=== PATIENT | female | born 1950 | race Caucasian/White ===

== ENCOUNTER 2020-11-23 17:46 | Observation (INO) ==
[2020-11-23 18:35] LABS: Basophils # (auto) 0.04 K/uL (0-0.2); Basophils % (auto) 0.5 %; Eosinophils # (auto) 0.14 K/uL (0-0.5); Eosinophils % (auto) 1.9 %; Hemoglobin 12.6 g/dL (12.0-16.0); Immature Granulocytes # (auto) 0.01 K/uL (0.00-0.02); Immature Granulocytes % (auto) 0.1 %; Lymphocytes # (auto) 1.69 K/uL (1.2-3.4); Lymphocytes % (auto) 22.8 %; Mean Corpuscular Hemoglobin 28.9 pg (25-34); Mean Corpuscular Hgb Conc 33.2 g/dL (32-36); Mean Corpuscular Volume 87.2 fL (80-100); Mean Platelet Volume 10.1 fL (7.4-10.4); Monocytes # (auto) 0.44 K/uL (0.11-0.59); Monocytes % (auto) 5.9 %; Neutrophils # (auto) 5.08 K/uL (1.4-6.5); Neutrophils % (auto) 68.8 %; Platelet Count 222 K/uL (130-400); RDW Coefficient of Variation 14.5 % (11.5-14.5); RDW Standard Deviation 45.9 fL (36.4-46.3); Red Blood Count 4.36 M/uL (4.2-5.4)
[2020-11-23 18:47] LABS: Partial Thromboplastin Ratio 0.9; Partial Thromboplastin Time 24.8 Seconds (21.0-31.0); Prothrombin Time 9.8 Seconds (9.0-12.0)
--- NOTE | 2020-11-23 18:52 | XRay Report ---
XR chest 1V portable CLINICAL HISTORY: Chest Pain COMPARISON STUDY: Chest radiograph November 16, 2020. FINDINGS: Lung volumes are normal. Lungs are clear. There is no pneumothorax or pleural effusion. Car diac size is normal. Mediastinal contours are normal. There is no evidence for pulmonary edema. IMPRESSION: No acute cardiopulmonary findings. ACT 112: Negative or not required by law. Electronically signed by: Presley Baer M.D. 11/23/2020 6:51 PM
[2020-11-23 18:53] LABS: Alanine Aminotransferase 25 U/L (12-78); Albumin Level 3.7 gm/dl (3.4-5.0); Aspartate Aminotransferase 10 U/L (15-37); BUN Creatinine Ratio 22.7 (10-20); Blood Urea Nitrogen 16 mg/dl (7-18); Calcium 8.9 mg/dl (8.5-10.1); Carbon Dioxide 26 mmol/L (21-32); Chloride 109 mmol/L (98-107); Est GFR (African American) 103.2 ml/min; Glucose 107 mg/dl (70-99); Potassium 3.9 mmol/L (3.5-5.1); Sodium 142 mmol/L (136-145)
[2020-11-23 18:58] LABS: Alkaline Phosphatase 68 U/L (45-117); Bilirubin,Total 0.3 mg/dl (0.2-1); Globulin 3.8 gm/dl (2.5-4.0); Total Protein 7.5 gm/dl (6.4-8.2); Troponin I < 0.015 ng/ml (0-0.045)
--- NOTE | 2020-11-23 19:19 | Emergency Department Note ---
Impression & Plan Atypical chest pain ED Provider Note NAME: DORIE JIMENEZ AGE: 70 SEX: F : 1950 ARRIVES VIA: Walk-In INFORMANT: Patient, ED PROVIDER(S): Leonardo Peres MD Chief Complaint: Chest pain HPI: Patient does present with concern for worsening chest pain. The patient does describe it as pressure and bandlike along the lower chest. The patient does notice some increasing exertional symptoms and associated shortness of breath. Patient denies any infectious symptoms. The patient is vaccinated for Covid. The patient denies any prior history of DVT or PE. The patient does have family history of CAD. Patient had been seen in the outpatient setting and was being followed and did have a referral with cardiology today with Dr. Alvarez who referred her here for further evaluation and treatment. The patient denies any diaphoresis, nausea, or vomiting. Patient denies any cough. Patient states that her current pain is around 6 out of 10. ROS: See HPI for pertinent positives and negatives. A total of 10 systems were reviewed and otherwise negative. Past medical history: See below Surgical history: See below Social history: See below Physical Exam: GENERAL: NAD, wearing a mask, non-toxic. EYE EXAM: Normal conjunctiva. PERRL, no anisocoria and EOM's grossly intact w/o pain. NECK: Supple, no nuchal rigidity, no adenopathy, non-tender. No signs of meningismus. LUNGS: Clear to auscultation. Normal chest wall mechanics. HEART: NSR, no MRG. ABDOMEN: Abdomen soft, non-tender, normo-active bowel sounds, no masses, no rebound or guarding. BACK: No CVA TTP. SKIN: No rashes and no bruising. UPPER EXTREMITIES: Upper extremities are grossly normal. LOWER EXTREMITIES: Grossly normal, no edema. Negative Homans' sign bilaterally. NEURO EXAM: A&O x3, cranial nerves II-XII grossly intact, normal speech, moves all 4 extremities on command w/o issue. Differential diagnoses: Cardiac ischemia, aortic dissection, pulmonary embolism, pneumothorax, pneumonia, pericarditis, myocarditis, esophageal rupture, GERD, cholecystitis, pancreatitis, musculoskeletal, as well as other pathologies. Course: Patient was seen and evaluated the bedside. Full history physical exam was performed. EKG interpreted by me Normal sinus rhythm, rate of 64, normal intervals, normal axis, T wave inversion in the lateral and high lateral leads. Imaging Studies: See Below Cardiac monitoring: An order was placed for continuous cardiac monitoring. The monitor shows a rate of 65 with sinus rhythm. MDM: Patient did present with concerns for atypical chest pain. The patient did have bladder completed along with an EKG. Patient's EKG did show T wave inversions in the lateral and high lateral leads. The patient was ordered full dose aspirin along with nitro. I did speak with the on-call hospitalist and the mayank ent was admitted to the medicine service by Dr. Hollingsworth. Initial troponin negative. Patient has a normal white count H&H and platelet count. The patient's kidney function does show some prerenal azotemia but is otherwise unremarkable. Covid negative. Chest x-ray is clear. Past Med/Surg History Medical History Acid reflux REASON FOR UPCOMING PROCEDURE Asthma CONTROLLED Bronchial spasms HX , NONE IN LONG TIME COPD (chronic obstructive pulmonary disease) CONTROLLED Dyslipidemia Gastritis REASON FOR UPCOMING PROCEDURE History of colon polyps History of depression History of high blood pressure IBS (irritable bowel syndrome) Nausea after anesthesia Surgical History History of bladder surgery BLADDER TAC History of cataract surgery BOTH EYES History of colonoscopy History of elbow surgery History of eye surgery LENSE IMPLANTS - BOTH EYES, MOST RECENT - LEFT, FEW WEEKS AGO - HEALING History of hysterectomy Family History Mother Family history of diabetes mellitus Father Family history of diabetes mellitus Brother Family history of diabetes mellitus Brother Family history of diabetes mellitus Sister Family history of diabetes mellitus Sister Family history of diabetes mellitus Social History Smoking Status: Never smoker Hx Alcohol Use: Yes Preferred Language: Algerian 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 Ability: Effective 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 Beliefs That Will Affect Care: None and Jainism Jainism Beliefs: PRESYBETERIAN Current Living Situation: Spouse and Family Feels Safe at Home: Yes Assistive Devices: None Allergies Allergies Allergy/AdvReac Type Severity Reaction Status Date / Time lisinopril AdvReac Intermediate Cough,bronc Verified 11/23/20 19:17 hospasm acetaminophen [From Percocet] AdvReac Unknown Nausea Verified 11/23/20 19:17 oxycodone [From Percocet] AdvReac Unknown Nausea Verified 11/23/20 19:17 Home Meds Home Medications Medication Instructions Recorded Confirmed insulin aspart U-100 100 unit/mL 14 unit SUBCUT UD 10/26/20 11/23/20 (3 mL) subcutaneous pen (Novolog Flexpen U-100 Insulin aspart) insulin glargine 100 unit/mL (3 30 unit SUBCUT QAM 10/26/20 11/23/20 mL) subcutaneous pen (Basaglar KwikPen U-100 Insulin) montelukast 10 mg tablet 10 mg PO QAM 10/26/20 11/23/20 (Singulair) pantoprazole 40 mg tablet,delayed 40 mg PO QAM 10/26/20 11/23/20 release (Protonix) ondansetron 4 mg disintegrating 4 mg PO Q8H PRN 11/12/20 11/23/20 tablet Previous Rx's Medication Instructions Recorded amlodipine 10 mg tablet 10 mg PO DAILY #30 tab 11/16/20 Results & Data (ED) Vital Signs Vital Signs - 24 hr 11/23/20 18:07 11/23/20 18:27 11/23/20 19:14 Temperature 36.9 C Temperature Source Temporal Artery Scan Pulse Rate 69 74 Pulse Rhythm Regular Pulse Strength Normal Respiratory Rate 20 17 Respiratory Effort / Characteristics Non-Labored Spontaneous Respiratory Depth Normal Respiratory Pattern Regular Blood Pressure 191/81 H 183/81 H Blood Pressure Mean 117 115 Blood Pressure Position Sitting Pulse Oximetry 97 100 Oxygen Delivery Method Room Air Room Air Sepsis Recent Fever Within 48 Hours No Sepsis New/Unexplained Change in Mental Status N/A Sepsis Action Taken by Nursing No Action Required 11/23/20 19:30 11/23/20 20:00 Temperature Temperature Source Pulse Rate 73 62 Pulse Rhythm Pulse Strength Respiratory Rate 21 15 Respiratory Effort / Characteristics Respiratory Depth Respiratory Pattern Blood Pressure 189/89 H 156/75 H Blood Pressure Mean 122 102 Blood Pressure Position Pulse Oximetry 98 95 Oxygen Delivery Method Room Air Sepsis Recent Fever Within 48 Hours Sepsis New/Unexplained Change in Mental Status Sepsis Action Taken by Prison Medications Current Medication List: was personally reviewed by me Laboratory Data Attestation: I reviewed the patient's lab results. Result diagrams: 11/23/20 18:24 11/23/20 18:24 Lab Results 11/23/20 11/23/20 11/23/20 Range/Units 18:24 18:24 18:24 WBC 7.40 (4.8-10.8) K/uL RBC 4.36 (4.2-5.4) M/uL Hgb 12.6 (12.0-16.0) g/dL Hct 38.0 (37-47) % MCV 87.2 (80-100) fL MCH 28.9 (25-34) pg MCHC 33.2 (32-36) g/dL RDW Std Deviation 45.9 (36.4-46.3) fL RDW Coeff of Rolando 14.5 (11.5-14.5) % Plt Count 222 (130-400) K/uL MPV 10.1 (7.4-10.4) fL Immature Gran % (Auto) 0.1 % Neut % (Auto) 68.8 % Lymph % (Auto) 22.8 % [place] % (Auto) 5.9 % Eos % (Auto) 1.9 % Baso % (Auto) 0.5 % Neut # (Auto) 5.08 (1.4-6.5) K/uL Lymph # (Auto) 1.69 (1.2-3.4) K/uL [place] # (Auto) 0.44 (0.11-0.59) K/uL Eos # (Auto) 0.14 (0-0.5) K/uL Baso # (Auto) 0.04 (0-0.2) K/uL Immature Gran # (Auto) 0.01 (0.00-0.02) K/uL PT 9.8 (9.0-12.0) Seconds INR 1.0 (0.9-1.1) APTT 24.8 (21.0-31.0) Seconds PTT Ratio 0.9 Sodium 142 (136-145) mmol/L Potassium 3.9 (3.5-5.1) mmol/L Chloride 109 H (98-107) mmol/L Carbon Dioxide 26 (21-32) mmol/L Anion Gap 7.0 (3-11) BUN 16 (7-18) mg/dl Creatinine 0.70 (0.6-1.2) mg/dl Est Cr Clr Drug Dosing 79.0 ml/min Est GFR ( Amer) 103.2 ml/min Est GFR (Non-Af Amer) 89.0 ml/min BUN/Creatinine Ratio 22.7 H (10-20) Glucose 107 H (70-99) mg/dl Calcium 8.9 (8.5-10.1) mg/dl Total Bilirubin 0.3 (0.2-1) mg/dl AST 10 L (15-37) U/L ALT 25 (12-78) U/L Alkaline Phosphatase 68 (45-117) U/L Troponin I < 0.015 (0-0.045) ng/ml Total Protein 7.5 (6.4-8.2) gm/dl Albumin 3.7 (3.4-5.0) gm/dl Globulin 3.8 (2.5-4.0) gm/dl Albumin/Globulin Ratio 1.0 (0.9-2) COVID-19 Eval Order SARS-CoV-2 (PCR) (Negative) 11/23/20 11/23/20 Range/Units 19:53 19:53 WBC (4.8-10.8) K/uL RBC (4.2-5.4) M/uL Hgb (12.0-16.0) g/dL Hct (37-47) % MCV (80-100) fL MCH (25-34) pg MCHC (32-36) g/dL RDW Std Deviation (36.4-46.3) fL RDW Coeff of Rolando (11.5-14.5) % Plt Count (130-400) K/uL MPV (7.4-10.4) fL Immature Gran % (Auto) % Neut % (Auto) % Lymph % (Auto) % [place] % (Auto) % Eos % (Auto) % Baso % (Auto) % Neut # (Auto) (1.4-6.5) K/uL Lymph # (Auto) (1.2-3.4) K/uL [place] # (Auto) (0.11-0.59) K/uL Eos # (Auto) (0-0.5) K/uL Baso # (Auto) (0-0.2) K/uL Immature Gran # (Auto) (0.00-0.02) K/uL PT (9.0-12.0) Seconds INR (0.9-1.1) APTT (21.0-31.0) Seconds PTT Ratio Sodium (136-145) mmol/L Potassium (3.5-5.1) mmol/L Chloride (98-107) mmol/L Carbon Dioxide (21-32) mmol/L Anion Gap (3-11) BUN (7-18) mg/dl Creatinine (0.6-1.2) mg/dl Est Cr Clr Drug Dosing ml/min Est GFR ( Amer) ml/min Est GFR (Non-Af Amer) ml/min BUN/Creatinine Ratio (10-20) Glucose (70-99) mg/dl Calcium (8.5-10.1) mg/dl Total Bilirubin (0.2-1) mg/dl AST (15-37) U/L ALT (12-78) U/L Alkaline Phosphatase (45-117) U/L Troponin I (0-0.045) ng/ml Total Protein (6.4-8.2) gm/dl Albumin (3.4-5.0) gm/dl Globulin (2.5-4.0) gm/dl Albumin/Globulin Ratio (0.9-2) COVID-19 Eval [address] Covid[address] [facility] SARS-CoV-2 (PCR) NEGATIVE (Negative) Administered Medications Heparin Sodium/Dextrose (Heparin Sodium/Dextrose) 25,000 units in 500 mls @ 16 mls/hr IV .Q24H [facility]; Protocol Stop: 12/23/20 22:14 Last Admin: 11/23/20 22:11 Dose: 800 units/hr, 16 mls/hr Documented by: [id number] Cosigned by: [id number] Nitroglycerin (Nitroglycerin Sl 0.4 Mg/Tab Tab) 0.4 mg SL PRN PRN PRN Reason: Chest Pain Stop: 12/23/20 19:34 Last Admin: 11/23/20 20:12 Dose: 0.4 mg Documented by: [id number] Discontinued Medications Aspirin (Aspirin Chew 324 Mg) 324 mg PO NOW STA Stop: 11/23/20 19:36 Last Admin: 11/23/20 19:51 Dose: 324 mg Documented by: [id number] Heparin Sodium (Porcine) (Heparin Ivp From [facility] Protocol (With Bolus)) 4,000 units IV NOW ONE Stop: 11/23/20 22:16 Last Admin: 11/23/20 22:10 Dose: 4,000 units Documented by: [id number] Cosigned by: [id number] Heparin Sodium/Dextrose (Heparin Iv Adult Wt-Based Low-Dose With Bolus Protocol) 1 ea IV NOW STA; Protocol Stop: 11/23/20 21:07 Last Admin: 11/23/20 22:10 Dose: Not Given Documented by: [id number] Nitroglycerin (Nitroglycerin Sl 0.4 Mg/Tab Tab) 0.4 mg SL NOW STA Stop: 11/23/20 19:36 Last Admin: 11/23/20 19:51 Dose: 0.4 mg Documented by: [id number] Imaging Data Radiologist's Impression: Chest X-Ray 11/23/20 18:22 XR chest 1V portable CLINICAL HISTORY: Chest Pain COMPARISON STUDY: Chest radiograph November 16, 2020. FINDINGS: Lung volumes are normal. Lungs are clear. There is no pneumothorax or pleural effusion. Cardiac size is normal. Mediastinal contours are normal. There is no evidence for pulmonary edema. IMPRESSION: No acute cardiopulmonary findings. ACT 112: Negative or not required by law. Electronically signed by: Presley Bear M.D. 11/23/2020 6:51 PM Discharge Plan Visit Data Chief Complaint: Cardiac Assessment Stated Complaint: ANGINA, REF BY DR. BLANCHARD ED Provider: Leonardo Peres Discharge Problem: Atypical chest pain Patient Disposition: Admitted As Inpatient Discharge Instructions Interventions: ED Discharge Assessment Last Done: 11/23/20 23:30
[2020-11-23] MEDS ORDERED: NITROGLYCERIN SL 0.4 MG/TAB TAB SL STA (19:35)
[2020-11-23] MEDS ORDERED: ASPIRIN CHEW 324 MG PO STA (19:35)
[2020-11-23] MEDS: NITROGLYCERIN SL 0.4 MG/TAB TAB SL PRN (20:12)
--- NOTE | 2020-11-23 20:42 | History & Physical Report ---
Date of Service November 23, 2020 Assessment & Plan (1) Unstable angina: Plan: 70-year-old female with a past medical history of dyslipidemia, hypertension, type 2 diabetes who is admitted to the hospital for work-up of unstable angina with atypical chest pain. Atypical chest pain Initial troponin negative, EKG without physical ST changes or major changes in morphology Improved symptoms with morphine and personal risk factors as well as extensive family history more concerning Heart score 5; We will admit to telemetry unit for monitoring. Cardiology consult appreciated, patient may be a candidate for catheterization given extensive risk factors, family history, current presentation. Started on aspirin daily, heparin drip N.p.o. Echo in the a.m. As needed nitro and EKG for chest pain Trend tropes x2 DM2 Continue home insulin glargine 30 units subcu a.m. Cut insulin dosing in half while n.p.o. Sliding scale insulin for mealtime coverage Carb consistent diet Lipid and A1c in the a.m. Hypertension Continue amlodipine 10 Will need to be started on metoprolol after catheterization Previously was on CPAP at home for treatment of CORAL however stopped using her machine because she was getting frequent pneumonias. She recently found out that her machine was recalled but has been unable to get a new one as of yet. CPAP nightly DVT ppx: on heparin drip FEN/GI: NPO, carb consistent after TTE/Cath Bowel regimen: miralax sched Code Status: full code Dispo: Med/Tele (2) Dyslipidemia: (3) Hypertension: (4) Diabetes type 2, controlled: History of Present Illness Primary Care Provider: Sae Wilkes MD 70-year-old female with past medical history of dyslipidemia, hypertension, type 2 diabetes who presents emergency department for atypical chest pain after being seen by her pharmacy ancillary earlier today. She states that a few days ago she saw her PCP who was concerned about the growing frequency of her chest pain episodes. He directed her to have bedrest at home and see Dr. yeboah. Today she was able to have her appointment with Dr. yeboah whereupon he felt that she was having episodes of unstable angina and directed her to come to the emergency department. She states that she has been having on and off periods of chest pain over the last 6 weeks that have been increasing in frequency. She states that at this time she has a tight "bandlike" pressure across the top of her abdomen just below her sternum, as well as across the tops of her shoulders. She states that this pain does not radiate anywhere else. She does have increased shortness of breath while she is up and walking around which is new. She states that sometimes this pain and shortness of breath will also wake her from sleeping in the middle of the night. In order to make the pain go away she normally either takes a warm shower or sits and tries to breathe easily until the pain goes away. She does attest to an extensive family history of cardiac disease. She has had multiple siblings and parents have heart attacks or of heart attacks between the ages of 63 and 70. She also has a strong family history of type 2 diabetes and has it herself. She was given 325 mg of aspirin upon arrival to the emergency room as well as a nitroglycerin sublingual tab which she said did improve some of the chest and shoulder pressure. She does attest that this year has been quite stressful for her. 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 She states that her daughter is also currently going through a divorce and she currently has custody of her 9-year-old special needs granddaughter. She is eager to get better and get out of the hospital so that she may return to taking care of her family. Allergies Allergy/AdvReac Type Severity Reaction Status Date / Time lisinopril AdvReac Intermediate Cough,bronc Verified 11/23/20 19:17 hospasm acetaminophen [From Percocet] AdvReac Unknown Nausea Verified 11/23/20 19:17 oxycodone [From Percocet] AdvReac Unknown Nausea Verified 11/23/20 19:17 Home Medications Medication Instructions Recorded Confirmed Type insulin aspart U-100 100 unit/mL 14 unit SUBCUT UD 10/26/20 11/23/20 History (3 mL) subcutaneous pen (Novolog Flexpen U-100 Insulin aspart) insulin glargine 100 unit/mL (3 30 unit SUBCUT QAM 10/26/20 11/23/20 History mL) subcutaneous pen (Basaglar KwikPen U-100 Insulin) montelukast 10 mg tablet 10 mg PO QAM 10/26/20 11/23/20 History (Singulair) pantoprazole 40 mg tablet,delayed 40 mg PO QAM 10/26/20 11/23/20 History release (Protonix) ondansetron 4 mg disintegrating 4 mg PO Q8H PRN 11/12/20 11/23/20 History tablet amlodipine 10 mg tablet 10 mg PO DAILY #30 tab 11/16/20 11/23/20 Rx Past Med/Surg History Medical History Acid reflux REASON FOR UPCOMING PROCEDURE Asthma CONTROLLED Bronchial spasms HX , NONE IN LONG TIME COPD (chronic obstructive pulmonary disease) CONTROLLED Dyslipidemia Gastritis REASON FOR UPCOMING PROCEDURE History of colon polyps History of depression History of high blood pressure IBS (irritable bowel syndrome) Nausea after anesthesia Surgical History History of bladder surgery BLADDER TAC History of cataract surgery BOTH EYES History of colonoscopy History of elbow surgery History of eye surgery LENSE IMPLANTS - BOTH EYES, MOST RECENT - LEFT, FEW WEEKS AGO - HEALING History of hysterectomy Family History Mother Family history of diabetes mellitus Father Family history of diabetes mellitus Brother Family history of diabetes mellitus Brother Family history of diabetes mellitus Sister Family history of diabetes mellitus Sister Family history of diabetes mellitus Social History Smoking Status: Never smoker Hx Alcohol Use: No Hx Substance Use: No Preferred Language: Trinidadian 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 Ability: Effective Manager Rehab Required: No Beliefs That Will Affect Care: None and Roman Catholic Roman Catholic Beliefs: EPISCOPAL Current Living Situation: Spouse and Family Current Living Situation Comment: Home with and granddaughter Feels Safe at Home: Yes Assistive Devices: None Review of Systems Review of Systems: All systems reviewed & are unremarkable except as noted in HPI & below Cardiovascular: + chest pain, + chest pain with activity, + dyspnea on exertion and + paroxysmal nocturnal dyspnea; no radiating jaw, neck or arm pain, no palpitations, no syncope, no edema and no calf pain Physical Exam Physical Exam: Constitutional: obese, in no apparent distress, sitting comfortably in bed. Eyes: EOMI, pupils equal and reactive bilaterally, no scleral icterus Cardiac: RRR, no murmurs, gallops or rubs. Normal S1, S2 Pulm: CTA BL, no wheezes, rhonchi, crackles or rubs, moving air well throughout both lungs Abd: soft, TTP over epigastrium and LUQ, normal bowel sounds, no rebound or guarding Extremities: 2+ peripheral pulses, no edema Neuro: no focal deficits, moving all 4 limbs, A&Ox3 Results & Data Results & Data ([facility]) Vital Signs (Past 12 Hours) Vital Signs Temp Pulse Resp BP Pulse Ox 11/23/20 20:00 62 15 156/75 H 95 11/23/20 19:30 73 21 189/89 H 98 11/23/20 19:14 74 17 183/81 H 100 11/23/20 18:07 36.9 C 69 20 191/81 H 97 Laboratory Results Laboratory Results WBC 7.40 K/uL (4.8-10.8) 11/23/20 18:24 RBC 4.36 M/uL (4.2-5.4) 11/23/20 18:24 Hgb 12.6 g/dL (12.0-16.0) 11/23/20 18:24 Hct 38.0 % (37-47) 11/23/20 18:24 MCV 87.2 fL (80-100) 11/23/20 18:24 MCH 28.9 pg (25-34) 11/23/20 18:24 MCHC 33.2 g/dL (32-36) 11/23/20 18:24 RDW Std Deviation 45.9 fL (36.4-46.3) 11/23/20 18:24 RDW Coeff of Rolando 14.5 % (11.5-14.5) 11/23/20 18:24 Plt Count 222 K/uL (130-400) 11/23/20 18:24 MPV 10.1 fL (7.4-10.4) 11/23/20 18:24 Immature Gran % (Auto) 0.1 % 11/23/20 18:24 Neut % (Auto) 68.8 % 11/23/20 18:24 Lymph % (Auto) 22.8 % 11/23/20 18:24 [place] % (Auto) 5.9 % 11/23/20 18:24 Eos % (Auto) 1.9 % 11/23/20 18:24 Baso % (Auto) 0.5 % 11/23/20 18:24 Neut # (Auto) 5.08 K/uL (1.4-6.5) 11/23/20 18:24 Lymph # (Auto) 1.69 K/uL (1.2-3.4) 11/23/20 18:24 [place] # (Auto) 0.44 K/uL (0.11-0.59) 11/23/20 18:24 Eos # (Auto) 0.14 K/uL (0-0.5) 11/23/20 18:24 Baso # (Auto) 0.04 K/uL (0-0.2) 11/23/20 18:24 Immature Gran # (Auto) 0.01 K/uL (0.00-0.02) 11/23/20 18:24 PT 9.8 Seconds (9.0-12.0) 11/23/20 18:24 INR 1.0 (0.9-1.1) 11/23/20 18:24 APTT 24.8 Seconds (21.0-31.0) 11/23/20 18:24 PTT Ratio 0.9 11/23/20 18:24 Sodium 142 mmol/L (136-145) 11/23/20 18:24 Potassium 3.9 mmol/L (3.5-5.1) 11/23/20 18:24 Chloride 109 mmol/L (98-107) H 11/23/20 18:24 Carbon Dioxide 26 mmol/L (21-32) 11/23/20 18:24 Anion Gap 7.0 (3-11) 11/23/20 18:24 BUN 16 mg/dl (7-18) 11/23/20 18:24 Creatinine 0.70 mg/dl (0.6-1.2) 11/23/20 18:24 Est Cr Clr Drug Dosing 79.0 ml/min 11/23/20 18:24 Est GFR ( Amer) 103.2 ml/min 11/23/20 18:24 Est GFR (Non-Af Amer) 89.0 ml/min 11/23/20 18:24 BUN/Creatinine Ratio 22.7 (10-20) H 11/23/20 18:24 Glucose 107 mg/dl (70-99) H 11/23/20 18:24 POC Glucose 100 mg/dl (70-99) H 11/23/20 23:56 Calcium 8.9 mg/dl (8.5-10.1) 11/23/20 18:24 Total Bilirubin 0.3 mg/dl (0.2-1) 11/23/20 18:24 AST 10 U/L (15-37) L 11/23/20 18:24 ALT 25 U/L (12-78) 11/23/20 18:24 Alkaline Phosphatase 68 U/L (45-117) 11/23/20 18:24 Troponin I < 0.015 ng/ml (0-0.045) 11/23/20 18:24 Total Protein 7.5 gm/dl (6.4-8.2) 11/23/20 18:24 Albumin 3.7 gm/dl (3.4-5.0) 11/23/20 18:24 Globulin 3.8 gm/dl (2.5-4.0) 11/23/20 18:24 Albumin/Globulin Ratio 1.0 (0.9-2) 11/23/20 18:24 COVID-19 Eval Order Covid19 at [facility] 11/23/20 19:53 SARS-CoV-2 (PCR) NEGATIVE (Negative) 11/23/20 19:53 Impressions Chest X-Ray 11/23/20 18:22 XR chest 1V portable CLINICAL HISTORY: Chest Pain COMPARISON STUDY: Chest radiograph November 16, 2020. FINDINGS: Lung volumes are normal. Lungs are clear. There is no pneumothorax or pleural effusion. Cardiac size is normal. Mediastinal contours are normal. There is no evidence for pulmonary edema. IMPRESSION: No acute cardiopulmonary findings. ACT 112: Negative or not required by law. Electronically signed by: Presley Bear M.D. 11/23/2020 6:51 PM Supervising Physician Co-Signing Physician Notes Patient seen and examined, chart reviewed, case discussed with Dr. Mohan and I agree with her assessment and plan as documented above. In brief, patient is a 70-year-old female with history of hypertension, hyperlipidemia, diabetes, GERD presenting at the request of her pharmacy ancillary for concern for unstable angina. Patient endorses increased frequency and severity of chest discomfort. She reports bandlike pressure across the top of her abdomen as well as into her shoulders which occurs both at rest and with exertion. She also endorses dyspnea on exertion as well as nocturnal dyspnea. Troponin x2 Negative EKG with mild T wave changes present in V5 V6 when compared to prior On exam she is afebrile, hemodynamically stable, nontoxic in appearance. HEENTnormocephalicatraumatic, pupils equal round reactive to light, neck supple, no JVD Heart+ S1, S2, regular, no murmurs/rubs/gallops Lungsequal air entry bilaterally, no rales/rhonchi/wheezes Abdomenpositive bowel sounds, soft, tender over epigastric area (states tenderness is different than the pain that she feels) no rebound/guarding Extremitieswarm, well-perfused, 2+ pulses no clubbing/cyanosis/edema Neurogrossly intact Labs and images reviewed Assessment/plan 70-year-old female presenting with bandlike upper abdominal pain as well as pain in her shoulders which occurs at rest and with exertion. Atypical presentation. Patient with significant risk factors to include hypertension, hyperlipidemia, diabetes, family history of coronary artery disease. She follows with cardiology, Dr. Yeboah, last seen on 11/23/20expressed concern for unstable angina Admit to medical with telemetrytrend troponin Check 2D echo Check lipid panel and hemoglobin A1c We will initiate heparin drip Cardiology consultation appreciated Remainder of plan as above Resident Activity Tracking Resident Involvement: Resident Care Provided Care Provided: Adult Hospital Medicine (1) Hypertension Hypertension type: unspecified Qualified Code(s): I10 - Essential (primary) hypertension
[2020-11-23] MEDS ORDERED: Heparin IV Adult Wt-Based Low-Dose WITH Bolus Protocol IV STA (21:06)
[2020-11-23] MEDS ORDERED: Heparin Adult LOW DOSE Wt-Based Dextrose 5% 25,000 units/500 mL IV SCH (22:15)
[2020-11-23] MEDS ORDERED: Heparin IVP from UFH Protocol (WITH Bolus) IV ONE (22:15)
[2020-11-24] MEDS ORDERED: POLYETHYLENE (MIRALAX) 17 GM PACK PO PRN (00:26)
[2020-11-24] MEDS ORDERED: METOPROLOL TARTRATE 1 MG/ML VIAL IV PRN (00:26)
[2020-11-24] MEDS ORDERED: MAGNESIUM HYDROXIDE SUSP 30 ML UDC PO PRN (00:26)
[2020-11-24] MEDS ORDERED: ONDANSETRON INJ 2 MG/ML 2 ML VIAL IV PRN (00:26)
[2020-11-24] MEDS ORDERED: MoRPHine SULFATE 2 MG/ML CARP IV PRN (00:26)
[2020-11-24] MEDS: SODIUM CHLORIDE 0.9% 1000ML 1,000 ML IV SCH ×2 (01:26→09:42)
[2020-11-24] MEDS ORDERED: CARBOHYDRATES FOR HYPOGLYCEMIA PO PRN (01:30)
[2020-11-24] MEDS ORDERED: DEXTROSE 50% 50 ML SYRINGE IV PRN (01:30)
[2020-11-24] MEDS ORDERED: GLUCOSE 10 TABS/TUBE PO PRN (01:30)
[2020-11-24] MEDS ORDERED: GLUCAGON FOR INJ 1 MG VIAL IM PRN (01:30)
[2020-11-24] MEDS ORDERED: GLUCOSE 40% GEL 15 GM TUBE PO PRN (01:30)
[2020-11-24 05:07] LABS: Partial Thromboplastin Ratio 1.9
[2020-11-24] MEDS: NITROGLYCERIN SL 0.4 MG/TAB TAB SL PRN (06:35)
--- NOTE | 2020-11-24 06:43 | Billing Data ---
Date of Service November 23, 2020 Coding Level of Care Code 51137 Initial Inpt Care Lvl 3
[2020-11-24 06:44] LABS: Chol HDL Ratio 4; Cholesterol 193 mg/dl (0-200); HDL Cholesterol 46 mg/dl; LDL Cholesterol Calculated 118 mg/dl; Triglycerides 145 mg/dl (0-150); VLDL Cholesterol 29 mg/dl
[2020-11-24 07:30] LABS: Estimated Average Glucose 169 mg/dl; Hemoglobin A1C 7.5 % (4.5-5.6)
--- NOTE | 2020-11-24 08:58 | Electrocardiogram Report ---
Test Reason : Blood Pressure : / mmHG Vent. Rate : 061 BPM Atrial Rate : 061 BPM P-R Int : 138 ms QRS Dur : 082 ms QT Int : 452 ms P-R-T Axes : 151 -25 155 degrees QTc Int : 455 ms Unusual P axis, possible ectopic atrial rhythm Left ventricular hypertrophy with repolarization abnormality Cannot rule out Septal infarct (cited on or before 23-NOV-2020) Abnormal ECG When compared with ECG of 23-NOV-2020 20:52, (unconfirmed) Ectopic atrial rhythm has replaced Sinus rhythm Confirmed by Emmett Osuna ([id number]) on 11/24/2020 8:58:18 AM Referred By: Iker Levy Confirmed By:Emmett Osuna
[2020-11-24] MEDS ORDERED: ASPIRIN 81 MG ECTAB PO SCH (09:00)
[2020-11-24] MEDS ORDERED: MONTELUKAST SODIUM 10 MG TABLET PO SCH (09:00)
[2020-11-24] MEDS ORDERED: amLODIPine BESYLATE 5 MG TAB PO SCH (09:00)
[2020-11-24] MEDS ORDERED: PANTOprazole 40 MG TAB PO SCH (09:00)
[2020-11-24] MEDS ORDERED: INSULIN GLARGINE SOLOSTAR 100 UNITS/ML 3 ML PEN SQ SCH (09:00)
[2020-11-24] MEDS ORDERED: NITROGLYCERIN/D5W 100MCG/ML 20ML SYR ONE (10:17)
[2020-11-24] MEDS ORDERED: HEPARIN (PORCINE) 1000 UNIT/ML 10 ML (CATH LAB USE ONLY) ONE (10:17)
[2020-11-24] MEDS ORDERED: niCARdipine HCL INJ 2.5 MG/ML 10 ML AMP ONE (10:17)
[2020-11-24] MEDS ORDERED: MIDAZOLAM HCL 1 MG/ML 2ML VIAL ONE (10:17)
[2020-11-24] MEDS ORDERED: fentaNYL citrate 100 MCG/2 ML VIAL ONE (10:17)
[2020-11-24] MEDS: INSULIN ASPART 100 UNITS/ML 3 ML PEN SQ SCH ×3 (10:39→17:23)
--- NOTE | 2020-11-24 10:43 | Pre Anesthesia Assessment ---
Date of Service November 24, 2020 Pre Sedation Assessment Vital Signs Temp Pulse Pulse Resp BP BP Pulse Ox 11/24/20 10:17 60 97 11/24/20 07:46 97.7 F 64 20 176/67 H 97 11/24/20 06:34 87 20 175/94 H 96 11/24/20 04:10 97.9 F 72 20 164/76 H 92 11/24/20 02:50 55 L 18 97 11/24/20 01:24 57 L 16 98 11/24/20 00:46 62 11/24/20 00:26 97.5 F L 68 16 170/72 H 97 11/23/20 23:00 56 L 14 160/69 H 98 11/23/20 22:30 56 L 15 168/67 H 99 11/23/20 21:30 61 16 153/70 H 98 11/23/20 21:00 59 L 12 161/85 H 98 11/23/20 20:30 64 23 98 11/23/20 20:00 62 15 156/75 H 95 11/23/20 19:30 73 21 189/89 H 98 11/23/20 19:14 74 17 183/81 H 100 11/23/20 18:07 98.4 F 69 20 191/81 H 97 Cardiovascular RRR, no murmur, no edema Respiratory normal respiratory effort, lungs clear to auscultation Pre-Sedation Airway Assessment Smoking Status: Never smoker Hx Sleep Apnea: Yes Hx Difficult Intubation: No Short, Thick Neck: No Thyromental Distance: > or= 3.5 Finger Breadths Oral Cavity: + WNL Mallampati Class: III ASA: ASA3 NPO Status Date of Last Intake of Fluids: 11/24/20 Time of Last Intake of Fluids: 07:00 Date of Last Intake of Solid Food: 11/23/20 Procedure Planning Contraindications for Sedation: none Current Medications Reviewed: Yes Notes The planned sedation has been discussed with the patient. Informed Consent was obtained. I have identified the patient, determined the appropriateness of sedation and have assessed the patient immediately prior to the procedure. All medicine(s) and interventions are by my order.
--- NOTE | 2020-11-24 11:05 | XCELERA ---
[id number]
--- NOTE | 2020-11-24 11:07 | Post Anesthesia Assessment ---
Date of Service November 24, 2020 Post Sedation Assessment Vital Signs Temp Pulse Pulse Resp BP BP Pulse Ox 11/24/20 10:17 60 97 11/24/20 07:46 97.7 F 64 20 176/67 H 97 11/24/20 06:34 87 20 175/94 H 96 11/24/20 04:10 97.9 F 72 20 164/76 H 92 11/24/20 02:50 55 L 18 97 11/24/20 01:24 57 L 16 98 11/24/20 00:46 62 11/24/20 00:26 97.5 F L 68 16 170/72 H 97 11/23/20 23:00 56 L 14 160/69 H 98 11/23/20 22:30 56 L 15 168/67 H 99 11/23/20 21:30 61 16 153/70 H 98 11/23/20 21:00 59 L 12 161/85 H 98 11/23/20 20:30 64 23 98 11/23/20 20:00 62 15 156/75 H 95 11/23/20 19:30 73 21 189/89 H 98 11/23/20 19:14 74 17 183/81 H 100 11/23/20 18:07 98.4 F 69 20 191/81 H 97 Recovery Score Activity: Moves 4 extremities Respiration: Deep Breath/Cough Circulation: +/-20% PreAnes Value Consciousness: Fully Awake Oxygen Saturation: O2 needed for >90% Discharge Sedation Level of Care: Fast Track Phase II Post Sedation Plan On clinical assessment, the patient appears to have tolerated the sedation without complications. Patient is recovering as anticipated. Patient will continue to be monitored by nursing and may be discharged when sedation discharge criteria are met per below protocol. Upon Completions of procedure up to 15 minutes continue every 5 minute vital sig ns and the P.A.R. score; then discharge to a Phase I or Fast Track to Phase II per the following guidelines: * Discharge Patient to appropriate Phase II area if PAR is 8 or greater or return to pre- procedure baseline. The post - procedure orders will be as directed. * If PAR score is less than 8 or not return to pre-procedure baseline then patient will follow Phase I monitoring till PAR is reached for Phase II. The Phase I may be done in procedure room or may call to secure a Phase I area. * If naloxone or flumazenil are used for reversal, hold in Phase I for continued monitoring from when last reversal dose was given for a minimum of 60 minutes or longer pending the nurse and/or physician discretion of patient condition before discharge to Phase II. Please call the Sedation Physician to re-evaluate and complete post-note for discharge to Phase II area. Do NOT discharge from procedure sedation or Phase 1 until post- sedation evaluation note is complete by procedure /sedation MD Sedation Discharge Instructions to be given to the patient at discharge to home.
--- NOTE | 2020-11-24 11:20 | Cardiac Catheterization ---
[facility] Data: Community Outreach Director Cardiac Status Clinical evaluation leading to the procedure CAD Presenation: Unstable angina Anginal Classification: CCS IV Heart Failure: No Cardiogenic Shock within 24 Hours: No Cardiac Arrest within 24 Hours: No Imaging Studies Past 6 Months: Yes Stress Studies Past 6 Months: No Diagnostic Physicians Name: Oj Ramos MD Status: Elective Closure Device Percutaneous Entry Location: Radial Closure Device: Radial Band Recommendations: Medical Therapy and/or Counseling Intraprocedure Events Significant Disection: No Perforation: No Cardiac Cath Procedure Full Procedure Date November 24, 2020 Pre-Procedure Diagnosis Pre-Procedure Diagnosis: Acute Coronary Syndrome and Angina AUC Score AUC Score: 7 Post-Procedure Diagnosis Post-Procedure Diagnosis: Moderate CAD Procedure(s) Performed Procedure(s) Performed: Coronary Angiography and Left Heart Cath Assembler [employer]ment Oj Ramos MD Network Operations Manager(s) Showers Estimated Blood Loss Estimated Blood Loss: 5 Medication(s) Medication(s): Fentanyl, Heparin, Lidocaine 1%, Nicardipine, Nitroglycerin and Versed Summary of Findings Indication: Suspected unstable angina Access: 6 Fr right radial artery Catheters: Pe Ell Findings: LM -normal caliber, no significant disease LAD -medium caliber, 30% proximal stenosis, distal vessel small with mild disease and wraps around apex. Small to medium caliber D1 with 70% ostial, 70 to 80% mid stenosis. Circumflex -medium caliber, proximal to mid luminal irregularities. RCA -dominant, small to medium caliber, mid segment angulated with luminal irregularities. Small PDA without significant disease. LVEDP -9 Arterial Closure: TR band Summary: 1. Mild nonobstructive CAD in major epicardial vessels -30% proximal LAD 2. Severe branch vessel disease Small to medium caliber D1 with 70% ostial, 70 to 80% mid stenosis 3. Normal intracardiac filling pressure Recommendations: No high risk CAD identified. Recommend medical management of branch vessel disease (appears to have some component of spasmdiagonal appears likely too small for stenting). Can discontinue heparin infusion. Continue amlodipine, consider addition of long-acting nitrate. Hemodynamics Rest Ao:: 112/47/69 Final Ao: 119/47/72 LV: 121/9 Recommendations Recommendations: Medical Therapy and/or Counseling Specimens Specimens: None Radiation Exposure (mGy) 531 Contrast (mls) 50 Fluids (cc crystalloids) Fluids (cc crystalloids): 70 Drains Drains: None Anesthesia Moderate 6513-2699 Procedural Complication(s) None Disposition PCU I attest to the content of the Intraoperative Record and any orders documented therein. Any exceptions are noted below. [facility] Card Cath Procedure Codes Cardiac Catheterization Procedure 1: Cardiovascular Cath Procedures: 86321 Coronaries and LHC (+/-LV) Moderate Sedation Procedure 1: Sedation/Anesthesia: 33424 Mod Sedation by the same physician;Init15 Min Child Age 5 & Up PG Care Time/CCT Total # of Minutes Spent Total Time Spent with Patient: Total time spent is greater than 50% in coordination of care (as documented) at patient's floor/unit and/or counseling patient:
--- NOTE | 2020-11-24 11:47 | Cardiology Progress Note ---
Date of Service November 24, 2020 Assessment & Plan (1) Atypical chest pain: Plan: 2. Branch vessel coronary artery disease 3. Hypertensive heart disease with preserved LV function 4. Type 2 diabetes No high risk findings on cardiac catheterization. Recommend medical management of branch vessel disease Can discontinue heparin Continue aspirin, start statin Continue amlodipine. Would add long-acting nitrate, start Imdur 30 mg daily. Consider SYDNEE/ARB as needed for additional BP control From a cardiac standpoint okay with discharge later today once TR band removed. Close follow-up with Dr. Levy on discharge. Admission and Anticipated Discharge Date Admission Date: November 23, 2020 Subjective Had intermittent chest pain overnight. Underwent cardiac catheterization which showed only branch vessel disease. No high risk findings. Review of Systems Review of Systems: All systems reviewed & are unremarkable except as noted in HPI & below Physical Exam Physical Exam: General: Comfortable HEENT: Sclerae anicteric Lungs: Clear to auscultation bilaterally Cardiac: Regular rate and rhythm, no murmurs. Vascular: TR band in place over right radial artery Abdomen: Soft, nontender Extremities: Well perfused, no peripheral edema Neuro: Nonfocal Psych: Alert orient x3, normal affect and mood Results & Data ([facility]) Vital Signs (Past 12 Hours) Vital Signs Temp Pulse Pulse Resp BP BP Pulse Ox 11/24/20 11:15 58 L 153/66 H 96 11/24/20 11:10 61 158/70 H 96 11/24/20 10:17 60 97 11/24/20 07:46 97.7 F 64 20 176/67 H 97 11/24/20 06:34 87 20 175/94 H 96 11/24/20 04:10 97.9 F 72 20 164/76 H 92 11/24/20 02:50 55 L 18 97 11/24/20 01:24 57 L 16 98 11/24/20 00:46 62 11/24/20 00:26 97.5 F L 68 16 170/72 H 97 PG Care Time/CCT Total # of Minutes Spent Total Time Spent with Patient: Total time spent is greater than 50% in coordination of care (as documented) at patient's floor/unit and/or counseling patient: Coding Level of Care Code 22886 Subseq Hosp Care Lvl 3 Diagnoses Atypical chest pain R07.89
[2020-11-24] MEDS ORDERED: ACETAMINOPHEN 500 MG TAB PO PRN (14:21)
--- NOTE | 2020-11-24 18:57 | Discharge Summary ---
Date of Service November 24, 2020 Admission HPI Per Admitting Provider 70-year-old female with past medical history of dyslipidemia, hypertension, type 2 diabetes who presents emergency department for atypical chest pain after being seen by her welder earlier today. She states that a few days ago she saw her PCP who was concerned about the growing frequency of her chest pain episodes. He directed her to have bedrest at home and see Dr. yeboah. Today she was able to have her appointment with Dr. yeboah whereupon he felt that she was having episodes of unstable angina and directed her to come to the emergency department. She states that she has been having on and off periods of chest pain over the last 6 weeks that have been increasing in frequency. She states that at this time she has a tight "bandlike" pressure across the top of her abdomen just below her sternum, as well as across the tops of her shoulders. She states that this pain does not radiate anywhere else. She does have increased shortness of breath while she is up and walking around which is new. She states that sometimes this pain and shortness of breath will also wake her from sleeping in the middle of the night. In order to make the pain go away she normally either takes a warm shower or sits and tries to breathe easily until the pain goes away. She does attest to an extensive family history of cardiac disease. She has had multiple siblings and parents have heart attacks or of heart attacks between the ages of 63 and 70. She also has a strong family history of type 2 diabetes and has it herself. She was given 325 mg of aspirin upon arrival to the emergency room as well as a nitroglycerin sublingual tab which she said did improve some of the chest and shoulder pressure. She does attest that this year has been quite stressful for her. 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 She states that her daughter is also currently going through a divorce and she currently has custody of her 9-year-old special needs granddaughter. She is eager to get better and get out of the hospital so that she may return to taking care of her family. Principal Diagnosis Atypical Chest Pain Discharge Exam Constitutional WD/WN, vitals as above Eyes + anicteric sclerae Neck trachea midline, no thyromegaly Respiratory normal respiratory effort, lungs clear to auscultation Cardiovascular RRR, no murmur, no edema Chest (Breasts) Additional Comments: Pain on palpation of L sternal border and inferior border of the anterior rib cage b/l. Gastrointestinal (Abdomen) normal bowel sounds, soft, nontender, no hepatosplenomegaly Skin no rashes, warm and dry Psychiatric A+Ox3, euthymic affect Discharge Data Allergies Allergy/AdvReac Type Severity Reaction Status Date / Time lisinopril AdvReac Intermediate Cough,bronc Verified 11/23/20 19:17 hospasm acetaminophen [From Percocet] AdvReac Unknown Nausea Verified 11/23/20 19:17 oxycodone [From Percocet] AdvReac Unknown Nausea Verified 11/23/20 19:17 Consultations 11/23/20 20:07 ED Decision to Admit Stat 11/24/20 00:26 Consult Cardiology Routine Procedures Performed Operation Date: 11/24/20 10:00 Actual Procedures p Cath, Left with Cors and Vent - Sae Ramos MD s Cineradiography w/Routine Exam - Sae Ramos MD Ordered Studies 11/24/20 10:16 CL Cath Imgs for PACS use only Routine Hospital Course (1) Atypical chest pain: Atypical chest pain -Went to the cath lab tech and revealed 30% stenosis of LAD and severe stenosis on minor, branching vessels. Serial troponins negative Cardiology consult recommended long acting nitro, the patient was prescribed isosorbide dinitrate. F/u with PCP within one week DM2 Continue home insulin regimen Hypertension Continue amlodipine 10mg po qd Continue CPAP when able to get replacement at home Total Time Total Time Spent Total Time Spent (In Minutes): 30 Discharge Plan Discharge Items Patient Disposition: Home - Self-Care Reason For Visit: UNSTABLE ANGINA Discharge Diagnosis: Atypical chest pain Activity: Per Instructions section Non-emergency contact: Primary Care Provider Call non-emergency contact if: you have any medication questions, your pain is not controlled and your pain is worsening Follow-up/Referrals: Sae Wilkes MD [Primary Care Provider] - Diet: Carb Consistent or DM2 Addtl Attending Provider Instructions: You were seen in the hospital for atypical chest pain. While you were in the hospital you had a heart catheterization done which revealed mild occlusion in the left anterior descending artery and some severe occlusion in some minor branching arteries. There was no intervention needed at this time. Follow-up with your primary care provider within the next week for further workup for your chest pain. Pending Studies at Discharge: No Stand-Alone Forms: My [facility], Smoking Cessation Medications and DC Order Prescriptions: New isosorbide dinitrate 40 mg capsule, extended release 40 mg PO DAILY Qty: 30 RF: 0 Continued pantoprazole [Protonix] 40 mg tablet,delayed release (DR/EC) 40 mg PO QAM RF: 0 Basaglar KwikPen U-100 Insulin 100 unit/mL (3 mL) insulin pen 30 unit SUBCUT QAM RF: 0 montelukast [Singulair] 10 mg Tablet 10 mg PO QAM RF: 0 insulin aspart U-100 [Novolog Flexpen U-100 Insulin] 100 unit/mL (3 mL) Insulin Pen 14 unit subcut UD RF: 0 ondansetron 4 mg tablet,disintegrating 4 mg PO Q8H PRN (Reason: nausea and vomiting) RF: 0 amlodipine 10 mg tablet 10 mg PO DAILY Qty: 30 RF: 0 Discharge Orders: Discharge Order (Routine); Ordered 11/24/20 Ordered By: Joey House/Other Patient Handouts: A1C, Managing Type 2 Diabetes, Special Foot Care for Diabetes, ED Chest Pain, Uncertain Cause Admission Data Admit Date/Time: 11/23/20 20:10 Attending Provider: Nereida Mccormick Admit Provider: Sherri Mohan Primary Care Provider: Sae Wilkes Other Providers: Darcy Hollingsworth ; Sae Bañuelos Other Interventions: Discharge Summary Assessment (RN) Last Done: 11/24/20 18:32 Supervising Physician Co-Signing Physician Notes Resident Physician Supervision Note: I independently interviewed and examined the patient and verified the matamoros history and physical, reviewed labs and image studies and agree with resident Dr. Sagastume findings and care plan. Resident Activity Tracking Resident Involvement: Resident Care Provided Care Provided: Adult Hospital Medicine
--- NOTE | 2020-11-26 15:57 | Electrocardiogram Report ---
Test Reason : Blood Pressure : / mmHG Vent. Rate : 064 BPM Atrial Rate : 064 BPM P-R Int : 136 ms QRS Dur : 076 ms QT Int : 394 ms P-R-T Axes : 052 003 147 degrees QTc Int : 406 ms Poor data quality, interpretation may be adversely affected Normal sinus rhythm Possible Left atrial enlargement Left ventricular hypertrophy with repolarization abnormality Cannot rule out Septal infarct (cited on or before 23-NOV-2020) Abnormal ECG When compared with ECG of 16-NOV-2020 12:30, No significant change Confirmed by Emmett Osuna ([id number]) on 11/26/2020 3:56:52 PM Referred By: Iker Levy Confirmed By:Emmett Osuna
--- NOTE | 2020-11-26 16:01 | Electrocardiogram Report ---
Test Reason : Blood Pressure : / mmHG Vent. Rate : 056 BPM Atrial Rate : 056 BPM P-R Int : 140 ms QRS Dur : 086 ms QT Int : 438 ms P-R-T Axes : 058 003 146 degrees QTc Int : 422 ms Sinus bradycardia Possible Left atrial enlargement Left ventricular hypertrophy with repolarization abnormality Cannot rule out Septal infarct (cited on or before 23-NOV-2020) Abnormal ECG When compared with ECG of 23-NOV-2020 18:13, (unconfirmed) No significant change Confirmed by Emmett Osuna ([id number]) on 11/26/2020 4:01:36 PM Referred By: Iker Levy Confirmed By:Emmett Osuna
== END 2020-11-24 19:11 | disposition home or self-care (01) ==
LOC: ED 17:46 → 2N 20:10 → SUATTDRO 20:10 → INTOOBSV 20:10 → 2N 23:30 → 2S 11-24 12:42
DX: Z88.8 Allergy status to other drugs, medicaments and biological substances; Z79.899 Other long term (current) drug therapy; E78.5 Hyperlipidemia, unspecified; E11.9 Type 2 diabetes mellitus without complications; Z79.4 Long term (current) use of insulin; J44.9 Chronic obstructive pulmonary disease, unspecified; Z88.5 Allergy status to narcotic agent; I10 Essential (primary) hypertension; I25.110 Atherosclerotic heart disease of native coronary artery with unstable angina pectoris

== ENCOUNTER 2021-07-07 10:57 | Observation (INO) ==
[2021-07-07] MEDS ORDERED: SODIUM CHLORIDE 0.9% 1000ML 1,000 ML IV STA (11:18)
[2021-07-07] MEDS ORDERED: NITROGLYCERIN SL 0.4 MG/TAB TAB SL PRN ×2 (11:18→17:25)
[2021-07-07] MEDS ORDERED: ONDANSETRON INJ 2 MG/ML 2 ML VIAL IV STA (11:18)
[2021-07-07] MEDS ORDERED: ASPIRIN CHEW 324 MG PO STA (11:18)
--- NOTE | 2021-07-07 11:22 | Emergency Department Note ---
History of Present Illness General Chief Complaint: Referred by Doctor Stated Complaint: CHEST PAIN, LIGHTHEADED, DR LATHAM CALLED Time Seen by Provider: 07/07/21 11:09 History of Present Illness Provider Complaint: chest pain Onset (ago): day(s) 1 Duration: now resolved Onset: during rest Pain Location: substernal and epigastric Pain Radiation: none Severity: moderate Maximum Pain Intensity: 4 Current Pain Intensity: 4 Quality: + tightness, + aching, + sharp and + dull Relieved By: + nothing Exacerbated By: + nothing Context: no recent surgery, no recent immobilization, no recent travel, no trauma/injury or no history of DVT/PE Associated symptoms: + nausea, + vomiting and + dyspnea; no diaphoresis, no fever, no cough or no leg swelling near syncope and diarrhea. No melena hematochezia hematemesis bilious vomiting or coffee-ground emesis. Home Medications Medication Instructions Recorded Confirmed Type insulin glargine 100 unit/mL (3 30 unit SUBCUT QAM 10/26/20 03/17/21 History mL) subcutaneous pen (Basaglar KwikPen U-100 Insulin) montelukast 10 mg tablet 10 mg PO QAM 10/26/20 03/17/21 History (Singulair) pantoprazole 40 mg tablet,delayed 40 mg PO QAM 10/26/20 03/17/21 History release (Protonix) ondansetron 4 mg disintegrating 4 mg PO Q8H PRN 11/12/20 03/17/21 History tablet aspirin 81 mg chewable tablet 81 mg PO QAM 12/03/20 03/17/21 History insulin aspart U-100 100 unit/mL 18 unit SUBCUT UD ml 12/27/20 03/17/21 History (3 mL) subcutaneous pen (Novolog Flexpen U-100 Insulin aspart) isosorbide mononitrate 60 mg 60 mg PO DAILY #30 tab 12/27/20 03/17/21 Rx tablet,extended release 24 hr metoprolol succinate 50 mg 75 mg PO DAILY #45 tab 12/29/20 03/17/21 Rx tablet,extended release 24 hr hydrocortisone 2.5 % topical cream [address] BID #30 g 02/11/21 02/11/21 Rx with perineal applicator (Anusol-HC) sennosides 8.6 mg-docusate sodium 1 tab-cap PO QAM #90 tab 02/21/21 03/17/21 Rx 50 mg tablet (Colace 2-In-1) atorvastatin 40 mg tablet 40 mg PO .COMPLEX #30 tab 03/31/21 03/31/21 Rx diltiazem HCl 240 mg 240 mg PO DAILY #90 cap 05/30/21 Rx capsule,extended release 24 hr Allergies Allergy/AdvReac Type Severity Reaction Status Date / Time lisinopril AdvReac Intermediate Cough,bronc Verified 03/17/21 13:26 hospasm oxycodone [From Percocet] AdvReac Unknown Nausea Verified 03/17/21 13:26 Past Med/Surg History Medical History Acid reflux Asthma CONTROLLED Bronchial spasms HX , NONE IN LONG TIME CAD (coronary artery disease) Carotid stenosis COPD (chronic obstructive pulmonary disease) CONTROLLED Diabetes type 2, controlled Dyslipidemia GERD with esophagitis History of anesthesia reaction after last EGD pt had severe hypertension and was transfered to the ER from the GI department--pt states she ended up having a heart cath (neg) and then was placed on BP meds--no other issues with anesthesia noted History of colon polyps History of depression History of high blood pressure IBS (irritable bowel syndrome) Nausea after anesthesia Unstable angina Surgical History History of bladder surgery BLADDER TAC History of cardiac cath (~11/23/20) @ [facility] d/t angina--no stents History of cataract surgery BOTH EYES History of colonoscopy History of elbow surgery History of esophagogastroduodenoscopy (EGD) History of eye surgery LENSE IMPLANTS - BOTH EYES, MOST RECENT - LEFT, FEW WEEKS AGO - HEALING History of hysterectomy Family History Mother Family history of diabetes mellitus Father Family history of diabetes mellitus Brother Family history of diabetes mellitus Brother Family history of diabetes mellitus Sister Family history of diabetes mellitus Sister Family history of diabetes mellitus Social History Smoking Status: Never smoker Second Hand Exposure: No; Hx Alcohol Use: No Hx Substance Use: No Preferred Language: Angolan 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 Ability: Effective Manager Summer Required: No Beliefs That Will Affect Care: None and Anabaptist Anabaptist Beliefs: ALEVISM Current Living Situation: Spouse and Family Current Living Situation Comment: Home with and granddaughter Feels Safe at Home: Yes Assistive Devices: None Review of Systems A total of 10 systems reviewed and were otherwise negative Physical Exam Vital Signs Vital Signs - 24 hr 07/07/21 11:06 07/07/21 11:19 07/07/21 11:56 Temperature 36.5 C Temperature Source Temporal Artery Scan Pulse Rate 94 H 77 Pulse Rate [Apical] 70 Respiratory Rate 18 24 22 Respiratory Effort / Characteristics Non-Labored Non-Labored Spontaneous Respiratory Depth Normal Normal Blood Pressure 233/107 H Blood Pressure [Right Arm] 149/52 H Blood Pressure Mean 149 Blood Pressure Mean [Right Arm] 84 Pulse Oximetry 99 95 94 Oxygen Delivery Method Room Air Room Air Room Air Sepsis Recent Fever Within 48 Hours No Sepsis New/Unexplained Change in Mental Status No Sepsis Action Taken by Nursing No Action Required 07/07/21 13:00 Temperature Temperature Source Pulse Rate Pulse Rate [Apical] 73 Respiratory Rate 12 Respiratory Effort / Characteristics Non-Labored Spontaneous Respiratory Depth Normal Blood Pressure Blood Pressure [Right Arm] 168/73 H Blood Pressure Mean Blood Pressure Mean [Right Arm] 104 Pulse Oximetry 96 Oxygen Delivery Method Room Air Sepsis Recent Fever Within 48 Hours Sepsis New/Unexplained Change in Mental Status Sepsis Action Taken by Nursing Physical Exam GENERAL: She is oriented to person, place, and time. She appears well-developed and well-nourished. She does not appear distressed. HENT: Exam performed. -Head: Normocephalic and atraumatic. -Right Ear: External ear normal. No mastoid tenderness. -Left Ear: External ear normal. No mastoid tenderness. -Mouth/Throat: The oropharynx is clear and moist. No trismus in the jaw. No dental abscesses or uvula swelling. No oropharyngeal exudate or tonsillar abscesses. EYES: Conjunctivae and EOM are normal. Pupils are equal, round, and reactive to light. Right eye exhibits no discharge. Left eye exhibits no discharge. No scleral icterus. NECK: Normal range of motion. Neck supple. No JVD present. No spinous process tenderness present. No carotid bruit present. No rigidity. No tracheal deviation and normal range of motion present. No Brudzinski's sign and no Kernig's sign noted. CV: Normal rate, regular rhythm, normal heart sounds and intact distal pulses. There is no peripheral edema. Palpable radial pulses bue. PULM/CHEST: Effort normal and breath sounds normal. No respiratory distress. No stridor. She has no wheezes. She has no rales. -Chest Wall: She exhibits no tenderness. ABD: The abdomen is soft. Bowel sounds are normal. She has no distension. No mass is present. There is no tenderness. There is no rebound, no guarding, no Zavala's sign and no tenderness at McBurney's point. Rovsig negative MUSC/SKEL: Normal range of motion. There is no peripheral edema, tenderness or deformity. LYMPH: No cervical adenopathy. NEURO: She is alert and oriented to person, place, and time. She has normal strength. No cranial nerve deficit or sensory deficit. Coordination and gait normal. GCS eye subscore is 4. GCS verbal subscore is 5. GCS motor subscore is 6. Cerebellar tests wnl. SKIN: Skin is warm and dry. She is not diaphoretic. PSYCH: She has a normal mood and affect. Behavior is normal. Judgment and thought content normal. Course Course 1109: The patient was evaluated in room B7. A complete history and physical exam was performed Cardiac monitoring: An order was placed for continuous cardiac monitoring. The monitor shows a rate of 90 with sinus rhythm 1418: Vital signs stable. Labs within normal limits with exception of elevated D-dimer. CTA of the chest and CT of the abdomen within normal limits. Patient states her chest pain got better after sublingual nitroglycerin and would like to be admitted to the hospital for observation when given the option between that and outpatient follow-up. Patient will be admitted to the [facility] hospitalist team. Administered Medications Nitroglycerin (Nitroglycerin Sl 0.4 Mg/Tab Tab) 0.4 mg SL UD PRN PRN Reason: Chest Pain Stop: 08/06/21 11:17 Last Admin: 07/07/21 11:40 Dose: 0.4 mg Documented by: [id number] Discontinued Medications Aspirin (Aspirin Chew 324 Mg) 324 mg PO NOW STA Stop: 07/07/21 11:19 Last Admin: 07/07/21 11:40 Dose: 324 mg Documented by: [id number] Sodium Chloride (Nss 1000ml) 1,000 mls @ 999 mls/hr IV .Q1H1M STA Stop: 07/07/21 12:18 Last Infusion: 07/07/21 12:46 Dose: 0 mls/hr Documented by: [id number] Admin: 07/07/21 11:42 Dose: 999 mls/hr Documented by: [id number] Ioversol (Optiray 320 125ml) 120 ml IV ONCE ONE Stop: 07/07/21 13:19 Last Admin: 07/07/21 13:20 Dose: 120 ml Documented by: [id number] Ondansetron HCl (Ondansetron Inj 2 Mg/Ml 2 Ml Vial) 4 mg IV NOW STA Stop: 07/07/21 11:19 Last Admin: 07/07/21 11:40 Dose: 4 mg Documented by: [id number] Medical Decision Making Laboratory Data Result diagrams: 07/07/21 11:42 07/07/21 11:42 Labs: Lab Results 07/07/21 07/07/21 07/07/21 Range/Units 11:42 11:42 11:42 WBC 8.07 (4.8-10.8) K/uL RBC 4.50 (4.2-5.4) M/uL Hgb 11.1 L (12.0-16.0) g/dL Hct 35.9 L (37-47) % MCV 79.8 L (80-100) fL MCH 24.7 L (25-34) pg MCHC 30.9 L (32-36) g/dL RDW Std Deviation 44.9 (36.4-46.3) fL RDW Coeff of Rolando 15.5 H (11.5-14.5) % Plt Count 181 (130-400) K/uL MPV 10.2 (7.4-10.4) fL Immature Gran % (Auto) 0.2 % Neut % (Auto) 91.3 % Lymph % (Auto) 4.2 % Kenedy % (Auto) 3.5 % Eos % (Auto) 0.7 % Baso % (Auto) 0.1 % Neut # (Auto) 7.36 H (1.4-6.5) K/uL Lymph # (Auto) 0.34 L (1.2-3.4) K/uL Kenedy # (Auto) 0.28 (0.11-0.59) K/uL Eos # (Auto) 0.06 (0-0.5) K/uL Baso # (Auto) 0.01 (0-0.2) K/uL Immature Gran # (Auto) 0.02 (0.00-0.02) K/uL PT 11.0 (9.0-12.0) Seconds INR 1.0 (0.9-1.1) APTT 24.5 (21.0-31.0) Seconds PTT Ratio 0.9 D-Dimer 540 H* (0-500) ug/L FEU Sodium 137 (136-145) mmol/L Potassium 4.3 (3.5-5.1) mmol/L Chloride 106 (98-107) mmol/L Carbon Dioxide 23 (21-32) mmol/L Anion Gap 8 (3-11) BUN 19 (6-23) mg/dl Creatinine 0.80 (0.6-1.2) mg/dl Est Cr Clr Drug Dosing 73.9 ml/min Est GFR ( Amer) 87.2 ml/min Est GFR (Non-Af Amer) 75.2 ml/min BUN/Creatinine Ratio 23.8 H (10-20) Glucose 291 H (70-99(Fasting)) mg/dl Calcium 8.6 (8.5-10.1) mg/dl Total Bilirubin 0.5 (0.2-1.0) mg/dl AST 10 L (13-39) U/L ALT 15 (7-52) U/L Alkaline Phosphatase 66 (34-104) U/L Troponin I < 0.03 (0-0.04) ng/ml Total Protein 6.8 (6.0-8.3) gm/dl Albumin 3.9 (3.4-5.0) gm/dl Globulin 2.9 (2.5-4.0) gm/dl Albumin/Globulin Ratio 1.3 (0.9-2) Lipase 21 (11-82) U/L Imaging Data Chest x-ray: Radiologist's impression: SINGLE VIEW CHEST CLINICAL HISTORY: Atypical chest pain. FINDINGS: An AP, portable, upright chest radiograph is compared to study dated 05/05/2021. The cardiomediastinal silhouette is unremarkable noting atherosclerotic calcification of the thoracic aorta. The lungs and pleural sp aces are clear. No pneumothorax is seen. The skeletal structures appear osteopenic. The bony thorax is grossly intact. IMPRESSION: No active disease in the chest. ACT 112: Negative or not required by law. Electronically signed by: Clyde Thompson M.D. 07/07/2021 11:54 AM Dictated:07/07/21 1154 Transcribed: 07/07/[address] scan - abdomen: Radiologist's impression: CT SCAN OF THE ABDOMEN AND PELVIS WITH IV CONTRAST CLINICAL HISTORY: Epigastric abdominal pain. Nausea and vomiting. COMPARISON STUDY: Abdominal CT dated 10/26/2020 TECHNIQUE: Following the IV administration of 120 cc of Optiray 320, CT scan of the abdomen and pelvis is performed from the lung bases to the proximal femora. Images are reviewed in the axial, sagittal, and coronal planes. IV contrast was administered without complication. A dose lowering technique was utilized adhering to the principles of ALARA. CT DOSE: 1100.42 mGy.cm FINDINGS: Lung bases: The heart is normal in size and without pericardial effusion. The lung bases are clear noting mild bibasilar atelectasis. There is a tiny hiatal hernia. Liver: The contrast-enhanced liver is normal in size, contour, and attenuation. There is no intrahepatic biliary ductal dilatation. The hepatic veins and portal veins are patent. Gallbladder: Contracted. Spleen: Normal in size and attenuation. Pancreas: Unremarkable. Adrenal glands: Unremarkable. Kidneys: The contrast enhanced kidneys are normal in size and without hydr onephrosis. The kidneys enhance symmetrically. Abdominal vasculature: The abdominal aorta is normal in course and caliber noting mild atherosclerotic calcification. Bowel: There are scattered colonic diverticula without CT evidence of acute diverticulitis. No bowel obstruction is identified. The cecum is located in the left lower quadrant. The appendix is well-visualized and normal. Peritoneum: There is no intraperitoneal free air or abdominal ascites. There is a small fat-containing umbilical hernia. Lymphadenopathy: None. Pelvic viscera: The bladder is normal as visualized. The uterus is surgically absent. No adnexal lesion is seen. Skeletal structures: There is mild lumbosacral spondylosis. No lytic or blastic lesions are seen. IMPRESSION: No acute infectious or inflammatory findings are identified in the abdomen or pelvis. ACT 112: Negative or not required by law. Electronically signed by: Clyde Thompson M.D. 07/07/2021 1:59 PM Dictated:07/07/21 1340 Transcribed: 07/07/[address] scan - chest: Radiologist's impression: CT ANGIOGRAPHY OF THE CHEST, PULMONARY EMBOLUS PROTOCOL CLINICAL HISTORY: Shortness of breath. Chest pain. COMPARISON STUDY: Chest radiograph May 05, 2021 and July 07, 2021. TECHNIQUE: Following IV administration of 120 mL of Optiray, helical axial images of the chest were obtained utilizing the pulmonary embolus protocol. Maximal intensity projections and sagittal and coronal reformats were viewed on an independent 3D workstation. IV contrast was administered without complication. Automated exposure control was utilized for the study. A dose lowering technique was utilized adhering to the principles of ALARA. FINDINGS: No pulmonary emboli are identified. There is no thoracic aortic dissection. No pericardial effusion is present. There is moderate coronary artery calcification and borderline cardiomegaly. Tiny hiatal hernia is present. No pneumothorax or pleural effusion is present. No consolidation to suggest pneumonia. Subpleural groundglass opacities favor atelectasis. Central airways are patent. No acute fracture or suspicious lesion within the visualized bony thorax. Abdomen and pelvis will be reported separately. IMPRESSION: 1. No pulmonary emboli identified. 2. No acute process within the chest. ACT 112: Negative or not required by law. Electronically signed by: Presley Bear M.D. 07/07/2021 1:40 PM Dictated:07/07/211332 Transcribed: 07/07/211332 ECG Data Indication: chest pain Rate (beats per minute): 78 Rhythm: normal sinus Findings: + T-wave inversion (aVL only); no ST depression, no ST elevation or no prolonged QT Comparison ECG Date: from (Oct 2020) Change: no significant change MDM Narrative Vital signs stable. Labs within normal limits with exception of elevated D-dime r. CTA of the chest and CT of the abdomen within normal limits. Patient states her chest pain got better after sublingual nitroglycerin and would like to be admitted to the hospital for observation when given the option between that and outpatient follow-up. Patient will be admitted to the [facility] hospitalist team. Impression & Plan Chest pain Discharge Plan Visit Data Chief Complaint: Referred by Doctor Stated Complaint: CHEST PAIN, LIGHTHEADED, DR LATHAM CALLED ED Provider: Dexter Darling Discharge Problem: Chest pain Patient Disposition: Being Evaluated by Hospitalist Forms Stand Alone Forms: My [facility] Prescriptions Prescriptions: No Action metoprolol succinate 50 mg tablet extended release 24 hr 75 mg PO DAILY Qty: 45 RF: 11 sennosides-docusate sodium [Colace 2-In-1] 8.6-50 mg tablet 1 tab-cap PO QAM Qty: 90 RF: 3 diltiazem HCl 240 mg capsule,extended release 24hr 240 mg PO DAILY Qty: 90 RF: 3 atorvastatin 40 mg tablet 40 mg PO .COMPLEX Qty: 30 RF: 11 aspirin 81 mg tablet,chewable 81 mg PO QAM RF: 0 hydrocortisone [Anusol-HC] 2.5 % cream with perineal applicator [address] BID Qty: 30 RF: 1 isosorbide mononitrate 60 mg tablet extended release 24 hr 60 mg PO DAILY Qty: 30 RF: 11 pantoprazole [Protonix] 40 mg tablet,delayed release (DR/EC) 40 mg PO QAM RF: 0 Basaglar KwikPen U-100 Insulin 100 unit/mL (3 mL) insulin pen 30 unit SUBCUT QAM RF: 0 montelukast [Singulair] 10 mg Tablet 10 mg PO QAM RF: 0 insulin aspart U-100 [Novolog Flexpen U-100 Insulin] 100 unit/mL (3 mL) insulin pen 18 unit subcut UD RF: 0 ondansetron 4 mg tablet,disintegrating 4 mg PO Q8H PRN (Reason: nausea and vomiting) RF: 0 Referrals Referrals: Sae Latham MD [Primary Care Provider] - Discharge Problem: Chest pain Qualifiers: Chest pain type: unspecified Qualified Code(s): R07.9 - Chest pain, unspecified
--- NOTE | 2021-07-07 11:55 | XRay Report ---
SINGLE VIEW CHEST CLINICAL HISTORY: Atypical chest pain. FINDINGS: An AP, portable, upright chest radiograph is compared to study dated 05/05/2021. The cardiome diastinal silhouette is unremarkable noting atherosclerotic calcification of the thoracic aorta. The lungs and pleural spaces are clear. No pneumothorax is seen. The skeletal structures appear osteopeni c. The bony thorax is grossly intact. IMPRESSION: No active disease in the chest. ACT 112: Negative or not required by law. Electronically signed by: Clyde Thompson M.D. 07/07/2021 11:54 AM
[2021-07-07 12:00] LABS: Basophils # (auto) 0.01 K/uL (0-0.2); Basophils % (auto) 0.1 %; Eosinophils # (auto) 0.06 K/uL (0-0.5); Eosinophils % (auto) 0.7 %; Hematocrit (blood only) 35.9 % (37-47); Hemoglobin 11.1 g/dL (12.0-16.0); Immature Granulocytes # (auto) 0.02 K/uL (0.00-0.02); Immature Granulocytes % (auto) 0.2 %; Lymphocytes # (auto) 0.34 K/uL (1.2-3.4); Lymphocytes % (auto) 4.2 %; Mean Corpuscular Hemoglobin 24.7 pg (25-34); Mean Corpuscular Hgb Conc 30.9 g/dL (32-36); Mean Corpuscular Volume 79.8 fL (80-100); Mean Platelet Volume 10.2 fL (7.4-10.4); Monocytes # (auto) 0.28 K/uL (0.11-0.59); Monocytes % (auto) 3.5 %; Neutrophils # (auto) 7.36 K/uL (1.4-6.5); Neutrophils % (auto) 91.3 %; Platelet Count 181 K/uL (130-400); RDW Coefficient of Variation 15.5 % (11.5-14.5); RDW Standard Deviation 44.9 fL (36.4-46.3); White Blood Count 8.07 K/uL (4.8-10.8)
[2021-07-07 12:11] LABS: Partial Thromboplastin Ratio 0.9; Partial Thromboplastin Time 24.5 Seconds (21.0-31.0)
[2021-07-07 12:28] LABS: Alanine Aminotransferase 15 U/L (7-52); Albumin Globulin Ratio 1.3 (0.9-2); Albumin Level 3.9 gm/dl (3.4-5.0); Alkaline Phosphatase 66 U/L (34-104); Anion Gap 8 (3-11); Aspartate Aminotransferase 10 U/L (13-39); BUN Creatinine Ratio 23.8 (10-20); Bilirubin,Total 0.5 mg/dl (0.2-1.0); Blood Urea Nitrogen 19 mg/dl (6-23); Calcium 8.6 mg/dl (8.5-10.1); Carbon Dioxide 23 mmol/L (21-32); Chloride 106 mmol/L (98-107); Creatinine Clr Calc Pharmacy 73.9 ml/min; Est GFR (African American) 87.2 ml/min; Est GFR (Non-African American) 75.2 ml/min; Globulin 2.9 gm/dl (2.5-4.0); Glucose 291 mg/dl (70-99(Fasting)); Lipase 21 U/L (11-82); Potassium 4.3 mmol/L (3.5-5.1); Sodium 137 mmol/L (136-145); Total Protein 6.8 gm/dl (6.0-8.3); Troponin I < 0.03 ng/ml (0-0.04)
[2021-07-07 12:32] LABS: D Dimer 540 ug/L FEU (0-500)
[2021-07-07] MEDS ORDERED: OPTIRAY 320 125ml IV ONE (13:18)
--- NOTE | 2021-07-07 13:42 | CT Scan Report ---
CT ANGIOGRAPHY OF THE CHEST, PULMONARY EMBOLUS PROTOCOL CLINICAL HISTORY: Shortness of breath. Chest pain. COMPARISON STUDY: Chest radiograph May 05, 2021 and July 07, 2021. TECHNIQUE: Following IV administration of 120 mL of Optiray, helical axial images of the chest were o btained utilizing the pulmonary embolus protocol. Maximal intensity projections and sagittal and cor onal reformats were viewed on an independent 3D workstation. IV contrast was administered without co mplication. Automated exposure control was utilized for the study. A dose lowering technique was ut ilized adhering to the principles of ALARA. FINDINGS: No pulmonary emboli are identified. There is no thoracic aortic dissection. No pericardial effusion is present. There is moderate coronary artery calcification and borderline cardiomegaly. Ti ny hiatal hernia is present. No pneumothorax or pleural effusion is present. No consolidation to sugg est pneumonia. Subpleural groundglass opacities favor atelectasis. Central airways are patent. No acu te fracture or suspicious lesion within the visualized bony thorax. Abdomen and pelvis will be report ed separately. IMPRESSION: 1. No pulmonary emboli identified. 2. No acute process within the chest. ACT 112: Negative or not required by law. Electronically signed by: Presley Bear M.D. 07/07/2021 1:40 PM
--- NOTE | 2021-07-07 14:00 | CT Scan Report ---
CT SCAN OF THE ABDOMEN AND PELVIS WITH IV CONTRAST CLINICAL HISTORY: Epigastric abdominal pain. Nausea and vomiting. COMPARISON STUDY: Abdominal CT dated 10/26/2020 TECHNIQUE: Following the IV administration of 120 cc of Optiray 320, CT scan of the abdomen and pelv is is performed from the lung bases to the proximal femora. Images are reviewed in the axial, sagitta l, and coronal planes. IV contrast was administered without complication. A dose lowering technique w as utilized adhering to the principles of ALARA. CT DOSE: 1100.42 mGy.cm FINDINGS: Lung bases: The heart is normal in size and without pericardial effusion. The lung bases are clear no ting mild bibasilar atelectasis. There is a tiny hiatal hernia. Liver: The contrast-enhanced liver is normal in size, contour, and attenuation. There is no intrahepa tic biliary ductal dilatation. The hepatic veins and portal veins are patent. Gallbladder: Contracted. Spleen: Normal in size and attenuation. Pancreas: Unremarkable. Adrenal glands: Unremarkable. Kidneys: The contrast enhanced kidneys are normal in size and without hydronephrosis. The kidneys enh ance symmetrically. Abdominal vasculature: The abdominal aorta is normal in course and caliber noting mild atheroscleroti c calcification. Bowel: There are scattered colonic diverticula without CT evidence of acute diverticulitis. No bowel obstruction is identified. The cecum is located in the left lower quadrant. The appendix is well-vis ualized and normal. Peritoneum: There is no intraperitoneal free air or abdominal ascites. There is a small fat-containin g umbilical hernia. Lymphadenopathy: None. Pelvic viscera: The bladder is normal as visualized. The uterus is surgically absent. No adnexal lesi on is seen. Skeletal structures: There is mild lumbosacral spondylosis. No lytic or blastic lesions are seen. IMPRESSION: No acute infectious or inflammatory findings are identified in the abdomen or pelvis. ACT 112: Negative or not required by law. Electronically signed by: Clyde Thompson M.D. 07/07/2021 1:59 PM
--- NOTE | 2021-07-07 14:10 | Electrocardiogram Report ---
Test Reason : Blood Pressure : / mmHG Vent. Rate : 078 BPM Atrial Rate : 078 BPM P-R Int : 130 ms QRS Dur : 082 ms QT Int : 382 ms P-R-T Axes : 066 017 117 degrees QTc Int : 435 ms Normal sinus rhythm with sinus arrhythmia Left atrial enlargement Left ventricular hypertrophy with repolarization abnormality Abnormal ECG When compared with ECG of 24-NOV-2020 06:27, Sinus rhythm has replaced Ectopic atrial rhythm Confirmed by Roney Willis ([id number]) on 07/07/2021 2:09:59 PM Referred By: Confirmed By:Roney Willis
--- NOTE | 2021-07-07 14:39 | History & Physical Report ---
Date of Service July 07, 2021 Assessment & Plan (1) Chest pain: Plan: 71 yo female with 2 week history of typical chest pain. However, patient did have a cardiac cath completed last year. Could symptoms be esophageal spasms. Consult cardiology. appreciate input will check trop q8h will place on heparin drip. if trops remain negative, can discontinue heparin drip. resume asa/statin/diltiazem plan for cardiac stress test in AM (2) CAD (coronary artery disease): Plan: Cath completed in summer Showed Stenosis in a small branch of LAD. treated with CCB. continue with isosorbide, BB, ASA. (3) Diabetes type 2, controlled: Plan: glycemic control will check A1C. (4) GERD with esophagitis: Plan: continue PPI. (5) Dyslipidemia: Plan: continue statin full code DVT: heparin drip. History of Present Illness Chief Complaint: chest pain Primary Care Provider: Sae Wilkes MD 71 yo female with diabetes, hypertension presents to the hospital with chest pain which awoke her in the AM. She said the pain was pressure like in nature, 7/10 intensity, midsternum, radiating to the back, and left arm, accompanied by nausea, vomiting, and light headedness. D/W PCP and patient, patiet has also been complaining of chest pain with pressur e like chest pain that occurs on exertion and improves with rest for the past 2 weeks. Patient denies any palpitations, lower extremity edema. ROS noted below. Allergies Allergy/AdvReac Type Severity Reaction Status Date / Time lisinopril AdvReac Intermediate Cough,bronc Verified 07/07/21 14:38 hospasm oxycodone [From Percocet] AdvReac Unknown Nausea Verified 07/07/21 14:38 Home Medications Medication Instructions Recorded Confirmed Type insulin glargine 100 unit/mL (3 30 unit SUBCUT QAM 10/26/20 07/07/21 History mL) subcutaneous pen (Basaglar KwikPen U-100 Insulin) montelukast 10 mg tablet 10 mg PO QAM 10/26/20 07/07/21 History (Singulair) pantoprazole 40 mg tablet,delayed 40 mg PO QAM 10/26/20 07/07/21 History release (Protonix) aspirin 81 mg chewable tablet 81 mg PO QAM 12/03/20 07/07/21 History insulin aspart U-100 100 unit/mL 18 unit SUBCUT UD ml 12/27/20 07/07/21 History (3 mL) subcutaneous pen (Novolog Flexpen U-100 Insulin aspart) sennosides 8.6 mg-docusate sodium 1 tab-cap PO QAM #90 tab 02/21/21 07/07/21 Rx 50 mg tablet (Colace 2-In-1) atorvastatin 40 mg tablet 40 mg PO .COMPLEX #30 tab 03/31/21 07/07/21 Rx bromfenac 0.07 % eye drops 1 drp OPB QID 07/07/21 07/07/21 History (Prolensa) coQ10 (ubiquinol) 200 mg capsule 200 mg PO DAILY 07/07/21 07/07/21 History diltiazem HCl 240 mg 240 mg PO QAM 07/07/21 07/07/21 History capsule,extended release 24 hr isosorbide mononitrate 60 mg 60 mg PO QAM 07/07/21 07/07/21 History tablet,extended release 24 hr metoprolol succinate 50 mg 75 mg PO QAM 07/07/21 07/07/21 History tablet,extended release 24 hr Past Med/Surg History Medical History Acid reflux Asthma CONTROLLED Bronchial spasms HX , NONE IN LONG TIME CAD (coronary artery disease) Carotid stenosis COPD (chronic obstructive pulmonary disease) CONTROLLED Diabetes type 2, controlled Dyslipidemia GERD with esophagitis History of anesthesia reaction after last EGD pt had severe hypertension and was transfered to the ER from the GI department--pt states she ended up having a heart cath (neg) and then was placed on BP meds--no other issues with anesthesia noted History of colon polyps History of depression History of high blood pressure IBS (irritable bowel syndrome) Nausea after anesthesia Unstable angina Surgical History History of bladder surgery BLADDER TAC History of cardiac cath (~11/23/20) @ [facility] d/t angina--no stents History of cataract surgery BOTH EYES History of colonoscopy History of elbow surgery History of esophagogastroduodenoscopy (EGD) History of eye surgery LENSE IMPLANTS - BOTH EYES, MOST RECENT - LEFT, FEW WEEKS AGO - HEALING History of hysterectomy Family History Mother Family history of diabetes mellitus Father Family history of diabetes mellitus Brother Family history of diabetes mellitus Brother Family history of diabetes mellitus Sister Family history of diabetes mellitus Sister Family history of diabetes mellitus Social History Smoking Status: Never smoker Second Hand Exposure: No; Hx Alcohol Use: No Hx Substance Use: No Preferred Language: Icelandic 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 Ability: Effective Valve Lapper Required: No Beliefs That Will Affect Care: None Current Living Situation: Spouse Current Living Situation Comment: Home with and granddaughter Other Information That Helps Us Care for You: No Feels Safe at Home: Yes Safety Concerns: Feels Safe At This Time Assistive Devices: None Review of Systems Constitutional: no fever, no body aches and no weight loss Eyes: no blind spots and no diplopia Ear, Nose, Mouth, Throat: no ear pain and no tinnitus Respiratory: no cough and no dyspnea Cardiovascular: + chest pain, + chest pain with activity and + radiating jaw, neck or arm pain Gastrointestinal: + nausea and + vomiting; no abdominal pain Genitourinary: no dysuria Musculoskeletal: no back pain Integumentary: no acne Neurologic: + dizziness Psychiatric: no behavioral changes and no depression Endocrine: no fatigue Hematologic / Lymphatic: no easy bleeding Allergy / Immunological: no GI upset with certain foods Physical Exam Constitutional: WD/WN, vitals as above Eyes: PERRL, conjunctivae normal, anicteric sclerae ENMT: external ear and nose normal, oropharynx normal Respiratory: normal respiratory effort, lungs clear to auscultation Cardiovascular: RRR, no murmur, no edema Chest (Breasts): normal inspection/palpation of breasts Gastrointestinal (Abdomen): normal bowel sounds, soft, nontender, no hepatosplenomegaly Musculoskeletal: no cyanosis or clubbing, extremities motor strength 5/5 Skin: no rashes, warm and dry Neurologic: PERRL, EOMI, accommodation nl, no face palsy, no dysarthria Psychiatric: A+Ox3, euthymic affect Lymphatic: no cervical or axillary lymphadenopathy Results & Data Results & Data ([facility]) Vital Signs (Past 12 Hours) Vital Signs Temp Pulse Pulse Resp BP BP Pulse Ox 07/07/21 13:00 73 12 168/73 H 96 07/07/21 11:56 70 22 149/52 H 94 07/07/21 11:19 77 24 95 07/07/21 11:06 36.5 C 94 H 18 233/107 H 99 PG Care Time/CCT Total # of Minutes Spent Total Time Spent with Patient: Total time spent is greater than 50% in coordination of care (as documented) at patient's floor/unit and/or counseling patient: Coding Level of Care Code INT OBSERVATION CARE 72M LVL 3 Diagnoses CAD (coronary artery disease) I25.10 Diabetes type 2, controlled E11.9 GERD with esophagitis K21.00 Dyslipidemia E78.5 Chest pain R07.9 Chest pain type: unspecified (1) Chest pain Chest pain type: unspecified Qualified Code(s): R07.9 - Chest pain, unspecified
[2021-07-07] MEDS ORDERED: HEPARIN SODIUM/DEXTROSE 25,000 UNITS/500 ML BAG IV SCH (16:00)
--- NOTE | 2021-07-07 16:49 | Cardiology Consultation ---
Date of Consultation July 07, 2021 Assessment & Plan (1) Chest pain: (2) CAD (coronary artery disease): (3) GERD with esophagitis: (4) Left ventricular hypertrophy by electrocardiogram: 71-year-old woman with known branch vessel CAD (first diagonal, otherwise nonocclusive disease at cath October 2020) as well as known gastritis/esophagitis (endoscopy October 2020) now presents with moderate to severe chest discomfort but stable/nondynamic ECG and initially normal troponin. Although there is an element in her history of exertional symptoms, these are quite atypical in that they seem to last for half hour to several hours after any exertion. Also, she often has onset of symptoms at rest with significant epiphenomenon (headache, nausea and vomiting) with recurrence of the symptoms over many years, frequency of symptoms increased over the past year but stable over the past month. Of note, the patient states that she is under a great deal of emotional stress (responsible for a learning-disabled 9-year-old, had a stroke, multiple family members within the past year). Despite her known CAD and gastrointestinal disease, her current presentation is complex and does not fit neatly into either typical anginal or esophageal symptom patterns. Unlikely she is having an acute coronary event with ECG unchanged compared with prior and with negative troponin despite prolonged symptoms. However, in the absence of evidence for active GI bleeding, on the chance that this represents onset of acute coronary syndrome, reasonable to heparinize overnight. Initial BP was quite elevated, heart rate has been controlled. Continue diltiazem and metoprolol, would temporarily increase her isosorbide mononitrate from 60 mg daily to 60 mg twice daily (less messy than applying Nitropaste and will give her overnight dosing of nitrates). Could use as needed labetalol, hydralazine, or clonidine for any acute blood pressure spikes. Agree with continuing aspirin and statin with known coronary disease. If enzymes remain negative and ECG tomorrow remains benign, would suspect noncardiac cause and consider further GI evaluation. Given confusing presentation, once acute coronary syndrome is excluded, would be reasonable to pursue cardiac stress test at some point to better evaluate the extent/role/relevance of her branch vessel disease. Thank you for this consultation. History of Present Illness Reason for Consultation: Chest pain Requesting Physician: Don Trevino MD Attending Physician: Don Trevino MD History of Present Illness 71-year-old woman with branch vessel CAD (cath 2020 with D1-70% ostial/70-80% mi d stenosis, otherwise nonobstructive disease), gastritis/esophagitis on endoscopy 2020, and minor other medical problems who presents with chronically recurring chest pain and initially normal troponin and unremarkable ECG. In recent months at baseline she notes recurring anterior chest discomfort which often radiates to her posterior neck and left arm, sometimes associated with headache and nausea, occasionally to the point of vomiting (vomited last week and again today). She notes this commonly occurs when she walks along her lengthy driveway but can also occur at complete rest. She does not note a significant change in the frequency or severity of symptoms over the past month. Today, while seeing her [facility] primary care doctor she described 7/10 severity discomfort and was referred to the ER. Currently, she notes the pain is 4/10 severity, but she has no headache or nausea presently. Usually when the discomfort starts, it lasts for at least half an hour and often up to 4 hours, this includes the episodes when the pain onset was while walking along her driveway. Her chest discomfort is not positional or pleuritic. She denies any abdominal pain, subjective palpitations, presyncope, or syncope. No unusual dyspnea, orthopnea, PND, or leg edema. No fever or chills. She was mildly uncomfortable at the time of my evaluation. Allergies Allergy/AdvReac Type Severity Reaction Status Date / Time lisinopril AdvReac Intermediate Cough,bronc Verified 07/07/21 14:38 hospasm oxycodone [From Percocet] AdvReac Unknown Nausea Verified 07/07/21 14:38 Home Medications Medication Instructions Recorded Confirmed Type insulin glargine 100 unit/mL (3 30 unit SUBCUT QAM 10/26/20 07/07/21 History mL) subcutaneous pen (Basaglar KwikPen U-100 Insulin) montelukast 10 mg tablet 10 mg PO QAM 10/26/20 07/07/21 History (Singulair) pantoprazole 40 mg tablet,delayed 40 mg PO QAM 10/26/20 07/07/21 History release (Protonix) aspirin 81 mg chewable tablet 81 mg PO QAM 12/03/20 07/07/21 History insulin aspart U-100 100 unit/mL 18 unit SUBCUT UD ml 12/27/20 07/07/21 History (3 mL) subcutaneous pen (Novolog Flexpen U-100 Insulin aspart) sennosides 8.6 mg-docusate sodium 1 tab-cap PO QAM #90 tab 02/21/21 07/07/21 Rx 50 mg tablet (Colace 2-In-1) atorvastatin 40 mg tablet 40 mg PO .COMPLEX #30 tab 03/31/21 07/07/21 Rx bromfenac 0.07 % eye drops 1 drp OPB QID 07/07/21 07/07/21 History (Prolensa) coQ10 (ubiquinol) 200 mg capsule 200 mg PO DAILY 07/07/21 07/07/21 History diltiazem HCl 240 mg 240 mg PO QAM 07/07/21 07/07/21 History capsule,extended release 24 hr isosorbide mononitrate 60 mg 60 mg PO QAM 07/07/21 07/07/21 History tablet,extended release 24 hr metoprolol succinate 50 mg 75 mg PO QAM 07/07/21 07/07/21 History tablet,extended release 24 hr Patient History Medical History Acid reflux Asthma CONTROLLED Bronchial spasms HX , NONE IN LONG TIME CAD (coronary artery disease) Carotid stenosis COPD (chronic obstructive pulmonary disease) CONTROLLED Diabetes type 2, controlled Dyslipidemia GERD with esophagitis History of anesthesia reaction after last EGD pt had severe hypertension and was transfered to the ER from the GI department--pt states she ended up having a heart cath (neg) and then was placed on BP meds--no other issues with anesthesia noted History of colon polyps History of depression History of high blood pressure IBS (irritable bowel syndrome) Nausea after anesthesia Unstable angina Surgical History History of bladder surgery BLADDER TAC History of cardiac cath (~11/23/20) @ [facility] d/t angina--no stents History of cataract surgery BOTH EYES History of colonoscopy History of elbow surgery History of esophagogastroduodenoscopy (EGD) History of eye surgery LENSE IMPLANTS - BOTH EYES, MOST RECENT - LEFT, FEW WEEKS AGO - HEALING History of hysterectomy Family History Mother Family history of diabetes mellitus Father Family history of diabetes mellitus Brother Family history of diabetes mellitus Brother Family history of diabetes mellitus Sister Family history of diabetes mellitus Sister Family history of diabetes mellitus Social History Smoking Status: Never smoker Second Hand Exposure: No; Hx Alcohol Use: No Hx Substance Use: No Preferred Language: Azerbaijani 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 Ability: Effective Management Specialist Required: No Beliefs That Will Affect Care: None and Baptist Baptist Beliefs: SABIANIST Current Living Situation: Spouse and Family Current Living Situation Comment: Home with and granddaughter Feels Safe at Home: Yes Assistive Devices: None Physical Exam Physical Exam: Moderately obese adult white female appears mildly uncomfortable but not acutely distressed. Afebrile. Mildly hypertensive. Pulse 76 bpm and regular without ectopy. Skin: no ecchymoses or generalized lesions. HEENT: unremarkable. Neck: no JVD or carotid bruits. Lungs: clear. Cardiac: regular rhythm with 2/6 systolic ejection murmur right upper sternal border which is nonradiating, no diastolic murmur. Abdomen: Soft and nontender throughout. Extremities: no edema, peripheral pulses brisk. Neurologic: Anxious affect, normal conversation, nonfocal. Results & Data ([facility]) Vital Signs (Past 12 Hours) Vital Signs Temp Pulse Pulse Resp BP BP Pulse Ox 07/07/21 13:00 73 12 168/73 H 96 07/07/21 11:56 70 22 149/52 H 94 07/07/21 11:19 77 24 95 07/07/21 11:06 97.7 F 94 H 18 233/107 H 99 Laboratory Results Initial troponin less than 0.03. Normal electrolytes, BUN 19, creatinine 0.8. Hemoglobin 11.1 with normal white count and platelet count. Diagnostic Findings ECG showed sinus rhythm at 78 bpm, LVH with repolarization abnormality. Sinus rhythm had replaced ectopic atrial rhythm, otherwise unchanged compared with 11/24/2020 study. Echocardiogram October 2020 showed mild LVH, no regional wall motion abnormalities, EF greater than 70%, grade 1 diastolic dysfunction, no significant valvular disease, mild pulmonary hypertension. Chest x-ray and CT chest angiogram today were unremarkable. PG Care Time/CCT Total # of Minutes Spent Total Time Spent with Patient: Total time spent is greater than 50% in coordination of care (as documented) at patient's floor/unit and/or counseling patient: Coding Level of Care Code 28202 Inpt Consult Level 4 Diagnoses Chest pain R07.9 Chest pain type: unspecified CAD (coronary artery disease) I25.10 Left ventricular hypertrophy by electrocardiogram I51.7 GERD with esophagitis K21.00 (1) Chest pain Chest pain type: unspecified Qualified Code(s): R07.9 - Chest pain, unspecified
[2021-07-07] MEDS ORDERED: ONDANSETRON INJ 2 MG/ML 2 ML VIAL IV PRN (17:25)
[2021-07-07] MEDS ORDERED: MAGNESIUM HYDROXIDE SUSP 30 ML UDC PO PRN (17:25)
[2021-07-07] MEDS ORDERED: ACETAMINOPHEN 325 MG TAB PO PRN (17:25)
[2021-07-07] MEDS ORDERED: GLUCOSE 40% GEL 15 GM TUBE PO PRN (17:45)
[2021-07-07] MEDS ORDERED: DEXTROSE 50% 50 ML SYRINGE IV PRN (17:45)
[2021-07-07] MEDS ORDERED: GLUCOSE 10 TABS/TUBE PO PRN (17:45)
[2021-07-07] MEDS ORDERED: GLUCAGON FOR INJ 1 MG VIAL IM PRN (17:45)
[2021-07-07] MEDS ORDERED: CARBOHYDRATES FOR HYPOGLYCEMIA PO PRN (17:45)
[2021-07-07] MEDS ORDERED: LABETALOL HCL IV 5 MG/ML 20ML IV PRN (18:00)
[2021-07-07] MEDS: Heparin IV Adult Wt-Based Standard *NO* Bolus Protocol IV SCH ×3 (18:08→23:32)
[2021-07-07] MEDS: INSULIN ASPART PER UNIT SC SCH ×2 (18:21→20:45)
[2021-07-07] MEDS: PROCHLORPERAZINE 5 MG in SYRINGE 4 ML IV PRN (18:48)
[2021-07-07] MEDS ORDERED: PHARMACY GLYCEMIC MGMT CONSULT PRN (21:11)
[2021-07-07] MEDS: ISOSORBIDE MONO EXTENDED REL 60 MG TABCR PO SCH (22:00)
[2021-07-08] MEDS: INSULIN ASPART PER UNIT SC SCH ×6 (00:13→23:00)
[2021-07-08] MEDS: [UNRECOGNIZED DRUG - REMARK] SCH ×2 (00:54→09:01)
[2021-07-08 01:07] LABS: Partial Thromboplastin Ratio 1.8
[2021-07-08 01:08] LABS: Partial Thromboplastin Time 50.6 Seconds (21.0-31.0)
[2021-07-08 07:49] LABS: Basophils # (auto) 0.02 K/uL (0-0.2); Basophils % (auto) 0.4 %; Eosinophils # (auto) 0.02 K/uL (0-0.5); Eosinophils % (auto) 0.4 %; Hemoglobin 9.9 g/dL (12.0-16.0); Immature Granulocytes # (auto) 0.01 K/uL (0.00-0.02); Immature Granulocytes % (auto) 0.2 %; Lymphocytes # (auto) 0.78 K/uL (1.2-3.4); Lymphocytes % (auto) 17.4 %; Mean Corpuscular Hemoglobin 25.2 pg (25-34); Mean Corpuscular Hgb Conc 31.9 g/dL (32-36); Mean Corpuscular Volume 78.9 fL (80-100); Mean Platelet Volume 10.3 fL (7.4-10.4); Monocytes # (auto) 0.28 K/uL (0.11-0.59); Monocytes % (auto) 6.3 %; Neutrophils # (auto) 3.37 K/uL (1.4-6.5); Neutrophils % (auto) 75.3 %; Platelet Count 171 K/uL (130-400); RDW Coefficient of Variation 15.9 % (11.5-14.5); RDW Standard Deviation 45.7 fL (36.4-46.3); Red Blood Count 3.93 M/uL (4.2-5.4); White Blood Count 4.48 K/uL (4.8-10.8)
[2021-07-08 08:14] LABS: Albumin Globulin Ratio 1.4 (0.9-2); Albumin Level 3.4 gm/dl (3.4-5.0); BUN Creatinine Ratio 20.6 (10-20); Bilirubin Direct 0.1 mg/dl (0-0.2); Bilirubin,Total 0.4 mg/dl (0.2-1.0); Calcium 7.9 mg/dl (8.5-10.1); Chol HDL Ratio 3.3 (0-5); Creatinine Clr Calc Pharmacy 82.8 ml/min; Est GFR (African American) 103.4 ml/min; Est GFR (Non-African American) 89.2 ml/min; Globulin 2.5 gm/dl (2.5-4.0); Potassium 3.5 mmol/L (3.5-5.1); Total Protein 5.9 gm/dl (6.0-8.3)
[2021-07-08] MEDS: INSULIN GLARGINE SOLOSTAR 100 UNITS/ML 3 ML PEN SQ SCH (08:24)
--- NOTE | 2021-07-08 08:38 | Pharmacy Report ---
Pharmacy Glycemic Short Note 2 - Date of Service July 08, 2021 - Glycemic Short BSG Results (Last 24 hours): 07/07/21 07/07/21 07/07/21 11:42 18:17 20:43 Glucose 291 H POC Glucose 245 H 220 H 07/08/21 07/08/21 07/08/21 00:03 04:02 06:54 Glucose POC Glucose 184 H 188 H 187 H 07/08/21 07:09 Glucose 168 H POC Glucose OUTPATIENT ANTIDIABETIC REGIMEN: * Basaglar 30 units SC qAM * Novolog sliding scale * HbA1c % on 07/08/21 ASSESSMENT: * 71 yo F with T2DM admitted with chest pain. Pharmacy consulted for glycemic management for BSG's nearing 300 mg/dL * BSG's have trended down gradually with initiation of Novolog moderate stress estimate, now 187 mg/dL this AM * Heparin drip mixed in D5W currently running at 25 mL/hr * NPO status. OK to continue basal but will switch to Formulary alterative Lantus and reduce from home dose. Reduction less than 50% since BSG remains >180 mg/dL. Additional Lantus tonight if BSG remains >180 mg/dL PLAN FOR INPATIENT GLYCEMIC CONTROL: * Basal insulin * Lantus 15-20 units SQ qAM, based on BSG. Additional 10 units tonight if BSG > 180 mg/dL * Bolus insulin * NovoLog per scale ACHS or Q6hrs while NPO * Goal Range: Low 110 mg/dL - High 140 mg/dL * Correction Factor: 25 mg/dL/unit * Nutritional / Prandial insulin per carb ratio of 1 unit per 9 grams CHO consumed
[2021-07-08] MEDS ORDERED: NON-FORMULARY MEDICATION (Coq10 (Ubiquinol) 200 mg Capsule) PO SCH (09:00)
[2021-07-08] MEDS ORDERED: ISOSORBIDE MONO EXTENDED REL 60 MG TABCR PO SCH (09:00)
[2021-07-08] MEDS ORDERED: INSULIN GLARGINE SOLOSTAR 100 UNITS/ML 3 ML PEN SQ SCH ×2 (09:00→21:00)
[2021-07-08] MEDS: BROMFENAC OP SCH ×4 (09:10→20:13)
[2021-07-08 10:42] LABS: Estimated Average Glucose 237 mg/dl; Hemoglobin A1C 9.9 % (4.5-5.6)
--- NOTE | 2021-07-08 12:40 | XCELERA ---
[id number] \\[id number]_[id number]___[id number]
[2021-07-08] MEDS ORDERED: ATROPINE SULFATE 0.1 MG/ML 10ML SYR IV ONE (13:54)
[2021-07-08] MEDS ORDERED: METOPROLOL TARTRATE 1 MG/ML VIAL IV ONE (13:54)
[2021-07-08] MEDS ORDERED: DOBUTamine HCL 12.5 MG/ML 20 ML VIAL IV ONE (13:54)
--- NOTE | 2021-07-08 15:13 | Cardiology Progress Note ---
Date of Service July 08, 2021 Assessment & Plan (1) CAD (coronary artery disease): (2) Atypical chest pain: Plan: 1. Coronary disease: She has known coronary artery disease however it remains unclear if her presenting symptoms are due to that or not. 2. Chest discomfort: Her symptoms are somewhat atypical, although by her description they were reproduced with dobutamine infusion but she also had a lot of other symptoms such as nausea, her heart pounding in her head, etc. We did not reach target heart rate because her blood pressure was very high and she was feeling very poorly. However if ischemia was a cause of her symptoms then it should show up on the stress test. I would probably go by the echocardiographic images to determine whether she has significant ischemia or not. I think would be worth pursuing a GI evaluation as well. Admission and Anticipated Discharge Date Admission Date: July 07, 2021 Subjective She has had no further chest or GI symptoms at rest in her room. I did hold off on stress testing following her initial echocardiogram to make sure her blood count was stable, the stress test was performed this afternoon. We did convert the test to a dobutamine test because she did not feel she could walk on a treadmill. She was very uncomfortable during the dobutamine infusion, she had significant nausea and almost vomited but did not. She noted a pounding sensation in her head and also noted some chest tightness with the dobutamine infusion. Physical Exam Physical Exam: Constitutional: Alert, cooperative and in no distress. HEENT: Unremarkable Neck: No jugular venous distention, carotid pulses are normal and equal bilaterally without bruits. Pulmonary: Clear to auscultation bilaterally. Cardiac: Regular rhythm with no murmur, gallop or rub. Abdomen: Soft, nontender with normal bowel sounds. Extremities: No edema. Distal pulses intact. Neurologic: No focal findings. Gait was not tested. Skin: No rash, ecchymoses or petechiae. Results & Data ([facility]) Vital Signs (Past 12 Hours) Vital Signs Temp Pulse Pulse Resp BP Pulse Ox 07/08/21 07:45 36.6 C 78 16 140/54 L 94 07/08/21 06:58 77 07/08/21 02:48 36.4 C L 79 17 157/69 H 95 07/08/21 00:00 78 Laboratory Results Cardiac Enzymes 04/10/2107/08/21 07/08/21 Range/Units 16:59 00:18 07:09 AST 10 L (13-39) U/L Troponin I < 0.03 < 0.03 (0-0.04) ng/ml Coagulation 07/08/21 Range/Units 00:18 APTT 50.6 H* (21.0-31.0) Seconds Lipids 07/08/21 Range/Units 07:09 Triglycerides 96 (0-150) mg/dl Cholesterol 133 (0-200) mg/dl HDL Cholesterol 40 mg/dl Cholesterol/HDL Ratio 3.3 (0-5) CBC 07/08/21 07/08/21 Range/Units 07:09 12:13 WBC 4.48 L (4.8-10.8) K/uL RBC 3.93 L (4.2-5.4) M/uL Hgb 9.9 L 10.0 L (12.0-16.0) g/dL Hct 31.0 L (37-47) % Plt Count 171 (130-400) K/uL Neut # (Auto) 3.37 (1.4-6.5) K/uL Lymph # (Auto) 0.78 L (1.2-3.4) K/uL [place] # (Auto) 0.28 (0.11-0.59) K/uL Eos # (Auto) 0.02 (0-0.5) K/uL Baso # (Auto) 0.02 (0-0.2) K/uL Comprehensive Metabolic Panel 07/08/21 Range/Units 07:09 Sodium 137 (136-145) mmol/L Potassium 3.5 (3.5-5.1) mmol/L Chloride 106 (98-107) mmol/L Carbon Dioxide 24 (21-32) mmol/L BUN 14 (6-23) mg/dl Creatinine 0.68 (0.6-1.2) mg/dl Glucose 168 H (70-99(Fasting)) mg/dl Calcium 7.9 L (8.5-10.1) mg/dl Direct Bilirubin 0.1 (0-0.2) mg/dl AST 10 L (13-39) U/L ALT 12 (7-52) U/L Alkaline Phosphatase 52 (34-104) U/L Total Protein 5.9 L (6.0-8.3) gm/dl Albumin 3.4 (3.4-5.0) gm/dl Intake and Output 07/08/21 07/08/21 07/08/21 06:59 14:59 22:59 Intake Total 100 / 1127.083 306.25 / 306.25 Balance 100 / 1126.083 306.25 / 306.25 Intake: IV 306.25 / 306.25 Heparin Sodium/Dextrose 25,000 306.25 / 306.25 units In 500 ml @ 1,250 UNITS/ HR 25 mls/hr IV .Q20H [facility] Rx#: [id number] Oral 100 / 100 Other: Weight 89.3 kg Weight Measurement Method Built in [facility] Diagnostic Findings Telemetry: Sinus rhythm, rate 60 to 80 bpm. No significant arrhythmia. PG Care Time/CCT Total # of Minutes Spent Total Time Spent with Patient: Total time spent is greater than 50% in coordination of care (as documented) at patient's floor/unit and/or counseling patient: Coding Level of Care Code 45700 Subseq Hosp Care Lvl 2 Diagnoses CAD (coronary artery disease) I25.10 Atypical chest pain R07.89
[2021-07-08] MEDS: PROCHLORPERAZINE 5 MG in SYRINGE 4 ML IV PRN (15:29)
[2021-07-08] MEDS: DOCUSATE SODIUM/SENNA 50/8.6MG TAB PO SCH (15:34)
[2021-07-08] MEDS: ASPIRIN 81 MG ECTAB PO SCH (15:34)
[2021-07-08] MEDS: dilTIAZem HCL 240 MG CAPCR PO SCH (15:34)
[2021-07-08] MEDS: PANTOprazole 40 MG TAB PO SCH (15:35)
[2021-07-08] MEDS: MONTELUKAST SODIUM 10 MG TABLET PO SCH (15:35)
[2021-07-08] MEDS: METOPROLOL SUCC 25MG EXT REL TAB PO SCH (15:35)
[2021-07-08] MEDS: ISOSORBIDE MONO EXTENDED REL 60 MG TABCR PO SCH ×2 (15:35→20:12)
--- NOTE | 2021-07-08 16:21 | XCELERA ---
[id number]
--- NOTE | 2021-07-08 17:30 | Hospitalist Progress Note ---
Date of Service July 08, 2021 Assessment & Plan (1) Chest pain: Plan: 71 yo female with 2 week history of atypical chest pain. now proved to be non ischemic cardiac disease However, patient did have a cardiac cath completed last year. Consult cardiology recommended increase isosorbide, stress negative 07/08/21 resume asa/statin/diltiazem symptoms not cardiac ischemia, sensation of 'pounding" will monitor overnight to see if arrhythmia (2) CAD (coronary artery disease): Plan: Cath completed in summer Showed Stenosis in a small branch of LAD. treated with CCB. continue with isosorbide,increase dose, BB, ASA. (3) Diabetes type 2, controlled: Plan: glycemic control A1C.9.9 (4) GERD with esophagitis: Plan: continue PPI. (5) Dyslipidemia: Plan: continue statin full code DVT: heparin sc Admission and Anticipated Discharge Date Admission Date: July 07, 2021 Subjective She has had no further chest or GI symptoms at rest . Dobutamine stress echocardiogram was negative. She was very uncomfortable during the dobutamine infusion, she had significant nausea and almost vomited but did not. She noted a pounding sensation in her head and also noted some chest tightness with the dobutamine infusion. She states that she does have the pounding in her head at home at rest. 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 she claims to have extreme fatigue and had a uri in one week Review of Systems Review of Systems: Mild distress and fatigue pounding in head resolved no current headache, no visual changes no speech or swallowing issues no chest pain, pressure or palpitations no shortness of breath, cough or wheezes no abdominal pain, nausea or vomiting, diarrhea or constipation no dysuria, hematuria or frequency no focal joint pain or swelling no back pain, CVA tenderness or radicular pain no bruising, bleeding or rashes no focal signs of weakness or numbness or altered sensation no complaints of anxiety or depression.. Physical Exam Physical Exam: The patient appeared well nourished and normally developed. Vital signs as documented. Head exam is normocephalic atraumatic Neck is without JVD, thyromegaly, or carotid bruits. Lungs are clear to auscultation, no focal loss of breath sounds Cardiac exam, Rhythm is regular.. No murmurs, rubs or gallops. Abdominal exam reveals normal bowel sounds, soft non tender, no masses Extremities are nonedematous and both pedal pulses are present Neurologic exam is alert and oriented, no focal loss of strength or sensation Skin is without bruises or rashes Psychologically is without concerns for anxiety or depression.. Results & Data Results & Data ([facility]) Vital Signs (Past 12 Hours) Vital Signs Temp Pulse Pulse Resp BP Pulse Ox 07/08/21 17:00 98.8 F 73 16 149/60 H 96 07/08/21 15:15 98.1 F 63 16 154/63 H 96 07/08/21 12:06 98.4 F 71 22 149/68 H 95 07/08/21 07:45 97.9 F 78 16 140/54 L 94 07/08/21 06:58 77 PG Care Time/CCT Total # of Minutes Spent Total Time Spent with Patient: Total time spent is greater than 50% in coordination of care (as documented) at patient's floor/unit and/or counseling patient: Coding Level of Care Code 08095 Subseq Obs Care Lvl 2 Diagnoses Chest pain R07.9 Chest pain type: unspecified CAD (coronary artery disease) I25.10 Diabetes type 2, controlled E11.9 GERD with esophagitis K21.00 Dyslipidemia E78.5 (1) Chest pain Chest pain type: unspecified Qualified Code(s): R07.9 - Chest pain, unspecified
[2021-07-09] MEDS ORDERED: CALCIUM CARBONATE 500 MG CHEWABLE TAB PO ONE (04:57)
[2021-07-09] MEDS: INSULIN ASPART PER UNIT SC SCH ×2 (05:13→11:43)
[2021-07-09] MEDS: ISOSORBIDE MONO EXTENDED REL 60 MG TABCR PO SCH (07:47)
[2021-07-09] MEDS: ASPIRIN 81 MG ECTAB PO SCH (07:47)
[2021-07-09] MEDS: PANTOprazole 40 MG TAB PO SCH (07:47)
[2021-07-09] MEDS: METOPROLOL SUCC 25MG EXT REL TAB PO SCH (07:47)
[2021-07-09] MEDS: MONTELUKAST SODIUM 10 MG TABLET PO SCH (07:47)
[2021-07-09] MEDS: dilTIAZem HCL 240 MG CAPCR PO SCH (07:48)
[2021-07-09] MEDS: INSULIN GLARGINE SOLOSTAR 100 UNITS/ML 3 ML PEN SQ SCH (07:48)
[2021-07-09] MEDS: DOCUSATE SODIUM/SENNA 50/8.6MG TAB PO SCH (07:48)
[2021-07-09] MEDS: BROMFENAC OP SCH (08:02)
[2021-07-09 08:48] LABS: Hematocrit (blood only) 30.5 % (37-47); Hemoglobin 9.8 g/dL (12.0-16.0); Mean Corpuscular Hgb Conc 32.1 g/dL (32-36); Mean Corpuscular Volume 77.8 fL (80-100); Platelet Count 160 K/uL (130-400); RDW Coefficient of Variation 15.7 % (11.5-14.5); RDW Standard Deviation 44.6 fL (36.4-46.3); Red Blood Count 3.92 M/uL (4.2-5.4); White Blood Count 4.64 K/uL (4.8-10.8)
[2021-07-09] MEDS ORDERED: ATORVASTATIN 40 MG TAB PO SCH (09:00)
[2021-07-09 09:20] LABS: Est GFR (African American) 104.5 ml/min; Est GFR (Non-African American) 90.1 ml/min; Potassium 3.6 mmol/L (3.5-5.1)
[2021-07-09 09:21] LABS: BUN Creatinine Ratio 21.2 (10-20); Calcium 8.3 mg/dl (8.5-10.1); Creatinine Clr Calc Pharmacy 83.1 ml/min
[2021-07-09 12:15] LABS: Adenovirus F 40/41 PCR Not Detected (NotDetected); Astrovirus PCR Not Detected (NotDetected); Campylobacter PCR Not Detected (NotDetected); Clostridium diff Toxin A/B PCR Not Detected (NotDetected); Cryptosporidium PCR Not Detected (NotDetected); Cyclospora cayetanensis PCR Not Detected (NotDetected); Entamoeba histolytica PCR Not Detected (NotDetected); Enteroaggregative E.coli(EAEC) Not Detected (NotDetected); Enteropathogenic E.coli (EPEC) Not Detected (NotDetected); Enterotoxigenic E.coli (ETEC) Not Detected (NotDetected); Giardia lamblia PCR Not Detected (NotDetected); Plesiomonas shigelloides PCR Not Detected (NotDetected); Rotavirus A PCR Not Detected (NotDetected); Salmonella PCR Not Detected (NotDetected); Sapovirus PCR Not Detected (NotDetected); Shiga-like Toxin E.coli (STEC) Not Detected (NotDetected); Shigella/Enteroinvasive E.coli Not Detected (NotDetected); Vibrio cholerae PCR Not Detected (NotDetected); Vibrio species PCR Not Detected (NotDetected); Yersinia enterocolitica PCR Not Detected (NotDetected)
[2021-07-09 12:18] LABS: Norovirus GI/GII PCR DETECTED (NotDetected)
--- NOTE | 2021-07-09 13:19 | Electrocardiogram Report ---
Test Reason : Blood Pressure : / mmHG Vent. Rate : 061 BPM Atrial Rate : 061 BPM P-R Int : 140 ms QRS Dur : 086 ms QT Int : 414 ms P-R-T Axes : 066 009 114 degrees QTc Int : 416 ms Normal sinus rhythm T wave abnormality, consider lateral ischemia Abnormal ECG When compared with ECG of 07-JUL-2021 11:25, T wave inversion more evident in Lateral leads Confirmed by Emmett Osuna ([id number]) on 07/09/2021 1:18:50 PM Referred By: Sae Wilkes Confirmed By:Emmett Osuna
--- NOTE | 2021-07-09 13:59 | Discharge Summary ---
Date of Service July 09, 2021 Admission HPI Per Admitting Provider 71 yo female with diabetes, hypertension presents to the hospital with chest pain which awoke her in the AM. She said the pain was pressure like in nature, 7/10 intensity, midsternum, radiating to the back, and left arm, accompanied by nausea, vomiting, and light headedness. D/W PCP and patient, niels has also been complaining of chest pain with pressure like chest pain that occurs on exertion and improves with rest for the past 2 weeks. Patient denies any palpitations, lower extremity edema. ROS noted below. Principal Diagnosis chest pain with stress test without acute changes norovirus enteritis Discharge Exam The patient appeared well Vital signs as documented. Lungs are clear to auscultation and appear unlabored Cardiac exam, Rhythm is regular.. No murmurs, rubs or gallops. Abdominal exam reveals normal bowel sounds, soft non tender, no masses Extremities are nonedematous and both pedal pulses are normal. Neurologic exam is alert and oriented, no focal loss of strength or sensation Skin is without bruises or rashes Psychologically is without concerns for anxiety or depression. Discharge Data Allergies Allergy/AdvReac Type Severity Reaction Status Date / Time lisinopril AdvReac Intermediate Cough,bronc Verified 07/07/21 14:38 hospasm adhesive tape AdvReac Mild Rash Verified 07/09/21 10:52 oxycodone [From Percocet] AdvReac Unknown Nausea Verified 07/07/21 14:38 Consultations 07/07/21 14:16 ED Decision to Admit Stat 07/07/21 15:36 Consult Cardiology Routine 07/09/21 10:34 Consult [facility] copyholder Routine Ordered Studies 07/07/21 11:18 CT abd pelvis IV con only Stat 07/07/21 12:34 CT angio chest PE protocol Stat Diabetes Follow up Diabetes Follow-up Needed for HgbA1c >9% Hospital Course (1) Chest pain: 71 yo female with 2 week history of atypical chest pain. now proved to be non ischemic cardiac disease However, patient did have a cardiac cath completed last year. Consult cardiology recommended increase isosorbide, stress did not reach target no large issues or RWMA seen07/08/21 resume asa/statin/diltiazem symptoms not cardiac ischemia, sensation of 'pounding" No overnight arrhythmia (2) CAD (coronary artery disease): Cath completed in summer Showed Stenosis in a small branch of LAD. treated with CCB. continue with isosorbide,increase dose, BB, ASA. (3) Diabetes type 2, controlled: glycemic control A1C.9.9 (4) GERD with esophagitis: continue PPI. (5) Dyslipidemia: continue statin full code (6) Norovirus: Pt with dierrhea and found to have norovirus likely from family spread, supportive care offered Total Time Total Time Spent Total Time Spent (In Minutes): It required greater than 30 minutes to prepare this patient for discharge Discharge Plan Discharge Items Patient Disposition: Home - Self-Care Reason For Visit: CHEST PAIN Discharge Diagnosis: chest pain, unstable angina ruled out Activity: Per Instructions section Non-emergency contact: Primary Care Provider Call non-emergency contact if: your symptoms worsen Follow-up/Referrals: Sae Wilkes MD [Primary Care Provider] - Diet: Heart Healthy Addtl Attending Provider Instructions: please follow up with your regularly scheduled cardiology appointment, I will have my nurse navigator, Beverly Boyer, call to try to move up your appointment during your stay it was noticed that you are slightly anemic, please take a multiple vitamin with iron and be sure your family doctor or marketing communications coordinator follows up with some outpatient blood work at your next appointment Pending Studies at Discharge: Yes Studies:: stool eval if sample sent Stand-Alone [facility]: [facility] Medications and DC Order Prescriptions: Continued sennosides-docusate sodium [Colace 2-In-1] 8.6-50 mg tablet 1 tab-cap PO QAM Qty: 90 RF: 3 atorvastatin 40 mg tablet 40 mg PO .COMPLEX Qty: 30 RF: 11 aspirin 81 mg tablet,chewable 81 mg PO QAM RF: 0 metoprolol succinate 50 mg tablet extended release 24 hr 75 mg PO QAM RF: 0 diltiazem HCl 240 mg capsule,extended release 24hr 240 mg PO QAM RF: 0 coQ10 (ubiquinol) 200 mg Capsule 200 mg PO DAILY RF: 0 Prolensa 0.07 % Drops 1 drp OPB QID RF: 0 pantoprazole [Protonix] 40 mg tablet,delayed release (DR/EC) 40 mg PO QAM RF: 0 Basaglar KwikPen U-100 Insulin 100 unit/mL (3 mL) insulin pen 30 unit SUBCUT QAM RF: 0 montelukast [Singulair] 10 mg Tablet 10 mg PO QAM RF: 0 insulin aspart U-100 [Novolog Flexpen U-100 Insulin] 100 unit/mL (3 mL) insulin pen 18 unit subcut UD RF: 0 Changed isosorbide mononitrate 60 mg tablet extended release 24 hr 60 mg PO BID Qty: 60 RF: 3 Discharge Orders: Discharge Order (Routine); Ordered 07/09/21 Ordered By: Ho Gaxiola Admission Data Admit Date/Time: 07/07/21 15:55 Attending Provider: Ho Gaxiola Admit Provider: Don Trevino Primary Care Provider: Sae Wilkes Other Providers: Don Trevino ; Roney Willis Other Interventions: Discharge Summary Assessment (RN) Last Done: 07/09/21 10:37 Coding Level of Care Code D/C DAY MANAGEMENT >30 MINS Diagnoses Chest pain R07.9 Chest pain type: unspecified CAD (coronary artery disease) I25.10 Diabetes type 2, controlled E11.9 GERD with esophagitis K21.00 Dyslipidemia E78.5 Norovirus A08.11
--- NOTE | 2021-09-15 13:50 | Coding Query ---
A supporting diagnosis is required for the test/procedure performed on this patient in order for us to be reimbursed by the patient's insurance. Please provide a supporting diagnosis for the following test/procedure listed below next to the test name along with your signature. *If there is no additional diagnosis for this patient that would support the following test/procedure please document that below next to the test/procedure. Test(s)/Procedure(s) that require a supporting diagnosis: * 10375 STOOL GI PCR PANEL DIAGNOSIS: diarrhea Provider Signature: Date: Thank you Mili James [employer] Once completed, please kindly fax back to [phone] For questions please call [phone] [facility]
== END 2021-07-09 12:00 | disposition home or self-care (01) ==
LOC: ED 10:57 → 2E 10:57 → SUATTDRO 15:55 → 2E 16:16

== ENCOUNTER 2024-10-03 15:06 | Inpatient (IN) ==
--- NOTE | 2024-10-03 15:45 | Emergency Department Note ---
Impression & Plan Melena, Atypical chest pain, Anticoagulant long-term use, Upper abdominal pain, Weakness ED Provider Note Provider: Taran Hernandez MD CHIEF COMPLAINT: Mid to left chest and upper abdominal discomfort HISTORY OF PRESENT ILLNESS: Patient is a 74-year-old female past medical history including GERD, type 2 diabetes, renal stenosis, IBS, COPD, fibromyalgia, and recent finding of left renal infarct the end of July started on Eliquis following close with her primary doctor and nephrology presenting here today stating she is. Some worsened mid left chest and upper abdominal discomfort. Does radiate to the back. No falls or syncope. Feeling quite weak and rundown. Reports a bit of left-sided headache today as well. Has had some ongoing mild left flank and abdominal discomfort over the last several weeks. Has had some black tarry stools over the past 4 weeks. Is having outpatient follow-up with GI established as well as cardiology and follows again closely with nephrology. No syncope reported. Did have her medications today but only a small amount of toast and she believes she vomited up her toast. Patient reports she feels full and bloated in the abdomen. PAST MEDICAL HISTORY: As noted above MEDICATIONS: Reviewed home medications with her at bedside includes Eliquis SOCIAL HISTORY: Not currently smoking PHYSICAL EXAM: GENERAL: alert and oriented in no acute distress on stretcher fatigued in appearance Head: normocephalic and atraumatic EYES: No injection, discharge or icterus. PERRL, EOMI. NECK: Trachea midline. Supple good range of motion without masses appreciable posteriorly ENT: Mucous membranes pink and moist. LUNGS: Airway patent. No retractions. Breath sounds clear with good air entry bilaterally. HEART: Regular rate bradycardic and rhythm. No chest wall tenderness ABDOMEN: Soft and non-tender, without guarding or rebound. No hepatosplenomegaly or masses Rectal: With nurse health and safety representative present small nonthrombosed or obviously bleeding external hemorrhoid noted with Hemoccult positive stool from rectal vault obtained. SKIN: Acyanotic, warm, dry, without rashes EXTREMITIES: Without swelling, tenderness or deformity NEUROLOGICAL: No aphasia. No facial droop or slurred speech. Normal strength and tone in the extremities. Sensation somewhat diminished in the lateral left arm and leg but good movement here. Patient is ambulatory. EK bpm sinus bradycardia without acute ST segment elevation & nonspecific T wave inversions. QTc 420. CONTINUOUS CARDIAC MONITORING: was ordered and showed a heart rate of 50s bpm in sinus bradycardia Patient's laboratory studies and imaging reviewed. Differential includes infections, ACS, CVA, dissection, diverticulitis, UTI, obstruction, mesenteric ischemia, aortic pathology, inflammatory bowel disease, renal colic, PUD, pancreatitis, biliary pathology, hernia, volvulus, constipation, gastritis, GI bleed, as well as other pathologies. IMPRESSION/MEDICAL DECISION MAKING: Patient with some ongoing chronic issues seem to be exacerbating today with some middle left chest and upper abdomen pain rating to the back. Reports bit of left-sided headache now but does not seem to have dysarthria slurred speech or facial droop. Reports little bit of numbness in the lateral aspect of the arm and leg but not circumferentially. Atypical distribution for CVA and seems to have intact movement. Has been having ongoing issues with the stomach and has seen vascular as well as GI in the past. Has had some tarry stools and was recently started on Eliquis related to renal infarct just over a month ago. Hemoccult positive here. Given some IV Protonix here and is on a PPI at home. Type and screen sent and hemoglobin today does appear somewhat down trending at 9.6 from baseline in the 12's prior to starting anticoagulation. Doubt brisk upper GI bleed but likely some slow or chronic losses. Normal platelet count white blood cell count however. No significant electrolyte abnormality signs of acute renal dysfunction. No acute hepatitis or pancreatitis. Does not seem to indication for any acute transfusion. Patient is hypertensive here. CT of the head without acute bleed per radiology report. CT angiogram of the head without significant vascular abnormality of the CT of the neck noticed multiple stenosis of the carotids. Patient is following with vascular and could follow-up regarding these. She is anticoagulated. CTA of the chest without evidence of dissection/aneurysm or obvious PE per radiology. CTA of the abdomen pelvis per radiology without evidence of dissection with severe stenosis of the SMA as well as left renal artery stenosis. Patient with some improvement on reexamination without as much discomfort or nausea. Patient states she is still feeling somewhat weak. Discussed with her anemia likely needs further workup. She did have prior EGD in May here with some gastritis. Does not have scheduled follow-up with GI at this time although she has been working on her outpatient referrals for this. Discussed with her options of close outpatient follow-up and further monitoring versus staying for observation. Patient states with her weakness and no clear follow-up appointment she would prefer to stay in the hospital and be observed. Discussed with her I cannot promise they would do any emergent EGD/colonoscopy if she stayed. She acknowledges. Hospitalist was contacted. DIAGNOSIS: Atypical chest pain, abdominal pain, melena, long-term anticoagulation DISPOSITION: Hospitalist will evaluate Past Med/Surg History Problem List (Updated 10/03/24 @ 18:19 by Blossom Wei PA-C) GI bleed Weakness (Acute) Upper abdominal pain (Acute) Anticoagulant long-term use (Acute) Atypical chest pain (Acute) Melena (Acute) Enterocolitis Mesenteric artery stenosis Renal artery stenosis Chronic low back pain Chronic diarrhea Degenerative arthritis Diabetic retinopathy Anemia Constipation Gastric intestinal metaplasia Superior mesenteric artery stenosis Depression Hypertension Bipolar disorder Fibromyalgia Diabetic neuropathy Uncontrolled type 2 diabetes mellitus with hyperglycemia (Chronic) 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) Carotid stenosis (Chronic) GERD with esophagitis Aortic systolic murmur on examination Left ventricular hypertrophy by electrocardiogram Dyslipidemia (Chronic) IBS (irritable bowel syndrome) COPD (chronic obstructive pulmonary disease) Asthma inhaler/nebulizer prn Medical History Noncompliance with medication regimen History of kidney stones History of depression History of bipolar disorder Diabetes mellitus, type 2 IBS (irritable bowel syndrome) Gastric intestinal metaplasia Fibromyalgia Hypertension Diabetic retinopathy Diabetic neuropathy COPD (chronic obstructive pulmonary disease) Coronary artery disease Hx of constipation History of diarrhea Hx of nausea and vomiting Carotid stenosis Left ventricular hypertrophy Aortic systolic murmur on examination Anemia Superior mesenteric artery stenosis Hiatal hernia Gastritis GERD (gastroesophageal reflux disease) Hemorrhoids History of Holter monitoring Chest pain syndrome Sleep apnea History of COVID-19 History of anesthesia reaction History of colon polyps Unstable angina Surgical History History of postoperative nausea and vomiting History of colonoscopy (12/2023) History of cardiac cath (~11/23/20) History of esophagogastroduodenoscopy (EGD) History of cataract surgery History of elbow surgery History of bladder surgery History of hysterectomy Family History Mother Diabetes Lung cancer Hypertension Father Diabetes Coronary heart disease S/P CABG (coronary artery bypass graft) Testicular cancer Hypertension Stroke Brother Prostate cancer Diabetes Family history of reaction to anesthesia Brother Prostate cancer Sister Diabetes Lung cancer Family history of reaction to anesthesia Sister Diabetes Autoimmune disease Kidney disease Stroke Grandmother (Paternal) Dementia Grandfather (Maternal) Myocardial infarction Grandmother (Maternal) Liver cancer Sister Diabetes Dementia Denies family history of Ovarian cancer Breast cancer Colorectal cancer Social History Smoking Status: Never smoker Second Hand Exposure: No; Do You Dip or Chew Tobacco: No; Hx Alcohol Use: No Hx Substance Use: No Preferred Language: Pashto 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 Ability: Effective Visual Impairment: No Limitations 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: Normal Aerodynamicist Required: No Beliefs That Will Affect Care: None marital status: Current Living Situation: Spouse Current Living Situation Comment: and granddaughter current occupational status: retired Feels Safe at Home: Yes Childhood Exposure to Second-Hand Smoke: Yes (limited ) Diet: regular Diet Comment: regular caffeine: Yes during the past year weight has: remained stable Dental Care, Regularly: Yes Physical Activity Frequency: Daily Seatbelt Use: always Sunscreen Use: Yes Assistive Devices: None Allergies Allergies Allergy/AdvReac Type Severity Reaction Status Date / Time adhesive tape Allergy Mild Rash Verified 09/29/24 13:45 duloxetine [From Cymbalta] Allergy Unknown Hives Verified 09/29/24 13:45 hydromorphone [From Dilaudid] AdvReac Severe Vomiting Verified 09/29/24 13:45 lisinopril AdvReac Intermediate Cough,bronc Verified 09/29/24 13:45 hospasm oxycodone [From Percocet] AdvReac Unknown Nausea Verified 09/29/24 13:45 Home Meds Home Medications Medication Instructions Recorded Confirmed aspirin 81 mg tablet,delayed 81 mg PO DAILY 06/20/24 10/03/24 release (Adult Aspirin Regimen) lifitegrast 5 % eye drops in a 1 drp ophthalmic (eye) BID 06/20/24 10/03/24 dropperette (Xiidra) pantoprazole 40 mg tablet,delayed 40 mg PO DAILY 06/20/24 10/03/24 release insulin lispro 100 unit/mL 18 - 60 unit subcut BIDWMEAL 08/29/24 10/03/24 subcutaneous pen (Admelog SoloStar U-) rylnyvbt-qxee-egog 8 mg-folic 400 1 tab PO DAILY 08/29/24 10/03/24 mcg-K 50 mcg-lutein 300 mcg tablet (Centrum Silver Women) Previous Rx's Medication Instructions Recorded pen needle, diabetic 32 gauge x #120 ea 02/21/22 5/32" (BD Kay 2nd Gen Pen Needle) insulin glargine 100 unit/mL (3 34 unit (0.34 mL) subcut QAM #45 mL 10/24/23 mL) subcutaneous pen (Basaglar KwikPen U-100 Insulin) blood sugar diagnostic (OneTouch #100 ea 12/27/23 Ultra Test strips) diabetic supplies, miscellan. #1 ea 02/11/24 (CeQur Simplicity Software Test Automation Engineer) ondansetron 4 mg disintegrating 4 mg PO Q4H PRN nausea and 08/29/24 tablet vomiting 0 days #10 tabs tramadol 50 mg tablet 50 mg PO Q6H PRN pain #14 tabs 08/29/24 olmesartan 20 mg tablet 20 mg PO DAILY #30 tabs 09/16/24 apixaban 5 mg tablet 5 mg PO BID #180 tabs 09/29/24 hydrochlorothiazide 12.5 mg capsule 12.5 mg PO DAILY #30 caps 09/29/24 Results & Data (ED) Vital Signs Vital Signs - 24 hr 10/03/24 15:07 10/03/24 15:19 10/03/24 15:19 Temperature 36.6 C Temperature Source Temporal Artery Scan Pulse Rate 62 Pulse Rate [Apical] 55 L Respiratory Rate 20 20 Respiratory Effort / Characteristics Non-Labored Respiratory Depth Normal Blood Pressure 187/71 H Blood Pressure [Right Arm] 175/73 H Blood Pressure Mean 109 Blood Pressure Mean [Right Arm] 107 Pulse Oximetry 97 96 97 Oxygen Delivery Method Room Air Room Air Room Air Sepsis Recent Fever Within 48 Hours No Sepsis New/Unexplained Change in Mental Status N/A Sepsis Action Taken by Nursing No Action Required 10/03/24 15:37 10/03/24 15:45 10/03/24 16:09 Temperature Temperature Source Pulse Rate 54 L Pulse Rate [Apical] 67 Respiratory Rate 20 Respiratory Effort / Characteristics Non-Labored Respiratory Depth Normal Blood Pressure Blood Pressure [Right Arm] 161/58 H Blood Pressure Mean Blood Pressure Mean [Right Arm] 92 Pulse Oximetry 96 97 Oxygen Delivery Method Room Air Room Air Sepsis Recent Fever Within 48 Hours Sepsis New/Unexplained Change in Mental Status Sepsis Action Taken by Nursing 10/03/24 17:27 10/03/24 19:34 10/03/24 19:43 Temperature Temperature Source Pulse Rate 53 L Pulse Rate [Apical] 68 52 L Respiratory Rate 20 14 Respiratory Effort / Characteristics Non-Labored Respiratory Depth Normal Blood Pressure Blood Pressure [Right Arm] 134/88 144/60 H Blood Pressure Mean Blood Pressure Mean [Right Arm] 103 88 Pulse Oximetry 98 97 Oxygen Delivery Method Room Air Room Air Sepsis Recent Fever Within 48 Hours Sepsis New/Unexplained Change in Mental Status Sepsis Action Taken by Nursing Laboratory Data 10/03/24 15:33 10/03/24 15:33 Lab Results 10/03/24 10/03/24 10/03/24 Range/Units 15:24 15:33 16:12 WBC 5.62 (4.8-10.8) K/ul RBC 3.18 L (4.20-5.40) M/uL Hgb 9.6 L (12.0-16.0) g/dl POC Hgb 9.5 L (12.0-16.0) g/dl Hct 29.6 L (37.0-47.0) % POC Hct 28 L (37-47) % MCV 93.1 (80.0-100.0) fL MCH 30.2 (25.0-34.0) pg MCHC 32.4 (32.0-36.0) g/dL RDW Std Deviation 58.5 H (36.4-46.3) fL RDW Coeff of Rolando 17.5 H (11.5-14.5) % Plt Count 189 (130-400) K/uL MPV 10.3 (9.4-12.4) fL Immature Gran % (Auto) 0.5 % Neut % (Auto) 68.7 % Lymph % (Auto) 21.4 % [place] % (Auto) 6.4 % Eos % (Auto) 2.1 % Baso % (Auto) 0.9 % Neut # (Auto) 3.86 (1.40-6.50) K/uL Lymph # (Auto) 1.20 (1.20-3.40) K/uL [place] # (Auto) 0.36 (0.11-0.59) K/uL Eos # (Auto) 0.12 (0.00-0.50) K/uL Baso # (Auto) 0.05 (0.00-0.20) K/uL Immature Gran # (Auto) 0.03 (0.01-0.20) K/uL PT 11.1 (9.0-12.0) Seconds INR 1.0 (0.9-1.1) APTT 29 (21-31) Seconds PTT Ratio 1.1 POC Sodium 141 (135-144) mmol/L Sodium 140 (136-145) mmol/L POC Potassium 4.3 (3.3-5.0) mmol/L Potassium 4.2 (3.5-5.1) mmol/L POC Chloride 104 (101-112) mmol/L Chloride 105 (98-107) mmol/L Carbon Dioxide 28 (21-32) mmol/L POC Total CO2 26 (24-31) mmol/L Anion Gap 7 (3-11) POC Anion Gap 16.0 (16-25) mmol/L POC BUN 22 H (7-18) mg/dl BUN 25 H (6-23) mg/dl Creatinine 0.85 (0.6-1.2) mg/dl POC Creatinine 0.9 (0.6-1.3) mg/dl Est Cr Clr Drug Dosing 64.6 ml/min eGFR 72.75 BUN/Creatinine Ratio 29.4 H (10-20) Glucose 93 (70-99(Fasting)) mg/dl POC Glucose (other) 95 (70-99) mg/dl Calcium 9.1 (8.6-10.3) mg/dl POC Ioniz Calcium Rick 1.18 (1.12-1.32) mmol/l Iron 71 (35-150) mcg/dl Ferritin 67.8 (8-388) ng/ml Total Bilirubin 0.4 (0.2-1.0) mg/dl AST 11 L (13-39) U/L ALT 14 (7-52) U/L Alkaline Phosphatase 44 (34-104) U/L Troponin I High Sens 5.4 (0-14) pg/ml Total Protein 6.8 (6.0-8.3) gm/dl Albumin 4.3 (3.4-5.0) gm/dl Globulin 2.5 (2.5-4.0) gm/dl Albumin/Globulin Ratio 1.7 (0.9-2) Lipase 18 (11-82) U/L Vitamin B12 449 (180-914) pg/ml Folate 21.68 (>5.38) ng/ml TSH 1.680 (0.300-4.500) uIu/ml POC Stool Occult Blood Positive A (Negative) Blood Type Antibody Screen 10/03/24 Range/Units 16:14 WBC (4.8-10.8) K/ul RBC (4.20-5.40) M/uL Hgb (12.0-16.0) g/dl POC Hgb (12.0-16.0) g/dl Hct (37.0-47.0) % POC Hct (37-47) % MCV (80.0-100.0) fL MCH (25.0-34.0) pg MCHC (32.0-36.0) g/dL RDW Std Deviation (36.4-46.3) fL RDW Coeff of Rolando (11.5-14.5) % Plt Count (130-400) K/uL MPV (9.4-12.4) fL Immature Gran % (Auto) % Neut % (Auto) % Lymph % (Auto) % [place] % (Auto) % Eos % (Auto) % Baso % (Auto) % Neut # (Auto) (1.40-6.50) K/uL Lymph # (Auto) (1.20-3.40) K/uL [place] # (Auto) (0.11-0.59) K/uL Eos # (Auto) (0.00-0.50) K/uL Baso # (Auto) (0.00-0.20) K/uL Immature Gran # (Auto) (0.01-0.20) K/uL PT (9.0-12.0) Seconds INR (0.9-1.1) APTT (21-31) Seconds PTT Ratio POC Sodium (135-144) mmol/L Sodium (136-145) mmol/L POC Potassium (3.3-5.0) mmol/L Potassium (3.5-5.1) mmol/L POC Chloride (101-112) mmol/L Chloride (98-107) mmol/L Carbon Dioxide (21-32) mmol/L POC Total CO2 (24-31) mmol/L Anion Gap (3-11) POC Anion Gap (16-25) mmol/L POC BUN (7-18) mg/dl BUN (6-23) mg/dl Creatinine (0.6-1.2) mg/dl POC Creatinine (0.6-1.3) mg/dl Est Cr Clr Drug Dosing ml/min eGFR BUN/Creatinine Ratio (10-20) Glucose (70-99(Fasting)) mg/dl POC Glucose (other) (70-99) mg/dl Calcium (8.6-10.3) mg/dl POC Ioniz Calcium Rick (1.12-1.32) mmol/l Iron (35-150) mcg/dl Ferritin (8-388) ng/ml Total Bilirubin (0.2-1.0) mg/dl AST (13-39) U/L ALT (7-52) U/L Alkaline Phosphatase (34-104) U/L Troponin I High Sens (0-14) pg/ml Total Protein (6.0-8.3) gm/dl Albumin (3.4-5.0) gm/dl Globulin (2.5-4.0) gm/dl Albumin/Globulin Ratio (0.9-2) Lipase (11-82) U/L Vitamin B12 (180-914) pg/ml Folate (>5.38) ng/ml TSH (0.300-4.500) uIu/ml POC Stool Occult Blood (Negative) Blood Type O Positive Antibody Screen NEGATIVE Administered Medications Discontinued Medications Fentanyl Citrate (Fentanyl Citrate Pf 100 Mcg/2 Ml Vial) 50 mcg IV NOW STA Stop: 10/03/24 16:03 Last Admin: 10/03/24 16:13 Dose: 50 mcg Documented By: SHAY Pantoprazole Sodium 80 mg/ (Dextrose) 120 mls @ 480 mls/hr IV ONE STA Stop: 10/03/24 15:46 Last Infusion: 10/03/24 16:33 Dose: Infused Documented By: Admin: 10/03/24 16:13 Dose: 480 mls/hr Documented By: SHAY Sodium Chloride (Nss) 1,000 mls @ 999 mls/hr IV .Q1H1M ONE Stop: 10/03/24 16:41 Last Infusion: 10/03/24 16:44 Dose: Infused Documented By: Admin: 10/03/24 15:46 Dose: 999 mls/hr Documented By: BIRGIT Ioversol (Optiray 320 125ml) 115 ml IV ONCE ONE Stop: 10/03/24 15:52 Last Admin: 10/03/24 15:51 Dose: 115 ml Documented By: BE Metoclopramide HCl (Metoclopramide Hcl Inj 5 Mg/Ml 2 Ml Vial) 10 mg IV NOW STA Stop: 10/03/24 15:42 Last Admin: 10/03/24 15:46 Dose: 10 mg Documented By: BIRGIT Imaging Data Radiologist's Impression: Abdomen/Pelvis CTA 10/03/24 15:30 Clinical history: Chest pain and shortness of breath Technique: Axial computed tomography images were obtained of the abdomen and pelvis after the administration of intravenous contrast according to the CT angiogram protocol Findings: The abdominal aorta appears unremarkable with no sign of aneurysm or dissection. No stenosis is seen involving it. There is mild plaque in the proximal celiac axis, without stenosis. There is a severe stenosis of the proximal superior mesenteric artery. The inferior mesenteric artery is patent as well. There is calcified plaque in the proximal right renal artery, without stenosis. There is an approximately 50% stenosis of the proximal left renal artery. The iliac arteries appear unremarkable with no sign of aneurysm or stenosis. The visualized common femoral arteries appear unremarkable as well The liver is overall of normal size, attenuation, and contour with no sign of cirrhosis or significant fatty infiltration. No liver mass lesion is seen. The portal vein is patent. The gallbladder appears unremarkable. No bile duct dilatation is noted. The spleen is of normal size. No focal splenic lesion is evident. The pancreas appears normal with no sign of acute or chronic pancreatitis and no mass lesion noted. The pancreatic duct is of normal caliber. The adrenal glands appear unremarkable. No definite renal or proximal ureteral calculi are seen on this contrast-enhanced study. There is no hydronephrosis or perinephric stranding. No renal mass lesion is identified. No adenopathy is seen. The stomach appears normal. There is no sign of small bowel obstruction. There is mild sigmoid diverticulosis without evidence of diverticulitis. There is no sign of appendicitis. No free intraperitoneal fluid or air is identified. No distal ureteral or bladder calculi are seen. No bladder mass lesion is evident. The uterus has been removed No fracture is identified. No focal osseous lesion is seen Impression: 1. No sign of abdominal aortic aneurysm or dissection 2. Severe SMA stenosis 3. Approximately 50% stenosis of the proximal left renal artery 4. Diverticulosis without evidence of diverticulitis ACT 112: Positive. There are findings on this exam that require communication between the performing entity and the patient following Patient Test Result Information Act ([place] ACT 112) guidelines. Electronically signed by Shane Barroso 10-03-2024 4:41 PM Chest CTA 10/03/24 15:30 Clinical history: Chest pain and shortness of breath Technique: Axial computed tomography images were obtained of the chest before and after the administration of intravenous contrast according to the CT angiogram protocol Findings: There is mild right middle lobe and lingular atelectasis. The lungs otherwise appear clear without infiltrate or mass. There is no pleural effusion or pneumothorax. There is no sign of pulmonary fibrosis or other diffuse interstitial process. No endobronchial lesion is seen There is no mediastinal, hilar, or axillary adenopathy. The thoracic aorta appears unremarkable with no sign of aneurysm or dissection. There is no pericardial effusion. There is coronary atherosclerosis. There is no definite sign of pulmonary embolism. The visualized upper abdomen appears unremarkable. No fracture is seen. No focal osseous lesion is evident Impression: 1. No sign of thoracic aortic aneurysm or dissection 2. No definite sign of pulmonary embolism 3. Essentially normal-appearing lungs Electronically signed by Shane Barroso 10-03-2024 4:[address] 10/03/24 15:30 Technique: Axial computed tomography images were obtained of the brain without intravenous contrast. Findings: There is diffuse cerebral atrophy, within expected limits for the patient's age. Areas of decreased attenuation are seen within the periventricular white matter, likely representing chronic small vessel ischemic disease. There is no definite sign of acute or old infarction. No intracranial hemorrhage is evident. No definite mass lesion is seen on this noncontrast examination. There is no midline shift or other form of herniation. No hydrocephalus is seen. No fracture is identified. The orbits and the visualized paranasal sinuses appear unremarkable. The mastoid air cells appear clear. Impression: 1. Cerebral atrophy and chronic small vessel ischemic disease 2. Otherwise unremarkable noncontrast CT of the brain Electronically signed by Shane Barroso 10-03-2024 4:25 PM Neck CTA 10/03/24 15:30 Technique: Axial computed tomography images were obtained of the neck after the administration of intravenous contrast according to the CT angiogram protocol Findings: There is an approximately 50% diameter stenosis of the mid left common carotid artery. There is a severe stenosis of the left carotid bulb with 70-80% diameter narrowing. There is an approximately 50% diameter stenosis of the right carotid bulb. There is a subsequent mild stenosis of the proximal right internal carotid artery with approximately 30% diameter narrowing. There is a severe stenosis of the proximal left external carotid artery. There is a mild stenosis at the origin of the right external carotid artery The vertebral arteries are patent bilaterally with no significant stenosis seen. The visualized thoracic aorta appears unremarkable. There is a mild stenosis at the origin of the left subclavian artery There is multilevel degenerative disc disease and osteoarthritis of the cervical spine. Impression: 1. Severe stenosis of the left carotid bulb 2. Approximately 50% stenosis of the mid left CCA 3. 50% stenosis of the right carotid bulb and mild stenosis of the proximal right ICA 4. Mild stenosis of the origin of the left subclavian artery 5. Severe stenosis of the proximal left ECA and mild stenosis of the proximal right ECA ACT 112: Positive. There are findings on this exam that require communication between the performing entity and the patient following Patient Test Result Information Act ([place] ACT 112) guidelines. Electronically signed by Shane Barroso 10-03-2024 4:32 PM Head CTA 10/03/24 15:41 Technique: Axial computed tomography images were obtained of the brain after the administration of intravenous contrast according to the CT angiogram protocol Findings: There is calcified plaque within the cavernous and supraclinoid segments of the internal carotid arteries bilaterally, without stenosis No definite stenosis or aneurysm is seen of the anterior, middle, or posterior cerebral artery circulations. The basilar artery appears diffusely small, which could be due to normal variation. No definite focal stenosis is seen. Posterior communicating arteries are present bilaterally Impression: No definite stenosis or aneurysm of the intracranial arteries Electronically signed by Shane Barroso 10-03-2024 4:27 PM Discharge Plan Visit Data Chief Complaint: Cardiac Assessment Stated Complaint: LIGHT HEADED, HEADACHE LEFT SIDE,LEFT PAIN ON SIDE ED Provider: Taran Hernandez Discharge Problem: Melena, Atypical chest pain, Anticoagulant long-term use, Upper abdominal pain, Weakness Patient Disposition: Being Evaluated by Hospitalist Condition: Fair Discharge Instructions Interventions: ED Discharge Assessment Last Done: 10/03/24 20:05 Forms Stand Alone Forms: My [employer] Prescriptions Prescriptions: No Action insulin glargine [Basaglar KwikPen U-100 Insulin] 100 unit/mL (3 mL) insulin pen 34 unit SUBCUT QAM Qty: 45 4RF (DME) OneTouch Ultra Test Strip See Rx Instructions .Route Qty: 100 3RF Rx Instructions: Test blood sugar once daily PRN olmesartan 20 mg tablet 20 mg PO DAILY Qty: 30 3RF apixaban 5 mg tablet 5 mg PO BID Qty: 180 3RF (DME) pen needle, diabetic [BD Kay 2nd Gen Pen Needle] 32 gauge x 5/32" needle See Rx Instructions miscellaneous .MEDSUPPLY Qty: 120 5RF Rx Instructions: New pen needle 4x a day hydrochlorothiazide 12.5 mg capsule 12.5 mg PO DAILY Qty: 30 3RF pantoprazole 40 mg tablet,delayed release (DR/EC) 40 mg PO DAILY aspirin [Adult Aspirin Regimen] 81 mg tablet,delayed release (DR/EC) 81 mg PO DAILY Xiidra 5 % dropperette 1 drp ophthalmic (eye) BID (DME) CeQur [employer]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
[2024-10-03] MEDS: SODIUM CHLORIDE 0.9% 1,000 ML IV ONE (15:46)
[2024-10-03] MEDS: METOCLOPRAMIDE HCL INJ 5 MG/ML 2 ML VIAL IV STA (15:46)
[2024-10-03 15:47] LABS: Hematocrit (blood only) 29.6 % (37.0-47.0); Hemoglobin 9.6 g/dl (12.0-16.0); Immature Granulocytes # (auto) 0.03 K/uL (0.01-0.20); Immature Granulocytes % (auto) 0.5 %; Mean Corpuscular Hemoglobin 30.2 pg (25.0-34.0); Mean Corpuscular Volume 93.1 fL (80.0-100.0); Platelet Count 189 K/uL (130-400); RDW Standard Deviation 58.5 fL (36.4-46.3); Red Blood Count 3.18 M/uL (4.20-5.40); White Blood Count 5.62 K/ul (4.8-10.8)
[2024-10-03] MEDS: OPTIRAY 320 125ml IV ONE (15:51)
[2024-10-03 16:04] LABS: Alanine Aminotransferase 14.0 U/L (7-52); Albumin Globulin Ratio 1.7 (0.9-2); Alkaline Phosphatase 44.0 U/L (34-104); Anion Gap 7.0 (3-11); Bilirubin,Total 0.4 mg/dl (0.2-1.0); Blood Urea Nitrogen 25.0 mg/dl (6-23); Calcium 9.1 mg/dl (8.6-10.3); Carbon Dioxide 28.0 mmol/L (21-32); Chloride 105.0 mmol/L (98-107); Creatinine Clr Calc Pharmacy 64.6 ml/min; Globulin 2.5 gm/dl (2.5-4.0); Glucose 93.0 mg/dl (70-99(Fasting)); Lipase 18.0 U/L (11-82); Potassium 4.2 mmol/L (3.5-5.1); Sodium 140.0 mmol/L (136-145); Total Protein 6.8 gm/dl (6.0-8.3)
[2024-10-03 16:13] LABS: INR 1.0 (0.9-1.1); Partial Thromboplastin Time 29 Seconds (21-31); Prothrombin Time 11.1 Seconds (9.0-12.0)
--- NOTE | 2024-10-03 16:25 | CT Scan Report ---
Technique: Axial computed tomography images were obtained of the brain without intravenous contrast. Findings: There is diffuse cerebral atrophy, within expected limits for the patient's age. Areas of decreased attenuation are seen within the periventricular white matter, likely representing chronic small vessel ischemic disease. There is no definite sign of acute or old infarction. No intracranial hemorrhage is evident. No definite mass lesion is seen on this noncontrast examination. There is no midline shift or other form of herniation. No hydrocephalus is seen. No fracture is identified. The orbits and the visualized paranasal sinuses appear unremarkable. The mastoid air cells appear clear. Impression: 1. Cerebral atrophy and chronic small vessel ischemic disease 2. Otherwise unremarkable noncontrast CT of the brain Electronically signed by Shane Barroso 10-03-2024 4:25 PM
--- NOTE | 2024-10-03 16:28 | CT Scan Report ---
Technique: Axial computed tomography images were obtained of the brain after the administration of intravenous contrast according to the CT angiogram protocol Findings: There is calcified plaque within the cavernous and supraclinoid segments of the internal carotid arteries bilaterally, without stenosis No definite stenosis or aneurysm is seen of the anterior, middle, or posterior cerebral artery circulations. The basilar artery appears diffusely small, which could be due to normal variation. No definite focal stenosis is seen. Posterior communicating arteries are present bilaterally Impression: No definite stenosis or aneurysm of the intracranial arteries Electronically signed by Shane Barroso 10-03-2024 4:27 PM
--- NOTE | 2024-10-03 16:33 | CT Scan Report ---
Technique: Axial computed tomography images were obtained of the neck after the administration of intravenous contrast according to the CT angiogram protocol Findings: There is an approximately 50% diameter stenosis of the mid left common carotid artery. There is a severe stenosis of the left carotid bulb with 70-80% diameter narrowing. There is an approximately 50% diameter stenosis of the right carotid bulb. There is a subsequent mild stenosis of the proximal right internal carotid artery with approximately 30% diameter narrowing. There is a severe stenosis of the proximal left external carotid artery. There is a mild stenosis at the origin of the right external carotid artery The vertebral arteries are patent bilaterally with no significant stenosis seen. The visualized thoracic aorta appears unremarkable. There is a mild stenosis at the origin of the left subclavian artery There is multilevel degenerative disc disease and osteoarthritis of the cervical spine. Impression: 1. Severe stenosis of the left carotid bulb 2. Approximately 50% stenosis of the mid left CCA 3. 50% stenosis of the right carotid bulb and mild stenosis of the proximal right ICA 4. Mild stenosis of the origin of the left subclavian artery 5. Severe stenosis of the proximal left ECA and mild stenosis of the proximal right ECA ACT 112: Positive. There are findings on this exam that require communication between the performing entity and the patient following Patient Test Result Information Act ([place] ACT 112) guidelines. Electronically signed by Shane Barroso 10-03-2024 4:32 PM
--- NOTE | 2024-10-03 16:36 | CT Scan Report ---
Clinical history: Chest pain and shortness of breath Technique: Axial computed tomography images were obtained of the chest before and after the administration of intravenous contrast according to the CT angiogram protocol Findings: There is mild right middle lobe and lingular atelectasis. The lungs otherwise appear clear without infiltrate or mass. There is no pleural effusion or pneumothorax. There is no sign of pulmonary fibrosis or other diffuse interstitial process. No endobronchial lesion is seen There is no mediastinal, hilar, or axillary adenopathy. The thoracic aorta appears unremarkable with no sign of aneurysm or dissection. There is no pericardial effusion. There is coronary atherosclerosis. There is no definite sign of pulmonary embolism. The visualized upper abdomen appears unremarkable. No fracture is seen. No focal osseous lesion is evident Impression: 1. No sign of thoracic aortic aneurysm or dissection 2. No definite sign of pulmonary embolism 3. Essentially normal-appearing lungs Electronically signed by Shane Barroso 10-03-2024 4:36 PM
--- NOTE | 2024-10-03 16:42 | CT Scan Report ---
Clinical history: Chest pain and shortness of breath Technique: Axial computed tomography images were obtained of the abdomen and pelvis after the administration of intravenous contrast according to the CT angiogram protocol Findings: The abdominal aorta appears unremarkable with no sign of aneurysm or dissection. No stenosis is seen involving it. There is mild plaque in the proximal celiac axis, without stenosis. There is a severe stenosis of the proximal superior mesenteric artery. The inferior mesenteric artery is patent as well. There is calcified plaque in the proximal right renal artery, without stenosis. There is an approximately 50% stenosis of the proximal left renal artery. The iliac arteries appear unremarkable with no sign of aneurysm or stenosis. The visualized common femoral arteries appear unremarkable as well The liver is overall of normal size, attenuation, and contour with no sign of cirrhosis or significant fatty infiltration. No liver mass lesion is seen. The portal vein is patent. The gallbladder appears unremarkable. No bile duct dilatation is noted. The spleen is of normal size. No focal splenic lesion is evident. The pancreas appears normal with no sign of acute or chronic pancreatitis and no mass lesion noted. The pancreatic duct is of normal caliber. The adrenal glands appear unremarkable. No definite renal or proximal ureteral calculi are seen on this contrast-enhanced study. There is no hydronephrosis or perinephric stranding. No renal mass lesion is identified. No adenopathy is seen. The stomach appears normal. There is no sign of small bowel obstruction. There is mild sigmoid diverticulosis without evidence of diverticulitis. There is no sign of appendicitis. No free intraperitoneal fluid or air is identified. No distal ureteral or bladder calculi are seen. No bladder mass lesion is evident. The uterus has been removed No fracture is identified. No focal osseous lesion is seen Impression: 1. No sign of abdominal aortic aneurysm or dissection 2. Severe SMA stenosis 3. Approximately 50% stenosis of the proximal left renal artery 4. Diverticulosis without evidence of diverticulitis ACT 112: Positive. There are findings on this exam that require communication between the performing entity and the patient following Patient Test Result Information Act ([place] ACT 112) guidelines. Electronically signed by Shane Barroso 10-03-2024 4:41 PM
--- NOTE | 2024-10-03 17:21 | History & Physical Report ---
Date of Service October 03, 2024 Assessment & Plan (1) GI bleed: (2) Mesenteric artery stenosis: (3) Hypertension: (4) Diabetes mellitus, type 2: Plan Patient is a 74-year-old female past medical history including GERD, type 2 diabetes, renal stenosis, IBS, COPD, fibromyalgia, history of slow gastric emptying,and recent finding of left renal infarct the end of July started on Eliquis. initial evaluation reveals hemoglobin 9.6 with mild elevation of BUN. No electrolyte abnormalities. CT A/P severe SMA stenosis and approximately 50% stenosis of the proximal left renal artery. Chest CTA without PE. Admitted for GI evaluation and futher workup. #GI Bleed | Anemia Slow drop in hgb since starting Eliquis 12.7-->10.7--> 9.6 on admission hx of Fe defiency with recent venofer x3 in July Heme + stool in ER Normocytic anemia - check B12/folate/iron studies/ tsh for completeness Consult GI Check ortho VS Clear liquids okay for now, NPO at midnight for GI eval IV PPI BID AM CBC and BMP #Mesenteric artery stenosis | renal artery stenosis Follows closely with vascular and nephrology - at this time vascular intervention has been deferred due to risk/benefits Hold Eliquis and ASA for now - reeval in AM #HTN Continue Olmesartan (or formulary equivalent) Hold HCTZ with poor PO intake #DMT2 Home Regimen: Lantus 34 Unit + meal time - HELD AM Hgb A1c Lantus 20 Units + SSI #Headache | Numbness and tingling - left side Head CT without acute changes. Patient reports compliance with Eliquis and symptoms improving. Do not think she is having a stroke Continue to monitor, defer brain MRI at this time. Head/neck CT with multiple areas of severe stenosis Dispo: admit to med/tele DVT proh: SCDs, home ELiquis held family updated at bedside 10/03 History of Present Illness Chief Complaint: chest and abd pain Primary Care Provider: Rubi Aguilar DO Patient is a 74-year-old female past medical history including GERD, type 2 diabetes, renal stenosis, IBS, COPD, fibromyalgia, and recent finding of left renal infarct the end of July started on Eliquis. Presents to the ER with the light headedness, abdominal pain, headache and left sided numbness and tingling. Yesterday slow and lightheaded and short of breath. Thought she was just dehydrated because of being out in the heat. She has had minimal p.o. intake because of nausea however but has been trying to stay hydrated because she knows she is on the water pill Headache started around 130 this morning. Has not take anything for the headache. Does not normally get migraines Abdominal pain - reports take her breath away, boated for the last few weeks. Reports dark tary stools For the last couple of weeks, she confirms this is every time that she has a bowel movement. Also with nausea and vomiting, states that the vomit is mostly mucus. She has not noticed any blood. She is on Eliquis and baby aspirin. Reports having a high pain tolerance and not taking much pain medicine at home, was recently given tramadol by the ER but that makes her nauseous and constipated. Denies using any NSAIDs Reports a history of iron deficiency anemia had 3 infusions with the CCP in maintenance. Follow-up soon Lives with her , does not use a walker or cane at baseline. Wishes to be a full code. ED course: PPI 80mg IV Reglan 10mg IV NSS 1000mL IV fenatyl 50mcq citrate Allergies Allergy/AdvReac Type Severity Reaction Status Date / Time adhesive tape Allergy Mild Rash Verified 09/29/24 13:45 duloxetine [From Cymbalta] Allergy Unknown Hives Verified 09/29/24 13:45 hydromorphone [From Dilaudid] AdvReac Severe Vomiting Verified 09/29/24 13:45 lisinopril AdvReac Intermediate Cough,bronc Verified 09/29/24 13:45 hospasm oxycodone [From Percocet] AdvReac Unknown Nausea Verified 09/29/24 13:45 Home Medications Medication Instructions Recorded Confirmed Type pen needle, diabetic 32 gauge x #120 ea 02/21/22 09/29/24 Rx 5/32" (BD Kay 2nd Gen Pen Needle) insulin glargine 100 unit/mL (3 34 unit (0.34 mL) subcut QAM #45 mL 10/24/23 10/03/24 Rx mL) subcutaneous pen (Basaglar KwikPen U-100 Insulin) blood sugar diagnostic (OneTouch #100 ea 12/27/23 09/29/24 Rx Ultra Test strips) diabetic supplies, miscellan. 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) aspirin 81 mg tablet,delayed 81 mg PO DAILY 06/20/24 10/03/24 History release (Adult Aspirin Regimen) lifitegrast 5 % eye drops in a 1 drp ophthalmic (eye) BID 06/20/24 10/03/24 History dropperette (Xiidra) pantoprazole 40 mg tablet,delayed 40 mg PO DAILY 06/20/24 10/03/24 History release insulin lispro 100 unit/mL 18 - 60 unit subcut BIDWMEAL 08/29/24 10/03/24 History subcutaneous pen (Admelog SoloStar U-) [id number] 8 mg-folic 400 1 tab PO DAILY 08/29/24 10/03/24 History mcg-K 50 mcg-lutein 300 mcg tablet (Centrum Silver Women) ondansetron 4 mg disintegrating 4 mg PO Q4H PRN nausea and 08/29/24 10/03/24 Rx tablet vomiting 0 days #10 tabs tramadol 50 mg tablet 50 mg PO Q6H PRN pain #14 tabs 08/29/24 10/03/24 Rx olmesartan 20 mg tablet 20 mg PO DAILY #30 tabs 09/16/24 10/03/24 Rx apixaban 5 mg tablet 5 mg PO BID #180 tabs 09/29/24 10/03/24 Rx hydrochlorothiazide 12.5 mg capsule 12.5 mg PO DAILY #30 caps 09/29/24 10/03/24 Rx Past Med/Surg History Problem List (Updated 10/03/24 @ 18:19 by Blossom Wei PA-C) GI bleed Weakness (Acute) Upper abdominal pain (Acute) Anticoagulant long-term use (Acute) Atypical chest pain (Acute) Melena (Acute) Enterocolitis Mesenteric artery stenosis Renal artery stenosis Chronic low back pain Chronic diarrhea Degenerative arthritis Diabetic retinopathy Anemia Constipation Gastric intestinal metaplasia Superior mesenteric artery stenosis Depression Hypertension Bipolar disorder Fibromyalgia Diabetic neuropathy Uncontrolled type 2 diabetes mellitus with hyperglycemia (Chronic) 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) Carotid stenosis (Chronic) GERD with esophagitis Aortic systolic murmur on examination Left ventricular hypertrophy by electrocardiogram Dyslipidemia (Chronic) IBS (irritable bowel syndrome) COPD (chronic obstructive pulmonary disease) Asthma inhaler/nebulizer prn Medical History Noncompliance with medication regimen History of kidney stones History of depression History of bipolar disorder Diabetes mellitus, type 2 IBS (irritable bowel syndrome) Gastric intestinal metaplasia Fibromyalgia Hypertension Diabetic retinopathy Diabetic neuropathy COPD (chronic obstructive pulmonary disease) Coronary artery disease Hx of constipation History of diarrhea Hx of nausea and vomiting Carotid stenosis Left ventricular hypertrophy Aortic systolic murmur on examination Anemia Superior mesenteric artery stenosis Hiatal hernia Gastritis GERD (gastroesophageal reflux disease) Hemorrhoids History of Holter monitoring Chest pain syndrome Sleep apnea History of COVID-19 History of anesthesia reaction History of colon polyps Unstable angina Surgical History History of postoperative nausea and vomiting History of colonoscopy (12/2023) History of cardiac cath (~11/23/20) History of esophagogastroduodenoscopy (EGD) History of cataract surgery History of elbow surgery History of bladder surgery History of hysterectomy Family History Mother Diabetes Lung cancer Hypertension Father Diabetes Coronary heart disease S/P CABG (coronary artery bypass graft) Testicular cancer Hypertension Stroke Brother Prostate cancer Diabetes Family history of reaction to anesthesia Brother Prostate cancer Sister Diabetes Lung cancer Family history of reaction to anesthesia Sister Diabetes Autoimmune disease Kidney disease Stroke Grandmother (Paternal) Dementia Grandfather (Maternal) Myocardial infarction Grandmother (Maternal) Liver cancer Sister Diabetes Dementia Denies family history of Ovarian cancer Breast cancer Colorectal cancer Social History Smoking Status: Never smoker Second Hand Exposure: No; Do You Dip or Chew Tobacco: No; Tobacco Cessation Education Requested by Patient: No Hx Alcohol Use: Yes Alcohol Intake Frequency: Monthly or Less Hx Substance Use: No Preferred Language: [place] 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 Ability: Effective Visual Impairment: No Limitations 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: Normal Gate Guard Required: No Beliefs That Will Affect Care: None marital status: Current Living Situation: Spouse Current Living Situation Comment: lives with and granddaughter current occupational status: retired Other Information That Helps Us Care for You: No Feels Safe at Home: Yes Safety Concerns: Feels Safe At This Time Childhood Exposure to Second-Hand Smoke: Yes (limited ) Diet: regular Diet Comment: regular caffeine: Yes during the past year weight has: remained stable Dental Care, Regularly: Yes Physical Activity Frequency: Daily Seatbelt Use: always Sunscreen Use: Yes Assistive Devices: None Review of Systems Review of Systems: All systems reviewed & are unremarkable except as noted in Subjective Physical Exam Physical Exam: General: NAD, VS as above Resp: normal respiratory effort, lungs clear to auscultation CV: RRR, no murmur, Abd: generalized tenderness, worse in the epigastric reason. Soft, no guarding back: left flank area is mildly tender Extremities: Moves all extremities, no edema Neuro: A&O x3, Skin: intact, no lesions noted Results & Data Results & Data Vital Signs (Past 12 Hours) Vital Signs Temp Pulse Pulse Resp BP BP Pulse Ox 10/03/24 16:09 67 20 161/58 H 97 10/03/24 15:45 54 L 10/03/24 15:37 96 10/03/24 15:19 55 L 20 175/73 H 97 10/03/24 15:19 96 10/03/24 15:07 97.9 F 62 20 187/71 H 97 O2 Del Method 10/03/24 16:09 Room Air 10/03/24 15:45 10/03/24 15:37 Room Air 10/03/24 15:19 Room Air 10/03/24 15:19 Room Air 10/03/24 15:07 Room Air Laboratory Results cbc and chemistry reviewed lipase reviewed fecal occult reviewed Diagnostic Findings abdomen pelvis CT reviewed Head CT reviewed head CTA reviewed neck CTA and chest CTA reviewed Supervising Physician Co-Signing Physician Notes Attending Attestation & Admit Note: Pt seen/examined, chart reviewed, admit care plan d/w HENNY Wei. I agree w/ the matamoros components of her admit documentation. 74yo female with h/o GERD, type 2 diabetes, renal artery stenosis, IBS, COPD, fibromyalgia, carotid artery stenosis, mesenteric artery stenosis, and recent left renal infarct dx 08/29/24 & started on Eliquis at that time. Presents to the ER with light headedness, abdominal pain, melena stools for several weeks, headache and left sided numbness and tingling. Noted to have hemoglobin of 9.6; was 12.7 in July 2024. In addition to the above she has had chronic GI complaints for some time - bloating, abdominal discomfort, etc. Last EGD was 05/2024 showing reflux esophagitis, gastritis and small hiatal hernia. PMH/PSH/allergies/meds/sochx - reviewed VSS, afebrile gen - looks tired, NAD skin - mild pallor mouth - MM dry neck - no JVD heart - RRR, s1 s2 lungs - CTA b/l abd - soft, mildly tender epigastric region, BS+, ND ext - no edema, pulses 2+ b/l feet labs reviewed imaging reviewed A/P: 1. acute blood loss anemia 2nd to presumed upper GI bleeding 2. likely upper GI bleeding - PUD? gastritis? small bowel source? 3. dizziness, lightheadedness - likely 2nd to #1, #2 4. recent left renal infarction, source/etiology uncertain 5. chronic SMA stenosis 6. chronic, various GI complaints -allow clears -IV PPI -GI consultation; timing of EGD? -gina Long asa -echo - r/o source of embolus for #4 Philipp Arriaga MD PG Care Time/CCT Total # of Minutes Spent Total Time Spent with Patient: Total time spent is greater than 50% in coordination of care (as documented) at patient's floor/unit and/or counseling patient: Coding Level of Care Code 85008 INT INP/OBS CARE 3/75MIN Diagnoses GI bleed K92.2 Mesenteric artery stenosis K55.1 Hypertension I10 Diabetes mellitus, type 2 E11.9
[2024-10-03 18:47] LABS: Iron 71.0 mcg/dl (35-150)
[2024-10-03 19:03] LABS: Thyroid Stimulating Hormone 1.68 uIu/ml (0.300-4.500)
[2024-10-03 19:08] LABS: Ferritin 67.8 ng/ml (8-388)
[2024-10-03 19:58] LABS: Folate (Folic Acid),Ser orPlas 21.68 ng/ml (>5.38)
[2024-10-03 19:59] LABS: Vitamin B12 449.0 pg/ml (180-914)
[2024-10-03] MEDS ORDERED: CARBOHYDRATES FOR HYPOGLYCEMIA PO PRN (20:50)
[2024-10-03] MEDS ORDERED: GLUCAGON FOR INJ 1 MG VIAL SQ PRN (20:50)
[2024-10-03] MEDS ORDERED: GLUCOSE 40% GEL 15 GM TUBE PO PRN (20:50)
[2024-10-03] MEDS ORDERED: DEXTROSE 50% 50 ML SYRINGE IV PRN (20:50)
[2024-10-03] MEDS ORDERED: GLUCOSE 10 TAB/TUBE PO PRN (20:50)
--- NOTE | 2024-10-03 21:28 | Gastrointestinal Consultation ---
Date of Consultation October 03, 2024 Assessment & Plan (1) GI bleed: Clinical picture consistent with upper GI bleed aggravated by anticoagulation. Symptoms suggestive of peptic ulcer disease. Recommend upper endoscopy Sunday. Hemodynamically stable. Need to be off Eliquis for 48 hours. Continue IV PPI. History of Present Illness Reason for Consultation: GI bleed Attending Physician: Philipp Arriaga MD History of Present Illness Patient presents to the hospital with a several day history of upper abdominal discomfort nausea and sudden onset of black tarry stool multiple episodes. 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 She has been started on Eliquis for this currently. 1 year ago she was treated with Ozempic and developed symptoms of gastroparesis as well as diarrhea. She stopped the medication after several weeks. But has continued to have some vague GI symptoms prior to this acute episode. Denies any use of alcohol, nonsteroidal anti-inflammatory drugs. No history of liver disease. Has a history of iron deficiency anemia and has been receiving iron infusions over the last several months. She has had a significant drop in her hemoglobin on this admission compared to this several weeks ago. Allergies Allergy/AdvReac Type Severity Reaction Status Date / Time adhesive tape Allergy Mild Rash Verified 09/29/24 13:45 duloxetine [From Cymbalta] Allergy Unknown Hives Verified 09/29/24 13:45 hydromorphone [From Dilaudid] AdvReac Severe Vomiting Verified 09/29/24 13:45 lisinopril AdvReac Intermediate Cough,bronc Verified 09/29/24 13:45 hospasm oxycodone [From Percocet] AdvReac Unknown Nausea Verified 09/29/24 13:45 Home Medications Medication Instructions Recorded Confirmed Type pen needle, diabetic 32 gauge x #120 ea 02/21/22 09/29/24 Rx 5/32" (BD Kay 2nd Gen Pen Needle) insulin glargine 100 unit/mL (3 34 unit (0.34 mL) subcut QAM #45 mL 10/24/23 10/03/24 Rx mL) subcutaneous pen (Basaglar KwikPen U-100 Insulin) blood sugar diagnostic (OneTouch #100 ea 12/27/23 09/29/24 Rx Ultra Test strips) diabetic supplies, miscellan. 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 Simplicity Tube Rebuilder) aspirin 81 mg tablet,delayed 81 mg PO DAILY 06/20/24 10/03/24 History release (Adult Aspirin Regimen) lifitegrast 5 % eye drops in a 1 drp ophthalmic (eye) BID 06/20/24 10/03/24 History dropperette (Xiidra) pantoprazole 40 mg tablet,delayed 40 mg PO DAILY 06/20/24 10/03/24 History release insulin lispro 100 unit/mL 18 - 60 unit subcut BIDWMEAL 08/29/24 10/03/24 History subcutaneous pen (Admelog SoloStar U-) [id number] 8 mg-folic 400 1 tab PO DAILY 08/29/24 10/03/24 History mcg-K 50 mcg-lutein 300 mcg tablet (Centrum Silver Women) ondansetron 4 mg disintegrating 4 mg PO Q4H PRN nausea and 08/29/24 10/03/24 Rx tablet vomiting 0 days #10 tabs tramadol 50 mg tablet 50 mg PO Q6H PRN pain #14 tabs 08/29/24 10/03/24 Rx olmesartan 20 mg tablet 20 mg PO DAILY #30 tabs 09/16/24 10/03/24 Rx apixaban 5 mg tablet 5 mg PO BID #180 tabs 09/29/24 10/03/24 Rx hydrochlorothiazide 12.5 mg capsule 12.5 mg PO DAILY #30 caps 09/29/24 10/03/24 Rx Patient History Medical History Noncompliance with medication regimen History of kidney stones History of depression History of bipolar disorder Diabetes mellitus, type 2 IBS (irritable bowel syndrome) Gastric intestinal metaplasia Fibromyalgia Hypertension Diabetic retinopathy Diabetic neuropathy COPD (chronic obstructive pulmonary disease) Coronary artery disease Hx of constipation History of diarrhea Hx of nausea and vomiting Carotid stenosis Left ventricular hypertrophy Aortic systolic murmur on examination Anemia Superior mesenteric artery stenosis Hiatal hernia Gastritis GERD (gastroesophageal reflux disease) Hemorrhoids History of Holter monitoring Chest pain syndrome Sleep apnea History of COVID-19 History of anesthesia reaction History of colon polyps Unstable angina Surgical History History of postoperative nausea and vomiting History of colonoscopy (12/2023) History of cardiac cath (~11/23/20) History of esophagogastroduodenoscopy (EGD) History of cataract surgery History of elbow surgery History of bladder surgery History of hysterectomy Family History Mother Diabetes Lung cancer Hypertension Father Diabetes Coronary heart disease S/P CABG (coronary artery bypass graft) Testicular cancer Hypertension Stroke Brother Prostate cancer Diabetes Family history of reaction to anesthesia Brother Prostate cancer Sister Diabetes Lung cancer Family history of reaction to anesthesia Sister Diabetes Autoimmune disease Kidney disease Stroke Grandmother (Paternal) Dementia Grandfather (Maternal) Myocardial infarction Grandmother (Maternal) Liver cancer Sister Diabetes Dementia Denies family history of Ovarian cancer Breast cancer Colorectal cancer Social History Smoking Status: Never smoker Second Hand Exposure: No; Do You Dip or Chew Tobacco: No; Hx Alcohol Use: No Hx Substance Use: No Preferred Language: Norwegian 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 Ability: Effective Visual Impairment: No Limitations 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: Normal Plant Chief Required: No Beliefs That Will Affect Care: None marital status: Current Living Situation: Spouse Current Living Situation Comment: and granddaughter current occupational status: retired Feels Safe at Home: Yes Childhood Exposure to Second-Hand Smoke: Yes (limited ) Diet: regular Diet Comment: regular caffeine: Yes during the past year weight has: remained stable Dental Care, Regularly: Yes Physical Activity Frequency: Daily Seatbelt Use: always Sunscreen Use: Yes Assistive Devices: None Review of Systems Review of Systems: No fever No chills No SOB No CP Epigastric abd pain nausea and diarrhea Physical Exam Physical Exam: Eyes; anicteric HENT No masses Chest clear to A Cor S1, S2 physiologic Abd: softer nontender no masses Ext no edema Results & Data Vital Signs (Past 12 Hours) Vital Signs Temp Pulse Pulse Resp BP BP Pulse Ox 10/03/24 19:43 52 L 14 144/60 H 97 10/03/24 19:34 53 L 10/03/24 17:27 68 20 134/88 98 10/03/24 16:09 67 20 161/58 H 97 10/03/24 15:45 54 L 10/03/24 15:37 96 10/03/24 15:19 55 L 20 175/73 H 97 10/03/24 15:19 96 10/03/24 15:07 36.6 C 62 20 187/71 H 97 O2 Del Method 10/03/24 19:43 Room Air 10/03/24 19:34 10/03/24 17:27 Room Air 10/03/24 16:09 Room Air 10/03/24 15:45 10/03/24 15:37 Room Air 10/03/24 15:19 Room Air 10/03/24 15:19 Room Air 10/03/24 15:07 Room Air Laboratory Results Laboratory Results - last 48 hr 10/03/24 10/03/24 10/03/24 15:24 15:33 16:12 WBC 5.62 RBC 3.18 L Hgb 9.6 L POC Hgb 9.5 L Hct 29.6 L POC Hct 28 L MCV 93.1 MCH 30.2 MCHC 32.4 RDW Std Deviation 58.5 H RDW Coeff of [place] 17.5 H Plt Count 189 MPV 10.3 Immature Gran % (Auto) 0.5 Neut % (Auto) 68.7 Lymph % (Auto) 21.4 Kern % (Auto) 6.4 Eos % (Auto) 2.1 Baso % (Auto) 0.9 Neut # (Auto) 3.86 Lymph # (Auto) 1.20 Kern # (Auto) 0.36 Eos # (Auto) 0.12 Baso # (Auto) 0.05 Immature Gran # (Auto) 0.03 PT 11.1 INR 1.0 APTT 29 PTT Ratio 1.1 POC Sodium 141 Sodium 140 POC Potassium 4.3 Potassium 4.2 POC Chloride 104 Chloride 105 Carbon Dioxide 28 POC Total CO2 26 Anion Gap 7 POC Anion Gap 16.0 POC BUN 22 H BUN 25 H Creatinine 0.85 POC Creatinine 0.9 Est Cr Clr Drug Dosing 64.6 eGFR 72.75 BUN/Creatinine Ratio 29.4 H Glucose 93 POC Glucose POC Glucose (other) 95 Calcium 9.1 POC Ioniz Calcium Rick 1.18 Iron 71 Ferritin 67.8 Total Bilirubin 0.4 AST 11 L ALT 14 Alkaline Phosphatase 44 Troponin I High Sens 5.4 Total Protein 6.8 Albumin 4.3 Globulin 2.5 Albumin/Globulin Ratio 1.7 Lipase 18 Vitamin B12 449 Folate 21.68 TSH 1.680 POC Stool Occult Blood Positive A Blood Type Antibody Screen 10/03/24 10/03/24 16:14 20:30 WBC RBC Hgb POC Hgb Hct POC Hct MCV MCH MCHC RDW Std Deviation RDW Coeff of Rolando Plt Count MPV Immature Gran % (Auto) Neut % (Auto) Lymph % (Auto) Kern % (Auto) Eos % (Auto) Baso % (Auto) Neut # (Auto) Lymph # (Auto) Kern # (Auto) Eos # (Auto) Baso # (Auto) Immature Gran # (Auto) PT INR APTT PTT Ratio POC Sodium Sodium POC Potassium Potassium POC Chloride Chloride Carbon Dioxide POC Total CO2 Anion Gap POC Anion Gap POC BUN BUN Creatinine POC Creatinine Est Cr Clr Drug Dosing eGFR BUN/Creatinine Ratio Glucose POC Glucose 77 POC Glucose (other) Calcium POC Ioniz Calcium Rick Iron Ferritin Total Bilirubin AST ALT Alkaline Phosphatase Troponin I High Sens Total Protein Albumin Globulin Albumin/Globulin Ratio Lipase Vitamin B12 Folate TSH POC Stool Occult Blood Blood Type O Positive Antibody Screen NEGATIVE Diagnostic Findings Abdomen/Pelvis CTA 10/03/24 15:30 Clinical history: Chest pain and shortness of breath Technique: Axial computed tomography images were obtained of the abdomen and pelvis after the administration of intravenous contrast according to the CT angiogram protocol Findings: The abdominal aorta appears unremarkable with no sign of aneurysm or dissection. No stenosis is seen involving it. There is mild plaque in the proximal celiac axis, without stenosis. There is a severe stenosis of the proximal superior mesenteric artery. The inferior mesenteric artery is patent as well. There is calcified plaque in the proximal right renal artery, without stenosis. There is an approximately 50% stenosis of the proximal left renal artery. The iliac arteries appear unremarkable with no sign of aneurysm or stenosis. The visualized common femoral arteries appear unremarkable as well The liver is overall of normal size, attenuation, and contour with no sign of cirrhosis or significant fatty infiltration. No liver mass lesion is seen. The portal vein is patent. The gallbladder appears unremarkable. No bile duct dilatation is noted. The spleen is of normal size. No focal splenic lesion is evident. The pancreas appears normal with no sign of acute or chronic pancreatitis and no mass lesion noted. The pancreatic duct is of normal caliber. The adrenal glands appear unremarkable. No definite renal or proximal ureteral calculi are seen on this contrast-enhanced study. There is no hydronephrosis or perinephric stranding. No renal mass lesion is identified. No adenopathy is seen. The stomach appears normal. There is no sign of small bowel obstruction. There is mild sigmoid diverticulosis without evidence of diverticulitis. There is no sign of appendicitis. No free intraperitoneal fluid or air is identified. No distal ureteral or bladder calculi are seen. No bladder mass lesion is evident. The uterus has been removed No fracture is identified. No focal osseous lesion is seen Impression: 1. No sign of abdominal aortic aneurysm or dissection 2. Severe SMA stenosis 3. Approximately 50% stenosis of the proximal left renal artery 4. Diverticulosis without evidence of diverticulitis ACT 112: Positive. There are findings on this exam that require communication between the performing entity and the patient following Patient Test Result Information Act ([place] ACT 112) guidelines. Electronically signed by Shane Barroso 10-03-2024 4:41 PM Chest CTA 10/03/24 15:30 Clinical history: Chest pain and shortness of breath Technique: Axial computed tomography images were obtained of the chest before and after the administration of intravenous contrast according to the CT angiogram protocol Findings: There is mild right middle lobe and lingular atelectasis. The lungs otherwise appear clear without infiltrate or mass. There is no pleural effusion or pneumothorax. There is no sign of pulmonary fibrosis or other diffuse interstitial process. No endobronchial lesion is seen There is no mediastinal, hilar, or axillary adenopathy. The thoracic aorta appears unremarkable with no sign of aneurysm or dissection. There is no pericardial effusion. There is coronary atherosclerosis. There is no definite sign of pulmonary embolism. The visualized upper abdomen appears unremarkable. No fracture is seen. No focal osseous lesion is evident Impression: 1. No sign of thoracic aortic aneurysm or dissection 2. No definite sign of pulmonary embolism 3. Essentially normal-appearing lungs Electronically signed by Shane Barroso 10-03-2024 4:[address] 10/03/24 15:30 Technique: Axial computed tomography images were obtained of the brain without intravenous contrast. Findings: There is diffuse cerebral atrophy, within expected limits for the patient's age. Areas of decreased attenuation are seen within the periventricular white matter, likely representing chronic small vessel ischemic disease. There is no definite sign of acute or old infarction. No intracranial hemorrhage is evident. No definite mass lesion is seen on this noncontrast examination. There is no midline shift or other form of herniation. No hydrocephalus is seen. No fracture is identified. The orbits and the visualized paranasal sinuses appear unremarkable. The mastoid air cells appear clear. Impression: 1. Cerebral atrophy and chronic small vessel ischemic disease 2. Otherwise unremarkable noncontrast CT of the brain Electronically signed by Shane Barroso 10-03-2024 4:25 PM Neck CTA 10/03/24 15:30 Technique: Axial computed tomography images were obtained of the neck after the administration of intravenous contrast according to the CT angiogram protocol Findings: There is an approximately 50% diameter stenosis of the mid left common carotid artery. There is a severe stenosis of the left carotid bulb with 70-80% diameter narrowing. There is an approximately 50% diameter stenosis of the right carotid bulb. There is a subsequent mild stenosis of the proximal right internal carotid artery with approximately 30% diameter narrowing. There is a severe stenosis of the proximal left external carotid artery. There is a mild stenosis at the origin of the right external carotid artery The vertebral arteries are patent bilaterally with no significant stenosis seen. The visualized thoracic aorta appears unremarkable. There is a mild stenosis at the origin of the left subclavian artery There is multilevel degenerative disc disease and osteoarthritis of the cervical spine. Impression: 1. Severe stenosis of the left carotid bulb 2. Approximately 50% stenosis of the mid left CCA 3. 50% stenosis of the right carotid bulb and mild stenosis of the proximal right ICA 4. Mild stenosis of the origin of the left subclavian artery 5. Severe stenosis of the proximal left ECA and mild stenosis of the proximal right ECA ACT 112: Positive. There are findings on this exam that require communication between the performing entity and the patient following Patient Test Result Information Act ([place] ACT 112) guidelines. Electronically signed by Shane Barroso 10-03-2024 4:32 PM Head CTA 10/03/24 15:41 Technique: Axial computed tomography images were obtained of the brain after the administration of intravenous contrast according to the CT angiogram protocol Findings: There is calcified plaque within the cavernous and supraclinoid segments of the internal carotid arteries bilaterally, without stenosis No definite stenosis or aneurysm is seen of the anterior, middle, or posterior cerebral artery circulations. The basilar artery appears diffusely small, which could be due to normal variation. No definite focal stenosis is seen. Posterior communicating arteries are present bilaterally Impression: No definite stenosis or aneurysm of the intracranial arteries Electronically signed by Shane Barroso 10-03-2024 4:27 PM PG Care Time/CCT Total # of Minutes Spent Total Time Spent with Patient: Total time spent is greater than 50% in coordination of care (as documented) at patient's floor/unit and/or counseling patient: Coding Level of Care Code 22024 INT INP/OBS CARE 2MIN Diagnoses GI bleed K92.2
[2024-10-03] MEDS: INSULIN ASPART PER UNIT CHARGE SC SCH (21:53)
[2024-10-03] MEDS: PANTOprazole 40 MG/10 ML SYR IV SCH (22:18)
[2024-10-04] MEDS: MoRPHine SULFATE 2 MG/ML CARP IV STA (06:08)
--- NOTE | 2024-10-04 06:28 | Gastroenterology Progress Note ---
Date of Service October 04, 2024 Assessment & Plan (1) GI bleed: Plan: Clinical picture consistent with upper GI bleed. Clinically resolving in light of lack of recent melena. Continue PPI. Plan for endoscopy on Sunday. Admission and Anticipated Discharge Date Admission Date: October 03, 2024 Subjective Resting comfortably no shortness of breath no chest pain mild epigastric discomfort no recent bowel movements Physical Exam Physical Exam: No acute distress Respiratory rate regular Cardiac rhythm regular Abdomen soft nontender Results & Data Results & Data Vital Signs (Past 12 Hours) Vital Signs Temp Pulse Pulse Pulse Resp BP BP 10/04/24 03:00 36.6 C 65 15 139/66 10/03/24 22:55 10/03/24 22:55 36.3 C L 76 20 188/55 H 10/03/24 22:44 36.4 C L 57 L 18 114/61 10/03/24 21:53 51 L 10/03/24 20:25 61 10/03/24 19:43 52 L 14 144/60 H 10/03/24 19:34 53 L Pulse Ox O2 Del Method 10/04/24 03:00 96 Room Air 10/03/24 22:55 Room Air 10/03/24 22:55 98 Room Air 10/03/24 22:44 98 Room Air 10/03/24 21:53 10/03/24 20:25 10/03/24 19:43 97 Room Air 10/03/24 19:34 PG Care Time/CCT Total # of Minutes Spent Total Time Spent with Patient: Total time spent is greater than 50% in coordination of care (as documented) at patient's floor/unit and/or counseling patient: Coding Level of Care Code 56508 SUB INP/OBS CARE 2/35MIN Diagnoses GI bleed K92.2
--- NOTE | 2024-10-04 07:18 | Hospitalist Progress Note ---
"Date of Service October 04, 2024 Assessment & Plan (1) GI bleed: (2) Mesenteric artery stenosis: (3) Hypertension: (4) Diabetes mellitus, type 2: Plan Patient is a 74-year-old female presented with abdominal pain and melena on eliquis. 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 initial evaluation reveals hemoglobin 9.6 with mild elevation of BUN. No electrolyte abnormalities. CT A/P severe SMA stenosis and approximately 50% stenosis of the proximal left renal artery. Chest CTA without PE. Admitted for GI evaluation and futher workup. #GI Bleed | Anemia Slow drop in hgb since starting Eliquis 12.7-->10.7--> 9.6 on admission hx of Fe defiency with recent venofer x3 in July Heme + stool in ER Normocytic anemia - check B12/folate/iron studies/ tsh for completeness Consult GI plan for endoscopy on 10/06/2024 Full liquid diet until n.p.o. with endoscopy continue twice daily PPI Parenteral opiates required due to significance of pain #Mesenteric artery stenosis | renal artery stenosis Follows closely with vascular and nephrology - at this time vascular intervention has been deferred due to risk/benefits Hold Eliquis and ASA for now - other PAD noted on intake imaging Question if GI bleeding is from ischemic enteritis. #HTN Continue Olmesartan (or formulary equivalent) Hold HCTZ with poor PO intake #DM 2 with end organ damage, gastroparesis noted Home Regimen: Lantus 34 Unit + meal time - HELD AM Hgb A1c Lantus 20 Units + SSI #Headache | Numbness and tingling - left side acute stroke ruled out by Ct Patient reports compliance with Eliquis and symptoms improving. Continue to monitor, defer brain MRI at this time. Head/neck CT with multiple areas of severe stenosis DVT proh: SCDs, home ELiquis held Admission and Anticipated Discharge Date Admission Date: October 03, 2024 Subjective Patient persists with abdominal pain crescendo decrescendo worse after she has sips of clears scheduled for an upper GI endoscopy on 10 06 has had no further bowel movements. Review of Systems Review of Systems: Abdomen is with normal active bowel sounds. She is tender in epigastrium and also the left mid abdomen. She is not guarding there is no rebound Results & Data Results & Data Vital Signs (Past 12 Hours) Vital Signs Temp Pulse Pulse Pulse Resp BP BP 10/04/24 06:15 57 L 10/04/24 03:00 97.9 F 65 15 139/66 10/03/24 22:55 10/03/24 22:55 97.3 F L 76 20 188/55 H 10/03/24 22:44 97.5 F L 57 L 18 114/61 10/03/24 21:53 51 L 10/03/24 20:25 61 10/03/24 19:43 52 L 14 144/60 H 10/03/24 19:34 53 L Pulse Ox O2 Del Method 10/04/24 06:15 10/04/24 03:00 96 Room Air 10/03/24 22:55 Room Air 10/03/24 22:55 98 Room Air 10/03/24 22:44 98 Room Air 10/03/24 21:53 10/03/24 20:25 10/03/24 19:43 97 Room Air 10/03/24 19:34 Laboratory Results Reviewed CBC anemia is mild Reviewed chemistry PG Care Time/CCT Total # of Minutes Spent Total Time Spent with Patient: Total time spent is greater than 50% in coordination of care (as documented) at patient's floor/unit and/or counseling patient: Coding Level of Care Code 87839 SUB INP/OBS CARE 3/50MIN Diagnoses GI bleed K92.2 Mesenteric artery stenosis K55.1 Hypertension I10 Diabetes mellitus, type 2 E11.9"
[2024-10-04 07:55] LABS: Hematocrit (blood only) 29.1 % (37.0-47.0); Hemoglobin 9.6 g/dl (12.0-16.0); Mean Corpuscular Hemoglobin 30.9 pg (25.0-34.0); Mean Corpuscular Volume 93.6 fL (80.0-100.0); Platelet Count 187 K/uL (130-400); RDW Standard Deviation 59.1 fL (36.4-46.3); Red Blood Count 3.11 M/uL (4.20-5.40); White Blood Count 4.19 K/ul (4.8-10.8)
[2024-10-04 07:55] LABS: Appearance Urine Clear (Clear); Bacteria Urine Automated 1+ (None Seen); Glucose Urine UA Negative (Negative); RBC Urine Automated 0-2 /hpf (0-2); WBC Urine Automated 21-50 /hpf (0-5)
[2024-10-04 08:10] LABS: Hemoglobin A1C 6.4 % (4.5-5.6)
[2024-10-04 08:12] LABS: Anion Gap 5.0 (3-11); Blood Urea Nitrogen 17.0 mg/dl (6-23); Calcium 8.8 mg/dl (8.6-10.3); Carbon Dioxide 29.0 mmol/L (21-32); Chloride 107.0 mmol/L (98-107); Creatinine Clr Calc Pharmacy 71.1 ml/min; Glucose 106.0 mg/dl (70-99(Fasting)); Potassium 4.3 mmol/L (3.5-5.1); Sodium 141.0 mmol/L (136-145)
[2024-10-04] MEDS: LANTUS PER UNIT CHARGE SQ SCH (08:50)
[2024-10-04] MEDS: LOSARTAN POTASSIUM 50 MG TAB PO SCH (08:51)
--- NOTE | 2024-10-04 12:31 | XCELERA ---
[id number]\[id number]
[2024-10-04] MEDS: ONDANSETRON INJ 2 MG/ML 2 ML VIAL IV PRN (13:29)
[2024-10-04] MEDS: POLYETHYLENE (MIRALAX) 17 GM PACK PO ONE (15:03)
--- NOTE | 2024-10-05 07:32 | Hospitalist Progress Note ---
"Date of Service October 05, 2024 Assessment & Plan (1) GI bleed: (2) Mesenteric artery stenosis: (3) Hypertension: (4) Diabetes mellitus, type 2: Plan Patient is a 74-year-old female presented with abdominal pain and melena on eliquis. 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 initial evaluation reveals hemoglobin 9.6 with mild elevation of BUN. No electrolyte abnormalities. CT A/P severe SMA stenosis and approximately 50% stenosis of the proximal left renal artery. Chest CTA without PE. Admitted for GI evaluation and futher workup. #GI Bleed | Anemia Slow drop in hgb since starting Eliquis 12.7-->10.7--> 9.6 on admission hx of Fe defiency with recent venofer x3 in July Heme + stool in ER Normocytic anemia -iron B12 folate TSH normal Consult GI plan for endoscopy on 10/06/2024 Full liquid diet until n.p.o. with endoscopy continue twice daily PPI Parenteral opiates required due to significance of pain #Mesenteric artery stenosis | renal artery stenosis Follows closely with vascular and nephrology - at this time vascular interven tion has been deferred due to risk/benefits Hold Eliquis and ASA for now - other PAD noted on intake imaging Question if GI bleeding is from ischemic enteritis. #HTN Continue Olmesartan (or formulary equivalent) Hold HCTZ with poor PO intake #DM 2 with end organ damage, gastroparesis noted Home Regimen: Lantus 34 Unit + meal time - HELD AM Hgb A1c Lantus 20 Units + SSI #Headache | Numbness and tingling - left side acute stroke ruled out by Ct Patient reports compliance with Eliquis and symptoms improving. Continue to monitor, defer brain MRI at this time. Head/neck CT with multiple areas of severe stenosis Headache improved that the patient had caffeine DVT proh: SCDs, home ELiquis held Admission and Anticipated Discharge Date Admission Date: October 03, 2024 Subjective Patient still with abdominal pain and bloating this was not exacerbated by drinking liquids. Plans for upper endoscopy on 10/06. Having some bowel movements Physical Exam Physical Exam: Physical exam she appears in mild distress Abdomen is with bowel sounds present appear to be normal active uncomfortable to examination Results & Data Results & Data Vital Signs (Past 12 Hours) Vital Signs Temp Pulse Pulse Resp BP Pulse Ox O2 Del Method 10/05/24 05:34 58 L 10/05/24 03:23 98.1 F 57 L 20 178/62 H 95 Room Air 10/04/24 23:23 98.1 F 59 L 20 124/67 96 Room Air 10/04/24 21:46 55 L 10/04/24 19:48 97.9 F 56 L 18 155/78 H 97 Room Air PG Care Time/CCT Total # of Minutes Spent Total Time Spent with Patient: Total time spent is greater than 50% in coordination of care (as documented) at patient's floor/unit and/or counseling patient: Coding Level of Care Code 52456 SUB INP/OBS CARE 2/35MIN Diagnoses GI bleed K92.2 Mesenteric artery stenosis K55.1 Hypertension I10 Diabetes mellitus, type 2 E11.9"
--- NOTE | 2024-10-05 08:41 | Gastroenterology Progress Note ---
Date of Service October 05, 2024 Assessment & Plan (1) GI bleed: Plan: Hemodynamically stable no significant bleeding at the present time. Will proceed with endoscopy in a.m. Continue PPI. Admission and Anticipated Discharge Date Admission Date: October 03, 2024 Subjective Still with upper abdominal discomfort no shortness of breath no chest pain no overt bleeding Physical Exam Physical Exam: No acute distress Respiratory rate regular Cardiac rhythm regular Abdomen soft nontender Results & Data Results & Data Vital Signs (Past 12 Hours) Vital Signs Temp Pulse Pulse Resp BP Pulse Ox O2 Del Method 10/05/24 07:33 36.6 C 58 L 18 162/74 H 95 Room Air 10/05/24 05:34 58 L 10/05/24 03:23 36.7 C 57 L 20 178/62 H 95 Room Air 10/04/24 23:23 36.7 C 59 L 20 124/67 96 Room Air 10/04/24 21:46 55 L PG Care Time/CCT Total # of Minutes Spent Total Time Spent with Patient: Total time spent is greater than 50% in coordination of care (as documented) at patient's floor/unit and/or counseling patient: Coding Level of Care Code 82049 SUB INP/OBS CARE 2/35MIN Diagnoses GI bleed K92.2
[2024-10-05] MEDS: MoRPHine SULFATE 2 MG/ML CARP IV PRN (08:43)
--- NOTE | 2024-10-05 13:37 | Electrocardiogram Report ---
Test Reason : Blood Pressure : */* mmHG Vent. Rate : 55 BPM Atrial Rate : 55 BPM P-R Int : 142 ms QRS Dur : 86 ms QT Int : 440 ms P-R-T Axes : 61 1 119 degrees QTcB Int : 420 ms Sinus bradycardia Left ventricular hypertrophy with repolarization abnormality ( R in aVL ) Abnormal ECG When compared with ECG of 29-Aug-2024 15:13, No significant change was found Confirmed by Emmett Osuna ([id number]) on 10/05/2024 1:37:20 PM Referred By: REFERRED SELF Confirmed By: Emmett Osuna
[2024-10-05] MEDS: ACETAMINOPHEN 325 MG TAB PO PRN (14:48)
[2024-10-06 06:18] LABS: Hematocrit (blood only) 29.1 % (37.0-47.0); Hemoglobin 9.6 g/dl (12.0-16.0); Mean Corpuscular Hemoglobin 31.1 pg (25.0-34.0); Mean Corpuscular Volume 94.2 fL (80.0-100.0); Platelet Count 159 K/uL (130-400); RDW Standard Deviation 58.2 fL (36.4-46.3); Red Blood Count 3.09 M/uL (4.20-5.40); White Blood Count 3.84 K/ul (4.8-10.8)
[2024-10-06 06:37] LABS: Anion Gap 6.0 (3-11); Blood Urea Nitrogen 9.0 mg/dl (6-23); Calcium 8.7 mg/dl (8.6-10.3); Carbon Dioxide 28.0 mmol/L (21-32); Chloride 107.0 mmol/L (98-107); Creatinine Clr Calc Pharmacy 70.2 ml/min; Glucose 102.0 mg/dl (70-99(Fasting)); Potassium 4.0 mmol/L (3.5-5.1); Sodium 141.0 mmol/L (136-145)
--- NOTE | 2024-10-06 07:22 | Hospitalist Progress Note ---
"Date of Service October 06, 2024 Assessment & Plan (1) GI bleed: (2) Mesenteric artery stenosis: (3) Hypertension: (4) Diabetes mellitus, type 2: Plan Patient is a 74-year-old female presented with abdominal pain and melena on eliquis. 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 initial evaluation reveals hemoglobin 9.6 with mild elevation of BUN. No electrolyte abnormalities. CT A/P severe SMA stenosis and approximately 50% stenosis of the proximal left renal artery. Chest CTA without PE. Admitted for GI evaluation and futher workup. #GI Bleed | Anemia Slow drop in hgb since starting Eliquis 12.7-->10.7--> 9.6 on admission hx of Fe defiency with recent venofer x3 in July Heme + stool in ER Normocytic anemia -iron B12 folate TSH normal Consult GI plan for endoscopy on 10/06/2024 n.p.o. with endoscopy continue twice daily PPI Parenteral opiates required due to significance of pain #Mesenteric artery stenosis | renal artery stenosis Follows closely with vascular and nephrology - at this time vascular intervention has been deferred due to risk/benefits Hold Eliquis and ASA for now - other PAD noted on intake imaging Question if GI bleeding is from ischemic enteritis. #HTN Continue Olmesartan (or formulary equivalent) Hold HCTZ with poor PO intake #DM 2 with end organ damage, gastroparesis noted Home Regimen: Lantus 34 Unit + meal time - HELD Hgb A1c 6.4 Lantus + SSI #Headache | Numbness and tingling - left side acute stroke ruled out by Ct Patient reports compliance with Eliquis and symptoms improving. Continue to monitor, defer brain MRI at this time. Head/neck CT with multiple areas of severe stenosis Headache improved that the patient had caffeine DVT proh: SCDs, home ELiquis held Admission and Anticipated Discharge Date Admission Date: October 03, 2024 Subjective Patient still with lessened abdominal pain and resolution of bloating but she has been n.p.o. after midnight due to plans for upper endoscopy on 10/06. Having some bowel movements and increased this flatus Physical Exam Physical Exam: Physical exam she appears in mild distress Abdomen is with bowel sounds present appear to be normal active uncomfortable to examination Results & Data Results & Data Vital Signs (Past 12 Hours) Vital Signs Temp Pulse Pulse Resp BP Pulse Ox O2 Del Method 10/06/24 06:54 54 L 10/06/24 03:23 97.7 F 56 L 18 136/54 L 97 Room Air 10/05/24 23:06 98.1 F 62 18 139/76 97 Room Air 10/05/24 21:14 97.7 F 66 18 160/74 H 95 Room Air 10/05/24 20:05 Room Air 10/05/24 20:04 72 Laboratory Results Review CBC reviewed chemistry PG Care Time/CCT Total # of Minutes Spent Total Time Spent with Patient: Total time spent is greater than 50% in coordination of care (as documented) at patient's floor/unit and/or counseling patient: Coding Level of Care Code 43541 SUB INP/OBS CARE 2/35MIN Diagnoses GI bleed K92.2 Mesenteric artery stenosis K55.1 Hypertension I10 Diabetes mellitus, type 2 E11.9"
--- NOTE | 2024-10-06 09:16 | History & Physical Bridge Note ---
Date of Service October 06, 2024 History & Physical Bridge Note I have examined the patient, reviewed the History & Physical and in the interval since the performance of the History & Physical I have noted the following changes of clinical significance: no changes noted H/H 9.6/29.1. No overt bleeding at present. Keep NPO & proceed with EGD today. Supervising Physician Co-Signing Physician Notes I saw and examined this patient with our nurse practitioner and agree with her assessment and plan. Hemodynamically stable no overt bleeding. Plan for endoscopy today.
[2024-10-06] MEDS: LANTUS PER UNIT CHARGE SQ ONE (09:44)
[2024-10-06] MEDS: SODIUM CHLORIDE 0.9% 500 ML IV SCH (13:16)
--- NOTE | 2024-10-06 13:31 | Anesthesiology Consultation ---
Date of Service October 06, 2024 Assessment & Plan Consults Requested medical & cardiac Pulmonary ASA ASA3 Proposed Anesthesia Anesthesia Type: MAC Risk / Benefits Reviewed With: PT / POA / Parent / Guardian, Accepts Plan and Informed Consent Obtained History Surgery Operation Date: 10/06/24 17:10 Proposed Procedures p Esophagogastroduodenoscopy Dr. Randy Padilla MD Pt with melenal and decrease in H/H from 12 hgb to ~9 on admission. Height/Weight Height: 5 ft 3 in Weight: 94.1 kg Allergies Allergy/AdvReac Type Severity Reaction Status Date / Time adhesive tape Allergy Mild Rash Verified 09/29/24 13:45 duloxetine [From Cymbalta] Allergy Unknown Hives Verified 09/29/24 13:45 hydromorphone [From Dilaudid] AdvReac Severe Vomiting Verified 09/29/24 13:45 lisinopril AdvReac Intermediate Cough,bronc Verified 09/29/24 13:45 hospasm oxycodone [From Percocet] AdvReac Unknown Nausea Verified 09/29/24 13:45 Medications Home Medications Medication Instructions Recorded Confirmed Last Taken pen needle, diabetic 32 gauge x #120 ea 02/21/22 09/29/24 Unknown 32" (BD Kay 2nd Gen Pen Needle) insulin glargine 100 unit/mL (3 34 unit (0.34 mL) subcut QAM #45 mL 10/24/23 10/03/24 08/29/24 mL) subcutaneous pen (Basaglar KwikPen U-100 Insulin) blood sugar diagnostic (OneTouch #100 ea 12/27/23 09/29/24 Unknown Ultra Test strips) diabetic supplies, [employer]. #1 ea 02/11/24 09/29/24 Unknown (CeQur Simplicity Wind Project Manager) aspirin 81 mg tablet,delayed 81 mg PO DAILY 06/20/24 10/03/24 08/28/24 release (Adult Aspirin Regimen) lifitegrast 5 % eye drops in a 1 drp ophthalmic (eye) BID 06/20/24 10/03/24 08/29/24 dropperette (Xiidra) pantoprazole 40 mg tablet,delayed 40 mg PO DAILY 06/20/24 10/03/24 08/29/24 release insulin lispro 100 unit/mL 18 - 60 unit subcut BIDWMEAL 08/29/24 10/03/24 08/29/24 subcutaneous pen (Admelog SoloStar U-) [id number] 8 mg-folic 400 1 tab PO DAILY 08/29/24 10/03/24 08/29/24 mcg-K 50 mcg-lutein 300 mcg tablet (Centrum Silver Women) ondansetron 4 mg disintegrating 4 mg PO Q4H PRN nausea and 08/29/24 10/03/24 Unknown tablet vomiting 0 days #10 tabs tramadol 50 mg tablet 50 mg PO Q6H PRN pain #14 tabs 08/29/24 10/03/24 Unknown olmesartan 20 mg tablet 20 mg PO DAILY #30 tabs 09/16/24 10/03/24 Unknown apixaban 5 mg tablet 5 mg PO BID #180 tabs 09/29/24 10/03/24 Unknown hydrochlorothiazide 12.5 mg capsule 12.5 mg PO DAILY #30 caps 09/29/24 10/03/24 Unknown Active Medications Generic Name Dose Route Start Last Admin Trade Name Freq PRN Reason Stop Dose Admin Acetaminophen 650 mg 10/03/24 20:50 10/05/24 14:48 Acetaminophen 325 Mg Tab PO 11/02/24 20:49 650 mg Q4H PRN Administration Pain or Fever Pantoprazole Sodium 40 mg in 10 mls @ 5 mls/min 10/03/24 21:00 10/06/24 09:11 Protonix IV 11/02/24 20:59 5 mls/min BID CARMEN Administration Sodium Chloride 500 mls @ 15 mls/hr 10/06/24 07:30 10/06/24 13:16 Nss IV 10/07/24 07:29 15 mls/hr .Q24H CARMEN Administration Insulin Aspart 0 units 10/03/24 21:00 10/06/24 12:45 Insulin Aspart Per Unit Charge SC 11/02/24 20:59 Not Given ACHS CARMEN Insulin Glargine 20 units 10/04/24 09:00 10/06/24 09:38 Lantus Per Unit Charge SQ 11/03/24 08:59 Not Given QAM CARMEN Losartan Potassium 50 mg 10/04/24 09:00 10/06/24 09:11 Losartan Potassium 50 Mg Tab PO 11/03/24 08:59 50 mg DAILY CARMEN Administration Morphine Sulfate 2 mg 10/04/24 11:46 10/05/24 08:43 Morphine Sulfate 2 Mg/Ml Carp IV 10/18/24 11:45 2 mg Q4 PRN Administration Moderate Pain (Scale 4, 5, 6) Ondansetron HCl 4 mg 10/03/24 20:50 10/05/24 08:43 Ondansetron Inj 2 Mg/Ml 2 Ml Vial IV 11/02/24 20:49 4 mg Q6H PRN Administration Nausea NPO Date Last Intake of Fluids: 10/06/24 Time Last Intake of Fluids: 07:00 Last Intake of Fluids Comment: sip of water with Cozaar Date Last Intake of Solids: 10/01/24 Time Last Intake of Solids: 08:00 Last Intake of Solids Comment: slice of toast Past Medical History Medical History Noncompliance with medication regimen History of kidney stones History of depression History of bipolar disorder Diabetes mellitus, type 2 IBS (irritable bowel syndrome) Gastric intestinal metaplasia Fibromyalgia Hypertension Diabetic retinopathy Diabetic neuropathy COPD (chronic obstructive pulmonary disease) Coronary artery disease Hx of constipation History of diarrhea Hx of nausea and vomiting Carotid stenosis Left ventricular hypertrophy Aortic systolic murmur on examination Anemia Superior mesenteric artery stenosis Hiatal hernia Gastritis GERD (gastroesophageal reflux disease) Hemorrhoids History of Holter monitoring Chest pain syndrome Sleep apnea History of COVID-19 History of anesthesia reaction History of colon polyps Unstable angina Exercise / Class Metabolic Activity II 4-5 Yardwork/Stairs/Walk up hill Past Family History Family History Mother Diabetes Lung cancer Hypertension Father Diabetes Coronary heart disease S/P CABG (coronary artery bypass graft) Testicular cancer Hypertension Stroke Brother Prostate cancer Diabetes Family history of reaction to anesthesia Brother Prostate cancer Sister Diabetes Lung cancer Family history of reaction to anesthesia Sister Diabetes Autoimmune disease Kidney disease Stroke Grandmother (Paternal) Dementia Grandfather (Maternal) Myocardial infarction Grandmother (Maternal) Liver cancer Sister Diabetes Dementia Denies family history of Ovarian cancer Breast cancer Colorectal cancer Past Surgical History Surgical History History of postoperative nausea and vomiting History of colonoscopy (12/2023) History of cardiac cath (~11/23/20) History of esophagogastroduodenoscopy (EGD) History of cataract surgery History of elbow surgery History of bladder surgery History of hysterectomy Past Anesthesia History No Hx of Anesthesia Complications and No Family Hx of Anesthesia Complications History of PONV No Hx of Motion Sickness and History of PONV Social History Smoking Status: Never smoker Do You Dip or Chew Tobacco: No Hx Alcohol Use: Yes alcohol intake frequency: holidays/special occasions only Hx Substance Use: No substance use type: does not use Physical Exam Vital Signs Last Vital Signs Temp 36.1 C L 10/06/24 13:04 Pulse 56 L 10/06/24 13:04 Resp 18 10/06/24 13:04 BP 208/65 H 10/06/24 13:04 Pulse Ox 98 10/06/24 13:04 O2 Del Method Room Air 10/06/24 13:04 Constitutional no acute distress ENMT Mouth: no dentition abnormality Thyromental Distance: > or= 3.5 Finger Breadths Mallampati Class: III Neck normal visual inspection Respiratory normal respiratory effort; no respiratory distress Auscultation: lungs clear to auscultation bilaterally Cardiovascular Rate/Rhythm: regular rate and regular rhythm Heart Sounds: no murmur Musculoskeletal Spine: normal cervical ROM Psychiatric Orientation: alert and oriented x 3 Testing Laboratory Results 10/06/24 05:41 10/06/24 05:41 PT 11.1 Seconds (9.0-12.0) 10/03/24 15:33 INR 1.0 (0.9-1.1) 10/03/24 15:33 APTT 29 Seconds (21-31) 10/03/24 15:33 Hemoglobin A1c 6.4 % (4.5-5.6) H 10/04/24 07:23 Urine Color Yellow 10/04/24 06:55 Urine Appearance Clear (Clear) 10/04/24 06:55 Urine pH 5.0 (4.5-7.5) 10/04/24 06:55 Ur Specific [place] 1.027 (1.000-1.030) 10/04/24 06:55 Urine Protein Negative (Negative) 10/04/24 06:55 Urine Glucose (UA) Negative (Negative) 10/04/24 06:55 Urine Ketones Negative (Negative) 10/04/24 06:55 Urine Nitrite Negative (Negative) 10/04/24 06:55 Ur Leukocyte Esterase 2+ (Negative) H 10/04/24 06:55 Urine WBC (Auto) 21-50 /hpf (0-5) H 10/04/24 06:55 Urine RBC (Auto) 0-2 /hpf (0-2) 10/04/24 06:55 U Hyaline Cast (Auto) 3-5 /lpf (0-2) H 10/04/24 06:55 U Epithel Cells (Auto) 6-10 /hpf (0-2) H 10/04/24 06:55 Urine Bacteria (Auto) 1+ (None Seen) H 10/04/24 06:55 Blood Type O Positive 10/03/24 16:14 Antibody Screen NEGATIVE 10/03/24 16:14 10/04/24 06:55 Urine Culture - Final Urine,Clean Catch More than three types of organisms present, all high counts mixed probable skin manuel - No further identifications or sensitivities to follow. 10/06/24 10/06/24 12:17 08:19 POC Glucose 122 H 121 H Day of Procedure Evaluation. Date of Surgery October 06, 2024 Height/Weight Height: 5 ft 3 in Weight: 94.1 kg Vital Signs Last Vital Signs Temp 36.1 C L 10/06/24 13:04 Pulse 56 L 10/06/24 13:04 Resp 18 10/06/24 13:04 BP 208/65 H 10/06/24 13:04 Pulse Ox 98 10/06/24 13:04 O2 Del Method Room Air 10/06/24 13:04 Allergies Allergy/AdvReac Type Severity Reaction Status Date / Time adhesive tape Allergy Mild Rash Verified 09/29/24 13:45 duloxetine [From Cymbalta] Allergy Unknown Hives Verified 09/29/24 13:45 hydromorphone [From Dilaudid] AdvReac Severe Vomiting Verified 09/29/24 13:45 lisinopril AdvReac Intermediate Cough,bronc Verified 09/29/24 13:45 hospasm oxycodone [From Percocet] AdvReac Unknown Nausea Verified 09/29/24 13:45 Medications Home Medications Medication Instructions Recorded Confirmed Last Taken pen needle, diabetic 32 gauge x #120 ea 02/21/22 09/29/24 Unknown " (BD Kay 2nd Gen Pen Needle) insulin glargine 100 unit/mL (3 34 unit (0.34 mL) subcut QAM #45 mL 10/24/23 10/03/24 08/29/24 mL) subcutaneous pen (Basaglar KwikPen U-100 Insulin) blood sugar diagnostic (OneTouch #100 ea 12/27/23 09/29/24 Unknown Ultra Test strips) diabetic supplies, [employer]. #1 ea 02/11/24 09/29/24 Unknown (CeQur Simplicity Wind Project Manager) aspirin 81 mg tablet,delayed 81 mg PO DAILY 06/20/24 10/03/24 08/28/24 release (Adult Aspirin Regimen) lifitegrast 5 % eye drops in a 1 drp ophthalmic (eye) BID 06/20/24 10/03/24 08/29/24 dropperette (Xiidra) pantoprazole 40 mg tablet,delayed 40 mg PO DAILY 06/20/24 10/03/24 08/29/24 release insulin lispro 100 unit/mL 18 - 60 unit subcut BIDWMEAL 08/29/24 10/03/24 08/29/24 subcutaneous pen (Admelog SoloStar U-) [id number]-[id number]-igsg 8 mg-folic 400 1 tab PO DAILY 08/29/24 10/03/24 08/29/24 mcg-K 50 mcg-lutein 300 mcg tablet (Centrum Silver Women) ondansetron 4 mg disintegrating 4 mg PO Q4H PRN nausea and 08/29/24 10/03/24 Unknown tablet vomiting 0 days #10 tabs tramadol 50 mg tablet 50 mg PO Q6H PRN pain #14 tabs 08/29/24 10/03/24 Unknown olmesartan 20 mg tablet 20 mg PO DAILY #30 tabs 09/16/24 10/03/24 Unknown apixaban 5 mg tablet 5 mg PO BID #180 tabs 09/29/24 10/03/24 Unknown hydrochlorothiazide 12.5 mg capsule 12.5 mg PO DAILY #30 caps 09/29/24 10/03/24 Unknown Active Medications Generic Name Dose Route Start Last Admin Trade Name Freq PRN Reason Stop Dose Admin Acetaminophen 650 mg 10/03/24 20:50 10/05/24 14:48 Acetaminophen 325 Mg Tab PO 11/02/24 20:49 650 mg Q4H PRN Administration Pain or Fever Pantoprazole Sodium 40 mg in 10 mls @ 5 mls/min 10/03/24 21:00 10/06/24 09:11 Protonix IV 11/02/24 20:59 5 mls/min BID CARMEN Administration Sodium Chloride 500 mls @ 15 mls/hr 10/06/24 07:30 10/06/24 13:16 Nss IV 10/07/24 07:29 15 mls/hr .Q24H CARMEN Administration Insulin Aspart 0 units 10/03/24 21:00 10/06/24 12:45 Insulin Aspart Per Unit Charge SC 11/02/24 20:59 Not Given ACHS CARMEN Insulin Glargine 20 units 10/04/24 09:00 10/06/24 09:38 Lantus Per Unit Charge SQ 11/03/24 08:59 Not Given QAM CARMEN Losartan Potassium 50 mg 10/04/24 09:00 10/06/24 09:11 Losartan Potassium 50 Mg Tab PO 11/03/24 08:59 50 mg DAILY CARMEN Administration Morphine Sulfate 2 mg 10/04/24 11:46 10/05/24 08:43 Morphine Sulfate 2 Mg/Ml Carp IV 10/18/24 11:45 2 mg Q4 PRN Administration Moderate Pain (Scale 4, 5, 6) Ondansetron HCl 4 mg 10/03/24 20:50 10/05/24 08:43 Ondansetron Inj 2 Mg/Ml 2 Ml Vial IV 11/02/24 20:49 4 mg Q6H PRN Administration Nausea Past Anesthesia History No Hx of Anesthesia Complications and No Family Hx of Anesthesia Complications History of PONV No Hx of Motion Sickness and History of PONV NPO Date Last Intake of Fluids: 10/06/24 Time Last Intake of Fluids: 07:00 Last Intake of Fluids Comment: sip of water with Cozaar Date Last Intake of Solids: 10/01/24 Time Last Intake of Solids: 08:00 Last Intake of Solids Comment: slice of toast HCG & FBG Results 10/06/24 10/06/24 12:17 08:19 POC Glucose 122 H 121 H Home Medications Home Medications Medication Instructions Recorded Confirmed Last Taken pen needle, diabetic 32 gauge x #120 ea 02/21/22 09/29/24 Unknown " (BD Kay 2nd Gen Pen Needle) insulin glargine 100 unit/mL (3 34 unit (0.34 mL) subcut QAM #45 mL 10/24/23 10/03/24 08/29/24 mL) subcutaneous pen (Basaglar KwikPen U-100 Insulin) blood sugar diagnostic (OneTouch #100 ea 12/27/23 09/29/24 Unknown Ultra Test strips) diabetic supplies, [employer]. #1 ea 02/11/24 09/29/24 Unknown (CeQur Simplicity Wind Project Manager) aspirin 81 mg tablet,delayed 81 mg PO DAILY 06/20/24 10/03/24 08/28/24 release (Adult Aspirin Regimen) lifitegrast 5 % eye drops in a 1 drp ophthalmic (eye) BID 06/20/24 10/03/24 08/29/24 dropperette (Xiidra) pantoprazole 40 mg tablet,delayed 40 mg PO DAILY 06/20/24 10/03/24 08/29/24 release insulin lispro 100 unit/mL 18 - 60 unit subcut BIDWMEAL 08/29/24 10/03/24 08/29/24 subcutaneous pen (Admelog SoloStar U-) gvvsyllf-jaic-zlpc 8 mg-folic 400 1 tab PO DAILY 08/29/24 10/03/24 08/29/24 mcg-K 50 mcg-lutein 300 mcg tablet (Centrum Silver Women) ondansetron 4 mg disintegrating 4 mg PO Q4H PRN nausea and 08/29/24 10/03/24 Unknown tablet vomiting 0 days #10 tabs tramadol 50 mg tablet 50 mg PO Q6H PRN pain #14 tabs 08/29/24 10/03/24 Unknown olmesartan 20 mg tablet 20 mg PO DAILY #30 tabs 09/16/24 10/03/24 Unknown apixaban 5 mg tablet 5 mg PO BID #180 tabs 09/29/24 10/03/24 Unknown hydrochlorothiazide 12.5 mg capsule 12.5 mg PO DAILY #30 caps 09/29/24 10/03/24 Unknown Active Medications Generic Name Dose Route Start Last Admin Trade Name Freq PRN Reason Stop Dose Admin Acetaminophen 650 mg 10/03/24 20:50 10/05/24 14:48 Acetaminophen 325 Mg Tab PO 11/02/24 20:49 650 mg Q4H PRN Administration Pain or Fever Pantoprazole Sodium 40 mg in 10 mls @ 5 mls/min 10/03/24 21:00 10/06/24 09:11 Protonix IV 11/02/24 20:59 5 mls/min BID CARMEN Administration Sodium Chloride 500 mls @ 15 mls/hr 10/06/24 07:30 10/06/24 13:16 Nss IV 10/07/24 07:29 15 mls/hr .Q24H CARMEN Administration Insulin Aspart 0 units 10/03/24 21:00 10/06/24 12:45 Insulin Aspart Per Unit Charge SC 11/02/24 20:59 Not Given ACHS CARMEN Insulin Glargine 20 units 10/04/24 09:00 10/06/24 09:38 Lantus Per Unit Charge SQ 11/03/24 08:59 Not Given QAM CARMEN Losartan Potassium 50 mg 10/04/24 09:00 10/06/24 09:11 Losartan Potassium 50 Mg Tab PO 11/03/24 08:59 50 mg DAILY CARMEN Administration Morphine Sulfate 2 mg 10/04/24 11:46 10/05/24 08:43 Morphine Sulfate 2 Mg/Ml Carp IV 10/18/24 11:45 2 mg Q4 PRN Administration Moderate Pain (Scale 4, 5, 6) Ondansetron HCl 4 mg 10/03/24 20:50 10/05/24 08:43 Ondansetron Inj 2 Mg/Ml 2 Ml Vial IV 11/02/24 20:49 4 mg Q6H PRN Administration Nausea Exercise / Class Metabolic Activity Metabolic Activity: II 4-5 Yardwork/Stairs/Walk up hill Physical Exam Constitutional: no acute distress Mouth: no dentition abnormality Thyromental Distance: > or= 3.5 Finger Breadths Mallampati Class: III Neck: + visual inspection normal Respiratory: + respiratory effort normal and + clear to auscultation bilaterally; no respiratory distress Cardiovascular: + regular rate and + regular rhythm; no murmur Musculoskeletal: no limited cervical ROM Psychiatric: + alert and + oriented x 3 ASA ASA3 Proposed Anesthesia Proposed Anesthesia: MAC Risk / Benefits Reviewed With: PT / POA / Parent / Guardian, Accepts Plan and Informed Consent Obtained
--- NOTE | 2024-10-06 13:50 | GI REPORT ---
[facility] Patient: TONY OSHEA : 1950 Sex at : Female Age: 74 Years Procedure: Upper GI endoscopy Date: 10/06/2024 Attending Physician: Abdoulaye Padilla MD Referring MD: Referred Self Indications: - Suspected upper gastrointestinal bleeding Medications: - Monitored Anesthesia Care Complications: - No immediate complications. Procedure: - Prior to the procedure, a History and Physical was performed, and patient medications and allergies were reviewed. The patient's tolerance of previous anesthesia was also reviewed. The risks and benefits of the procedure and the sedation options and risks were discussed with the patient. All questions were answered, and informed consent was obtained. [Anticoagulant Agents] [Days Prior to Procedure]. [ASA Grade]. After reviewing the risks and benefits, the patient was deemed in satisfactory condition to undergo the procedure. - The egd scope was introduced through the mouth and advanced to the second part of the duodenum. - The upper GI endoscopy was accomplished without difficulty. - The patient tolerated the procedure well. Findings: - The examined esophagus was normal. - The entire examined stomach was normal. - There was a medium-sized lipoma in the second portion of the duodenum. Biopsies were taken with a cold forceps for histology. Pillow sign and naked fat sign noted. Impression: - Normal esophagus. - Normal stomach. - Duodenal lipoma. Biopsied. Recommendation: - Resume previous diet. - Patient has a contact number available for emergencies. The signs and symptoms of potential delayed complications were discussed with the patient. Return to normal activities tomorrow. Written discharge instructions were provided to the patient. Procedure Code(s): - 05216, Esophagogastroduodenoscopy, flexible, transoral; with biopsy, single or multiple Diagnosis Code(s): - D17.5, Benign lipomatous neoplasm of intra-abdominal organs CPT(R) - 2023 copyright [employer]. All Rights Reserved. The CPT codes, CCI edits and ICD codes generated are intended as suggestions and were generated based on input data. These codes are preliminary and upon video operator review may be revised to meet current compliance and payer requirements. The provider is responsible for the final determination of appropriate codes, and modifiers. Abdoulaye Padilla MD This document has been electronically signed. Note Initiated:10/06/2024 Note Completed:10/06/2024 1:49 PM \\[email or web address]\Provation\Results\[email or web address]\[id number]
--- NOTE | 2024-10-06 17:03 | Anesthesiology Progress Note ---
Date of Service October 06, 2024 Anesthesia Post Procedure Vital Signs Vital Signs: Temp Pulse Pulse Resp BP BP Pulse Ox 10/06/24 16:29 36.5 C 52 L 18 166/76 H 99 10/06/24 16:00 52 L 18 165/64 H 98 10/06/24 14:40 53 L 18 164/71 H 95 10/06/24 14:21 53 L 16 145/76 H 99 10/06/24 14:06 54 L 16 148/44 H 97 10/06/24 13:51 60 16 134/63 96 10/06/24 13:04 36.1 C L 56 L 18 208/65 H 98 10/06/24 11:38 36.8 C 57 L 18 150/62 H 97 10/06/24 07:53 36.6 C 63 16 128/69 97 10/06/24 06:54 54 L 10/06/24 03:23 36.5 C 56 L 18 136/54 L 97 10/05/24 23:06 36.7 C 62 18 139/76 97 10/05/24 21:14 36.5 C 66 18 160/74 H 95 10/05/24 20:05 10/05/24 20:04 72 O2 Del Method 10/06/24 16:29 Room Air 10/06/24 16:00 Room Air 10/06/24 14:40 Room Air 10/06/24 14:21 Room Air 10/06/24 14:06 Room Air 10/06/24 13:51 Room Air 10/06/24 13:04 Room Air 10/06/24 11:38 Room Air 10/06/24 07:53 Room Air 10/06/24 06:54 10/06/24 03:23 Room Air 10/05/24 23:06 Room Air 10/05/24 21:14 Room Air 10/05/24 20:05 Room Air 10/05/24 20:04 Pain Intensity Abdomen: Pain Intensity: 5 Transfer of Care Handoff Completed per policy Notes Mental Status: alert / awake / arousable Patient Amnestic to Procedure: Yes Nausea / Vomiting: adequately controlled Pain: adequately controlled Airway Patency, RR, SpO2: stable & adequate BP & HR: stable & adequate Hydration State: stable & adequate Anesthetic Complications: no major complications apparent
[2024-10-06] MEDS: POLYETHYLENE (MIRALAX) 17 GM PACK PO PRN (20:51)
--- NOTE | 2024-10-07 13:52 | Gastroenterology Progress Note ---
Date of Service October 07, 2024 Assessment & Plan (1) Upper abdominal pain: Plan: Patient seen by vascular surgeon in August 2024 and was advised to have GI evaluation. She has since had an EGD and abdominal imaging without significant GI findings to explain her symptoms. From 2023-to present she has had an EGD, EUS, colonscopy, multiple CT scans, US, HIDA scan & GES that were unremarkable. Continue PPI. Mesenteric doppler ordered. Will discuss with Dr. Padilla further regarding any further recommendations. Admission and Anticipated Discharge Date Admission Date: October 03, 2024 Supervising Physician Co-Signing Physician Notes I saw and examined this patient with our nurse practitioner and agree with her assessment and plan. Endoscopy was unrevealing for cause of GI symptoms. Her symptoms have been going on for a year now recently exacerbated. She has known severe SMA stenosis and has been seen by vascular surgery who felt this did not need to be addressed. However I have had patients with single-vessel mesenteric disease who improved with stenting. Recommend mesenteric Dopplers to assess whether or not there is any functional issues with her other mesenteric vessels. Her symptoms could be consistent with gastroparesis in light of her diabetes however she had a normal gastric emptying study 1 year ago. If Doppler studies are not helpful may consider a trial of low-dose metoclopramide to see if her symptoms improve. Doppler studies ordered. Subjective Patient is a 74 yo female with abdominal discomfort and decreased appetite. EGD unremarkable yesterday. Colonoscopy in 2023 without acute findings. Patient had a vascular surgery consult in August at which time they did not feel intervention was necessary for possible SMA. They advised further GI evaluation. Review of Systems Gastrointestinal: + abdominal pain and + bloating Physical Exam Constitutional: well developed Gastrointestinal (Abdomen): normal bowel sounds, soft, nontender, no hepatosplenomegaly Results & Data Results & Data Vital Signs (Past 12 Hours) Vital Signs Temp Pulse Pulse Resp BP BP Pulse Ox 10/07/24 11:17 36.7 C 71 16 180/97 H 95 10/07/24 07:53 36.8 C 55 L 18 153/77 H 97 10/07/24 06:58 55 L 10/07/24 02:54 36.6 C 64 18 128/63 98 O2 Del Method 10/07/24 11:17 Room Air 10/07/24 07:53 Room Air 10/07/24 06:58 10/07/24 02:54 Room Air Laboratory Results Laboratory Results - last 48 hr 10/05/24 10/05/24 10/06/24 16:41 20:15 05:41 WBC 3.84 L RBC 3.09 L Hgb 9.6 L Hct 29.1 L MCV 94.2 MCH 31.1 MCHC 33.0 RDW Std Deviation 58.2 H RDW Coeff of Rolando 17.2 H Plt Count 159 MPV 10.5 Sodium 141 Potassium 4.0 Chloride 107 Carbon Dioxide 28 Anion Gap 6 BUN 9 Creatinine 0.79 Est Cr Clr Drug Dosing 70.2 eGFR 79.43 BUN/Creatinine Ratio 11.4 Glucose 102 H POC Glucose 108 H 92 Calcium 8.7 10/06/24 10/06/24 10/06/24 08:19 12:17 17:22 WBC RBC Hgb Hct MCV MCH MCHC RDW Std Deviation RDW Coeff of Rolando Plt Count MPV Sodium Potassium Chloride Carbon Dioxide Anion Gap BUN Creatinine Est Cr Clr Drug Dosing eGFR BUN/Creatinine Ratio Glucose POC Glucose 121 H 122 H 89 Calcium 10/06/24 10/07/24 10/07/24 20:08 08:14 11:49 WBC RBC Hgb Hct MCV MCH MCHC RDW Std Deviation RDW Coeff of Rolando Plt Count MPV Sodium Potassium Chloride Carbon Dioxide Anion Gap BUN Creatinine Est Cr Clr Drug Dosing eGFR BUN/Creatinine Ratio Glucose POC Glucose 209 H 98 104 H Calcium PG Care Time/CCT Total # of Minutes Spent Total Time Spent with Patient: Total time spent is greater than 50% in coordination of care (as documented) at patient's floor/unit and/or counseling patient: Coding Level of Care Code 57591 SUB INP/OBS CARE 2/35MIN Diagnoses Upper abdominal pain R10.10
--- NOTE | 2024-10-07 17:37 | Hospitalist Progress Note ---
"Date of Service October 07, 2024 Assessment & Plan (1) GI bleed: (2) Mesenteric artery stenosis: (3) Hypertension: (4) Diabetes mellitus, type 2: Plan Patient is a 74-year-old female presented with abdominal pain and melena on eliquis. 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 initial evaluation reveals hemoglobin 9.6 with mild elevation of BUN. No electrolyte abnormalities. CT A/P severe SMA stenosis and approximately 50% stenosis of the proximal left renal artery. Chest CTA without PE. Admitted for GI evaluation and futher workup. #GI Bleed | Anemia Slow drop in hgb since starting Eliquis 12.7-->10.7--> 9.6 on admission hx of Fe defiency with recent venofer x3 in July Endoscopy 7 7 without source of bleeding found. Still with postprandial symptoms will try scheduled Reglan at this time continue twice daily PPI Parenteral opiates required due to significance of pain #Mesenteric artery stenosis | renal artery stenosis Follows closely with vascular and nephrology - at this time vascular intervention has been deferred due to risk/benefits Hold Eliquis and ASA for now - other PAD noted on intake imaging Question if GI bleeding is from ischemic enteritis. #HTN Continue Olmesartan (or formulary equivalent) Hold HCTZ with poor PO intake #DM 2 with end organ damage, gastroparesis noted Home Regimen: Lantus 34 Unit + meal time - HELD Hgb A1c 6.4 Lantus + SSI #Headache | Numbness and tingling - left side acute stroke ruled out by Ct Patient reports compliance with Eliquis and symptoms improving. Continue to monitor, defer brain MRI at this time. Head/neck CT with multiple areas of severe stenosis Headache improved that the patient had caffeine DVT proh: SCDs, home ELiquis held Patient remains in the hospital due to inability to eat without discomfort Admission and Anticipated Discharge Date Admission Date: October 03, 2024 Subjective Patient still with significant postprandial nausea bloating and fear of eating, I curbside discussed case with vascular surgery this to look at images and get back to me. No word back yet GI is consulted point mesenteric Dopplers at the present time Physical Exam Physical Exam: Spasms are present mild distention no rebound tenderness no acute abdomen Results & Data Results & Data Vital Signs (Past 12 Hours) Vital Signs Temp Pulse Pulse Resp BP BP Pulse Ox 10/07/24 15:03 97.9 F 58 L 16 150/76 H 98 10/07/24 14:17 59 L 10/07/24 11:17 98.1 F 71 16 180/97 H 95 10/07/24 07:53 98.2 F 55 L 18 153/77 H 97 10/07/24 06:58 55 L O2 Del Method 10/07/24 15:03 Room Air 10/07/24 14:17 10/07/24 11:17 Room Air 10/07/24 07:53 Room Air 10/07/24 06:58 Laboratory Results Reviewed [id number] glucose Discussed case with gastroenterology Discussed case with vascular surgery PG Care Time/CCT Total # of Minutes Spent Total Time Spent with Patient: Total time spent is greater than 50% in coordination of care (as documented) at patient's floor/unit and/or counseling patient: Coding Level of Care Code 22043 SUB INP/OBS CARE 3/50MIN Diagnoses GI bleed K92.2 Mesenteric artery stenosis K55.1 Hypertension I10 Diabetes mellitus, type 2 E11.9"
[2024-10-07] MEDS: METOCLOPRAMIDE HCL INJ 5 MG/ML 2 ML VIAL IV SCH (20:12)
--- NOTE | 2024-10-08 03:54 | Ultrasound Report ---
EXAM: US duplex mesenteric CLINICAL HISTORY: Abdominal pain TECHNIQUE: Static ultrasound images with Grayscale and Doppler of the abdomen and pelvis were submitted for review. COMPARISON: No FINDINGS: Prox Abdominal aorta PSV: 110 cm/s Celiac artery: max velocity 397 cm/s proximally. SMA: Unable to visualize origin well. Maximum velocity 303 cm/s in distal segment with end diastolic velocity (EDV) of 43cm/s and 299 cm/s proximally with EDV of 33cm/s. Mesenteric aortic ratio (MAR): 2.7. IMPRESSION: [id number]. Peak superior mesenteric artery systolic velocity (PSV) is ?275 cm/s, measuring 303cm/s distally /[id number].5.1.1OBX.5.1.2 299cm/s proximally, suggesting stenosis of 70% or greater./OBX.5.1.2/OBX.5.1 Electronically signed by Blayne Oliver 10-08-2024 03:54 AM
[2024-10-08 07:11] LABS: Hematocrit (blood only) 29.9 % (37.0-47.0); Hemoglobin 9.9 g/dl (12.0-16.0); Mean Corpuscular Hemoglobin 30.9 pg (25.0-34.0); Mean Corpuscular Volume 93.4 fL (80.0-100.0); Platelet Count 168 K/uL (130-400); RDW Standard Deviation 57.0 fL (36.4-46.3); Red Blood Count 3.20 M/uL (4.20-5.40); White Blood Count 4.28 K/ul (4.8-10.8)
--- NOTE | 2024-10-08 12:16 | Gastroenterology Progress Note ---
Date of Service October 08, 2024 Assessment & Plan (1) Upper abdominal pain: (2) Superior mesenteric artery stenosis: Plan Patient has had extensive GI work-up without significant GI pathology. She does have SMA stenosis. She is interested in a second opinion from a different vascu lar surgeon, but in the interim we can trial Reglan 5 mg po TID before meals. We discussed that there is side effect potential typically with higher dosages of this medication, however she feels as though the potential benefit of anything to improve her quality of life outweighs risk. Admission and Anticipated Discharge Date Admission Date: October 03, 2024 Supervising Physician Co-Signing Physician Notes I saw and examined this patient with our nurse practitioner and agree with her assessment and plan. Mesenteric Dopplers did not reveal any other significant findings. I still believe she may be symptomatic from single-vessel mesenteric disease. Plans to see vascular surgeon for second opinion regarding her symptoms and imaging. Side effect of her symptoms started while she was on a GlP1 agonist will start a trial of low-dose metoclopramide before meals for possible delayed gastric emptying. Subjective Patient is a 74 yo female with abdominal bloating and fullness/discomfort. She had a mesenteric doppler that showed 70% or greater stenosis. She has had extensive GI work-up as outlined in yesterday's documentation. She is interested in another opinion from vascular surgery. Review of Systems Constitutional: decreased appetite Gastrointestinal: + abdominal pain and + bloating Physical Exam Gastrointestinal (Abdomen): normal bowel sounds, soft, nontender, no hepat osplenomegaly Results & Data Results & Data Vital Signs (Past 12 Hours) Vital Signs Temp Pulse Pulse Resp BP BP Pulse Ox 10/08/24 11:43 36.6 C 61 20 129/66 97 10/08/24 07:46 36.5 C 60 18 158/79 H 97 10/08/24 07:02 57 L 10/08/24 02:54 36.5 C 62 18 172/70 H 93 O2 Del Method 10/08/24 11:43 Room Air 10/08/24 07:46 Room Air 10/08/24 07:02 10/08/24 02:54 Room Air PG Care Time/CCT Total # of Minutes Spent Total Time Spent with Patient: Total time spent is greater than 50% in coordination of care (as documented) at patient's floor/unit and/or counseling patient: Coding Level of Care Code 03790 SUB INP/OBS CARE 350MIN Diagnoses Upper abdominal pain R10.10 Superior mesenteric artery stenosis K55.1
--- NOTE | 2024-10-08 14:47 | Hospitalist Progress Note ---
"Date of Service October 08, 2024 Assessment & Plan (1) GI bleed: (2) Mesenteric artery stenosis: (3) Hypertension: (4) Diabetes mellitus, type 2: Plan Patient is a 74-year-old female presented with abdominal pain and melena on eliquis. 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 initial evaluation reveals hemoglobin 9.6 with mild elevation of BUN. No electrolyte abnormalities. CT A/P severe SMA stenosis and approximately 50% stenosis of the proximal left renal artery. Chest CTA without PE. Admitted for GI evaluation and futher workup. #GI Bleed | Anemia Slow drop in hgb since starting Eliquis 12.7-->10.7--> 9.6 on admission hx of Fe defiency with recent venofer x3 in July Endoscopy 7 7 without source of bleeding found. improved with scheduled Reglan continue twice daily PPI Parenteral opiates required due to significance of pain #Mesenteric artery stenosis | renal artery stenosis Follows closely with vascular and nephrology - at this time vascular intervention has been deferred due to risk/benefits Hold Eliquis and ASA for now - other PAD noted on intake imaging, will hold eliquis at time of discharge Question if GI bleeding is from ischemic enteritis. #HTN Continue Olmesartan (or formulary equivalent) Hold HCTZ with poor PO intake #DM 2 with end organ damage, gastroparesis noted Home Regimen: Lantus 34 Unit + meal time - HELD Hgb A1c 6.4 Lantus + SSI #Headache | Numbness and tingling - left side acute stroke ruled out by Ct Patient reports compliance with Eliquis and symptoms improving. Continue to monitor, defer brain MRI at this time. Head/neck CT with multiple areas of severe stenosis Headache improved that the patient had caffeine DVT proh: SCDs, home ELiquis held Patient remains in the hospital due to inability to eat without discomfort Admission and Anticipated Discharge Date Admission Date: October 03, 2024 Subjective pt feels improved after some iv reglan, changes to po reglan by GI medicine, did have fairly extensive workup in past including GB work up, does have sma stenosis but has not lost weight has gained weight, opinion by vascular surgery is given whole picture not likely sma is a bigger player in her symptoms Physical Exam Physical Exam: normal active bowel sounds soft minor tender lungs are clear Results & Data Results & Data Vital Signs (Past 12 Hours) Vital Signs Temp Pulse Pulse Resp BP BP Pulse Ox 10/08/24 14:12 60 10/08/24 11:43 97.9 F 61 20 129/66 97 10/08/24 07:46 97.7 F 60 18 158/79 H 97 10/08/24 07:02 57 L 10/08/24 02:54 97.7 F 62 18 172/70 H 93 O2 Del Method 10/08/24 14:12 10/08/24 11:43 Room Air 10/08/24 07:46 Room Air 10/08/24 07:02 10/08/24 02:54 Room Air Laboratory Results Reviewed CBC reviewed chemistry personally reviewed case with vascular surgery PG Care Time/CCT Total # of Minutes Spent Total Time Spent with Patient: Total time spent is greater than 50% in coordination of care (as documented) at patient's floor/unit and/or counseling patient: Coding Level of Care Code 11139 SUB INP/OBS CARE 3/50MIN Diagnoses GI bleed K92.2 Mesenteric artery stenosis K55.1 Hypertension I10 Diabetes mellitus, type 2 E11.9"
--- NOTE | 2024-10-08 16:10 | Consultation ---
Date of Consultation October 08, 2024 Assessment & Plan (1) Mesenteric artery stenosis: There is clear radiographic evidence of celiac and superior mesenteric artery stenosis. However her history is not consistent with mesenteric ischemia. She does describe postprandial abdominal pain but it is rather nonspecific and could be due to any 1 of a number of causes. Her weight gain over the last year also strongly argues against any kind of malabsorption or mesenteric artery stenosis causing mesenteric ischemia. While I think that she could technically undergo mesenteric revascularization through an endovascular approach, I am not sure that this would do much of anything to alleviate her symptoms. I discussed this extensively with her. I do think it is worth a follow-up visit with me in about 6 months happy to arrange for this. All questions were answered. History of Present Illness Requesting Physician: Minor Reason for Consultation: Rule out mesenteric ischemia Attending Physician: Ho Gaxiola MD History of Present Illness Asked by Dr. Gaxiola to evaluate this 74-year-old woman with postprandial abdominal pain. She has undergone CT scanning that demonstrates significant atherosclerotic occlusive disease in the mesenteric vessels. Her history goes back a little over a year when she started to notice postprandial abdominal pain. This occurs with all different kinds of foods and she cannot identify any 1 particular type of food that bothers her more than another. Shortly after eating (within 10 to 15 minutes) she develops abdominal pain along with nausea. She does describe some vomiting that is more like spit then undigested food. The pain resolves after an hour or 2 reticulate when she lays down and goes to bed. She does describe an element of reflux as well with some heartburn that occurs after eating but this tends to be separate and distinct from the pain that she develops after eating. Also worth noting she has a similar type of discomfort when there is pressure on her upper chest or bottom of her rib cage which she describes as occurring when her grandchildren sit on her stomach. She thinks that she could eat half of a regular sized meal of the typical restaurant. She describes becoming much more sedentary over the last year and despite this has gained somewhere around 35 to 40 pounds. Her family history is remarkable for atherosclerotic occlusive disease with her father having undergone coronary bypass grafting. Her mother of cancer but also had hypertension. She has several siblings, curiously which she describes as all of them having had their gallbladder out. She is a non-smoker. Allergies Allergy/AdvReac Type Severity Reaction Status Date / Time adhesive tape Allergy Mild Rash Verified 09/29/24 13:45 duloxetine [From Cymbalta] Allergy Unknown Hives Verified 09/29/24 13:45 hydromorphone [From Dilaudid] AdvReac Severe Vomiting Verified 09/29/24 13:45 lisinopril AdvReac Intermediate Cough,bronc Verified 09/29/24 13:45 hospasm oxycodone [From Percocet] AdvReac Unknown Nausea Verified 09/29/24 13:45 Home Medications Medication Instructions Recorded Confirmed Type pen needle, diabetic 32 gauge x #120 ea 02/21/22 09/29/24 Rx 5/32" (BD Kay 2nd Gen Pen Needle) insulin glargine 100 unit/mL (3 34 unit (0.34 mL) subcut QAM #45 mL 10/24/23 10/03/24 Rx mL) subcutaneous pen (Basaglar KwikPen U-100 Insulin) blood sugar diagnostic (OneTouch #100 ea 12/27/23 09/29/24 Rx Ultra Test strips) diabetic supplies, PlumWillow. 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 Simplicity Embossed Or Impressed Lettering Painter) aspirin 81 mg tablet,delayed 81 mg PO DAILY 06/20/24 10/03/24 History release (Adult Aspirin Regimen) lifitegrast 5 % eye drops in a 1 drp ophthalmic (eye) BID 06/20/24 10/03/24 History dropperette (Xiidra) pantoprazole 40 mg tablet,delayed 40 mg PO DAILY 06/20/24 10/03/24 History release insulin lispro 100 unit/mL 18 - 60 unit subcut BIDWMEAL 08/29/24 10/03/24 History subcutaneous pen (Admelog SoloStar U-) vjeuozon-kalc-yrrt 8 mg-folic 400 1 tab PO DAILY 08/29/24 10/03/24 History mcg-K 50 mcg-lutein 300 mcg tablet (Centrum Silver Women) ondansetron 4 mg disintegrating 4 mg PO Q4H PRN nausea and 08/29/24 10/03/24 Rx tablet vomiting 0 days #10 tabs tramadol 50 mg tablet 50 mg PO Q6H PRN pain #14 tabs 08/29/24 10/03/24 Rx olmesartan 20 mg tablet 20 mg PO DAILY #30 tabs 09/16/24 10/03/24 Rx apixaban 5 mg tablet 5 mg PO BID #180 tabs 09/29/24 10/03/24 Rx hydrochlorothiazide 12.5 mg capsule 12.5 mg PO DAILY #30 caps 09/29/24 10/03/24 Rx Patient History Medical History Noncompliance with medication regimen History of kidney stones History of depression History of bipolar disorder Diabetes mellitus, type 2 IBS (irritable bowel syndrome) Gastric intestinal metaplasia Fibromyalgia Hypertension Diabetic retinopathy Diabetic neuropathy COPD (chronic obstructive pulmonary disease) Coronary artery disease Hx of constipation History of diarrhea Hx of nausea and vomiting Carotid stenosis Left ventricular hypertrophy Aortic systolic murmur on examination Anemia Superior mesenteric artery stenosis Hiatal hernia Gastritis GERD (gastroesophageal reflux disease) Hemorrhoids History of Holter monitoring Chest pain syndrome Sleep apnea History of COVID-19 History of anesthesia reaction History of colon polyps Unstable angina Surgical History History of postoperative nausea and vomiting History of colonoscopy (12/2023) History of cardiac cath (~11/23/20) History of esophagogastroduodenoscopy (EGD) History of cataract surgery History of elbow surgery History of bladder surgery History of hysterectomy Family History Mother Diabetes Lung cancer Hypertension Father Diabetes Coronary heart disease S/P CABG (coronary artery bypass graft) Testicular cancer Hypertension Stroke Brother Prostate cancer Diabetes Family history of reaction to anesthesia Brother Prostate cancer Sister Diabetes Lung cancer Family history of reaction to anesthesia Sister Diabetes Autoimmune disease Kidney disease Stroke Grandmother (Paternal) Dementia Grandfather (Maternal) Myocardial infarction Grandmother (Maternal) Liver cancer Sister Diabetes Dementia Denies family history of Ovarian cancer Breast cancer Colorectal cancer Social History Smoking Status: Never smoker Second Hand Exposure: No; Do You Dip or Chew Tobacco: No; Hx Alcohol Use: Yes Alcohol Intake Frequency: Monthly or Less Hx Substance Use: No Preferred Language: Qatari 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 Ability: Effective Visual Impairment: No Limitations 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: Normal 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 Her weight is 94 kg which as noted is up about 15 kg or so over the last year and a half. She has good radial brachial and femoral pulses bilaterally. Results & Data Vital Signs (Past 12 Hours) Vital Signs Temp Pulse Pulse Resp BP Pulse Ox O2 Del Method 10/08/24 14:12 60 10/08/24 11:43 36.6 C 61 20 129/66 97 Room Air 10/08/24 07:46 36.5 C 60 18 158/79 H 97 Room Air 10/08/24 07:02 57 L Diagnostic Findings She underwent mesenteric artery duplex testing on October 03, 2024 that demonstrated peak systolic velocity in the celiac artery of 397 cm/s. The origin of the superior mesenteric artery was not well-visualized. CT arteriogram performed on October 03, 2024 was reviewed personally by me. She does have some diffuse aortoiliac occlusive disease. She has a fairly heavy plaque burden at the celiac origin as well as significant plaque at the origin of the superior mesenteric artery which looks to create a significant stenosis. PG Care Time/CCT Total # of Minutes Spent Total Time Spent with Patient: Total time spent is greater than 50% in coordination of care (as documented) at patient's floor/unit and/or counseling patient: Coding Level of Care Code 23194 INT INP/OBS CARE 3/75MIN Diagnoses Mesenteric artery stenosis K55.1
[2024-10-08] MEDS: METOCLOPRAMIDE HCL 5 MG TABLET PO SCH (17:07)
[2024-10-09 08:07] VITALS: O2SAT 94
[2024-10-09 11:27] VITALS: BP 151/76; RESP 20; TEMP 98.4
[2024-10-09 12:24] VITALS: PULSE 52
--- NOTE | 2024-10-09 14:51 | Discharge Summary ---
Discharge Summary Date of Service October 09, 2024 Principal Dx & Hospital Course #1 = Principal Diagnosis (1) GI bleed: (2) Mesenteric artery stenosis: (3) Hypertension: (4) Diabetes mellitus, type 2: Plan Patient is a 74-year-old female presented with abdominal pain and melena on eliquis. 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 initial evaluation reveals hemoglobin 9.6 with mild elevation of BUN. No electrolyte abnormalities. CT A/P 70% SMA stenosis and approximately 50% stenosis of the proximal left renal artery. Chest CTA without PE. no source of bleeding, no answer for post prandial symptoms, symptoms improved with reglan #GI Bleed | Anemia no source identified Slow drop in hgb since starting Eliquis 12.7-->10.7--> 9.6 on admission hx of Fe defiency with recent venofer x3 in July Endoscopy 7 7 without source of bleeding found. improved with scheduled Reglan continue twice daily PPI with continued gi distress, improved with reglan, recommended elimination diet and follow up with GI medicine and pcp, has had significant work up by GI med #Mesenteric artery stenosis | renal artery stenosis Follows closely with vascular and nephrology - at this time vascular interve ntion has been deferred due to risk/benefits Hold Eliquis and ASA for now - other PAD noted on intake imaging, will hold eliquis at time of discharge Question if GI bleeding is from ischemic enteritis. encouraged to discuss eliquis with nephrology vascular surgery feels sma is not etiology of gi symptoms as pt has not lost weight #HTN Continue Olmesartan (or formulary equivalent) #DM 2 with end organ damage, gastroparesis noted Home Regimen: Lantus 34 Unit + meal time Hgb A1c 6.4 #Headache | Numbness and tingling - left side resolved acute stroke ruled out by Ct Continue to monitor, defer brain MRI at this time. 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 Presents to the ER with the light headedness, abdominal pain, headache and left sided numbness and tingling. Yesterday slow and lightheaded and short of breath. Thought she was just dehydrated because of being out in the heat. She has had minimal p.o. intake because of nausea however but has been trying to stay hydrated because she knows she is on the water pill Headache started around 130 this morning. Has not take anything for the headache. Does not normally get migraines Abdominal pain - reports take her breath away, boated for the last few weeks. Reports dark tary stools For the last couple of weeks, she confirms this is every time that she has a bowel movement. Also with nausea and vomiting, states that the vomit is mostly mucus. She has not noticed any blood. She is on Eliquis and baby aspirin. Reports having a high pain tolerance and not taking much pain medicine at home, was recently given tramadol by the ER but that makes her nauseous and constipated. Denies using any NSAIDs Reports a history of iron deficiency anemia had 3 infusions with the CCP in maintenance. Follow-up soon Lives with her , does not use a walker or cane at baseline. Wishes to be a full code. ED course: PPI 80mg IV Reglan 10mg IV NSS 1000mL IV fenatyl 50mcq citrate Discharge Exam pleasant abd with nabs, soft uncomfortable to exam Discharge Plan Discharge Items Patient Disposition: Home - Self-Care Reason For Visit: GI BLEED Discharge Diagnosis: abdominal pain bleeding from bowel resolved Condition on Discharge: Fair Activity: Resume your previous activity Non-emergency contact: Primary Care Provider and Traveling Secretary Call non-emergency contact if: you have any medication questions Diet: Carb Consistent or DM2 Addtl Attending Provider Instructions: consider eating frequent small meals, consider an elimination diet, where you eliminate a food group that is a common allergy, groups can be such as gluten(wheat), daily, eggs. choose one group and eliminate this for 2-6 weeks to see if you have less gi symptoms, you may get more information from reputable web site or discuss more with your primary care doctor follow up with Gastroenterology please return if fever, nausea and vomiting or pain Pending Studies at Discharge: No Stand-Alone Forms: My [facility], Smoking Cessation Medications and DC Order Prescriptions: New metoclopramide HCl [Reglan] 5 mg tablet 5 mg PO TIDWMEAL Qty: 90 0RF Continued insulin glargine [Basaglar KwikPen U-100 Insulin] 100 unit/mL (3 mL) insulin pen 34 unit SUBCUT QAM Qty: 45 4RF (DME) OneTouch Ultra Test Strip See Rx Instructions .Route Qty: 100 3RF Rx Instructions: Test blood sugar once daily PRN olmesartan 20 mg tablet 20 mg PO DAILY Qty: 30 3RF (DME) pen needle, diabetic [BD Kay 2nd Gen Pen Needle] 32 gauge x 5/32" needle See Rx Instructions miscellaneous .MEDSUPPLY Qty: 120 5RF Rx Instructions: New pen needle 4x a day pantoprazole 40 mg tablet,delayed release (DR/EC) 40 mg PO DAILY aspirin [Adult Aspirin Regimen] 81 mg tablet,delayed release (DR/EC) 81 mg PO DAILY Xiidra 5 % dropperette 1 drp ophthalmic (eye) BID (DME) CeQur Simplicity 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 [employer] House Misc See Rx Instructions .ROUTE .MEDSUPPLY Qty: 1 0RF Rx Instructions: As directed insulin lispro [Admelog SoloStar U-100 Insulin] 100 unit/mL insulin pen 18 - 60 unit subcut BIDWMEAL Rx Instructions: Inject 18 units prior to meals plus SS; TDD 60 units Centrum Silver Women 8 mg iron-400 mcg-50 mcg Tablet 1 tab PO DAILY tramadol 50 mg tablet 50 mg PO Q6H PRN (Reason: pain) Qty: 14 0RF ondansetron 4 mg tablet,disintegrating 4 mg PO Q4H PRN (Reason: nausea and vomiting) Qty: 10 0RF Held apixaban 5 mg tablet 5 mg PO BID Qty: 180 3RF Hold Instructions: Provider's Order, until follow up with Gastroenterology hydrochlorothiazide 12.5 mg capsule 12.5 mg PO DAILY Qty: 30 3RF Hold Instructions: Provider's Order Discharge Orders: Discharge Order (Routine); Ordered 10/09/24 Ordered By: Ho House/Other Patient Handouts: Managing Type 2 Diabetes Admission Data Admit Date/Time: 10/03/24 18:01 Attending Provider: Ho Gaxiola Admit Provider: Philipp Arriaga Primary Care Provider: Oj Wilkes Other Providers: Philipp Arriaga; Abdoulaye Padilla I; Noah Culp Other Interventions: Discharge Summary Assessment (RN) Last Done: 10/09/24 12:23 Hospital Stay Data Consultations 10/03/24 17:06 ED Decision to Admit Stat 10/03/24 18:14 Consult Gastroenterology Routine 10/08/24 14:57 Consult Vascular Surgery Routine Procedures Performed Operation Date: 10/06/24 17:10 Actual Procedures p EGD Biopsy Cytology - Abdoulaye Padilla MD Diagnostic Imagining Performed 10/03/24 15:30 CT angio abdomen pelvis w con Stat CT angio chest dissec wo/w con Stat CT angio neck with con Stat CT head/brain wo con Stat 10/03/24 15:41 CT angio head w con Stat 10/08/24 US duplex mesenteric Routine Pending Results Patient Have Any Pending Studies at Discharge: No Discharge Instructions Given to Patient (Per Discharging Provider) consider eating frequent small meals, consider an elimination diet, where you eliminate a food group that is a common allergy, groups can be such as gluten(wheat), daily, eggs. choose one group and eliminate this for 2-6 weeks to see if you have less gi symptoms, you may get more information from reputable web site or discuss more with your primary care doctor follow up with Gastroenterology please return if fever, nausea and vomiting or pain Total Time Total Time Spent Total Time Spent (In Minutes): It required greater than 30 minutes to prepare this patient for discharge. Coding Level of Care Code 06281 INP/OBS DISCH >30 MIN Diagnoses GI bleed K92.2 Mesenteric artery stenosis K55.1 Hypertension I10 Diabetes mellitus, type 2 E11.9
== END 2024-10-09 13:47 | disposition home or self-care (01) | DRG 378 ==
LOC: ED 15:06 → SUATTDRO 18:01 → 2N 18:01